=== PATIENT | male | born 1965 | race Caucasian/White ===

== ENCOUNTER 2019-09-30 18:20 | Emergency (ER) | payer MEDICAID, SELFPAY ==
[2019-09-30 18:38] VITALS: BP 126/76; PULSE 102; RESP 18; TEMP 36.5; O2SAT 98; BMI 30.2
--- NOTE | 2019-09-30 18:56 | W.ED.MALEGU ---
HPI - Male Genitourinary General: Chief complaint: Urogenital-Male Stated complaint: unable to urinate Time Seen by Provider: 09/30/19 18:45 History of Present Illness: HPI Narrative: Patient seen in clinic in [place] earlier today and a Zuñiga cath was attempted to be placed and without any urine return. Catheter is left in 3 hours still do not have a urine. We will send her to the ER by AUTUMN Morales for further evaluation. Patient recently in a hospital in [place] had multiple infections and skin abscesses catheter was placed and been left in for the last 4 weeks because he has not been able to urinate on his own. Does have follow-up with Dr. Norris scheduled. Complaint: other (Unable to urinate) Onset (ago): week(s) Duration: constant Associated symptoms: Reports no associated symptoms; Deny nausea or vomiting Review of Systems Narrative: Recent skin infections Const: Denies: fever, chills or body aches Eyes: Denies: change in vision or blurry vision ENMT: Denies: throat pain or nasal congestion Card: Denies: chest pain or shortness of breath on exertion Resp: Denies: shortness of breath, productive cough or non-productive cough GI: Denies: abdominal pain, nausea or vomiting : Reports: difficulty urinating Musc: Denies: extremity pain Skin/Breast: Denies: rash Neuro: Denies: headache Psych: Denies: anxiety or depression Juan/Lymph: Denies: easy bruising PFSH ED PFSH: Social History Smoking and tobacco status: never smoked Physical Exam Const: COMMON NORMALS: no apparent distress, average body habitus and oriented x3 HENMT: COMMON NORMALS: normocephalic HEAD & SCALP: normal to inspection and normocephalic FACE & SINUS: normal facial exam Eye: COMMON NORMALS: conjunctivae normal GENERAL EYE: normal appearance of both eyes CONJUNCTIVA: Yes conjunctivae normal Neck/C-Spine: COMMON NORMALS: no JVD Chest: COMMONS NORMALS: inspection of chest normal Resp: COMMON NORMALS: normal respiratory effort and clear to auscultation bilaterally AUSCULTATION: clear to auscultation bilaterally Cardio: COMMON NORMALS: no JVD, regular rate and regular rhythm RATE: regular rate RHYTHM: regular rhythm GI: COMMON NORMALS: normal to inspection, nondistended, normoactive bowel sounds Extremity: COMMON NORMALS: normal to inspection and full ROM Neuro: COMMON NORMALS: oriented x3 Course Vital Signs: Vital signs: Vital Signs Temperature 97.7 F 09/30/19 18:38 Pulse Rate 102 H 09/30/19 18:38 Respiratory Rate 18 09/30/19 18:38 Blood Pressure 126/76 09/30/19 18:38 Pulse Oximetry 98 09/30/19 18:38 Coding Level of Care Code ED 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
[2019-09-30 19:55] VITALS: BP 112/73; PULSE 100; RESP 14; TEMP 36.6; O2SAT 96
== END 2019-09-30 19:50 | disposition home or self-care (01) ==
PROVIDERS: Emergency Provider Nurse Practitioner Family
DX: R39.198 Other difficulties with micturition (principal)
CPT/HCPCS: 12345; 51702; 99282

== ENCOUNTER 2019-11-17 15:43 | Outpatient (RCR) | payer MEDICAID, SELFPAY ==
--- NOTE | 2019-11-17 16:06 | XR_ITS ---
WS: [id number] RIGHT FOOT: 3 VIEW(S) TECHNIQUE: AP, oblique and lateral. HISTORY: PAIN, REDNESS, nonhealing ULCER COMPARISON: None available. Amputation sites along the proximal metatarsals. Soft tissue edema surrounding the amputation sites. Superficial soft tissue erosion distal to the sec ond metatarsal amputation. No definite osteomyelitis or bone destruction. No air in the soft tissues. Small calcaneal spur. XR/XR foot RT min 3V* [id number] IMPRESSION: 1. No radiographic evidence for osteomyelitis. 2. Soft tissue edema at the amputation site. Superficial soft tissue ulceratio n distal to the second metatarsal.
== END 2019-11-17 23:59 | disposition home or self-care (01) ==
LOC: WOUND 15:43
PROVIDERS: PCP Nurse Practitioner Family; Visit Provider Thoracic Surgery (Cardiothoracic Vascular Surgery)
DX: E11.621 Type 2 diabetes mellitus with foot ulcer (principal); L97.412 Non-pressure chronic ulcer of right heel and midfoot with fat layer exposed; M79.671 Pain in right foot
CPT/HCPCS: 11042; 73630; 99203; L4387

== ENCOUNTER 2019-11-23 09:42 | Outpatient (CLI) | payer MEDICAID, SELFPAY | END 2019-11-23 09:43 | disposition home or self-care (01) | LOC: WOUND 09:43 | PROVIDERS: PCP Nurse Practitioner Family; Visit Provider Thoracic Surgery (Cardiothoracic Vascular Surgery) | DX: E11.621 Type 2 diabetes mellitus with foot ulcer (principal); L97.412 Non-pressure chronic ulcer of right heel and midfoot with fat layer exposed | CPT/HCPCS: 11042 ==

== ENCOUNTER 2019-11-30 09:45 | Outpatient (CLI) | payer MEDICAID, SELFPAY | END 2019-11-30 09:46 | disposition home or self-care (01) | LOC: WOUND 09:46 | PROVIDERS: Visit Provider Thoracic Surgery (Cardiothoracic Vascular Surgery) | DX: E11.621 Type 2 diabetes mellitus with foot ulcer (principal); L97.412 Non-pressure chronic ulcer of right heel and midfoot with fat layer exposed | CPT/HCPCS: 11042 ==

== ENCOUNTER 2019-12-02 09:59 | Day surgery (SDC) | payer MEDICAID, SELFPAY ==
[2019-11-25 14:00] VITALS: BMI 31.4
--- NOTE | 2019-11-28 08:33 | W.PM.OPSFHP ---
Same Day Surgery H&P Indication for Procedure/HPI DATE OF PROCEDURE: November 28, 2019 CHIEF COMPLAINT/INDICATIONFOR SURGICAL PROCEDURE: Screening colonoscopy PREOP DIAGNOSIS: Screening colonoscopy PLANNED PROCEDRUE: Operation Date: 11/28/19 07:50 Proposed Procedures p EGD/COLONSCOPY 81829 D64.9 G0121 Z12.11(Not Applicable) - Leroy Wagner MD s Colonoscopy(Not Applicable) - Leroy Wagner MD Medications/Allergies* Home Medications Medication Instructions Recorded Confirmed Type atorvastatin 40 mg PO DAILY 09/30/19 11/25/19 History citalopram 20 mg PO DAILY 09/30/19 11/25/19 History furosemide 40 mg PO DAILY 09/30/19 11/25/19 History insulin detemir U-100 [Levemir See Rx Instructions .ROUTE .COMPLEX 09/30/19 11/25/19 History U-100 Insulin] insulin lispro [Humalog U-100 7 unit SUBCUT TID 09/30/19 11/25/19 History Insulin] lisinopril 5 mg PO DAILY 09/30/19 11/25/19 History metoprolol tartrate 25 mg PO BID 09/30/19 11/25/19 History Allergies/Adverse Reactions Allergy/AdvReac Type Severity Reaction Status Date / Time No Known Allergies Allergy Verified 11/01/19 14:46 Pertinent History/Comorbid Conditions* Medical History (Updated 11/01/19 @ 14:59 by Leroy Wagner MD) Acute cystitis without hematuria Acute urinary retention Hypertension Insulin dependent diabetes mellitus Surgical History (Updated 10/26/19 @ 10:28 by Juan Norris MD) S/P cholecystectomy Family History (Updated 10/26/19 @ 08:28 by Keila Peoples LPN) Father, at age 60 Mother, at age 73 Myocardial infarction (lateral wall) Father Diabetes Mother Social History Smoking and tobacco status: never smoked Alcohol intake: never Marital status: Single Current occupational status: disabled History of recent travel: No Pertinent Exam Findings alert, oriented x 3, clear to auscultation bilaterally, regular rate & rhythm, operative site marked and procedure specific exam findings Recommendations Surgery/Procedure today Coding Level of Care Code Acute Pantograph I Engraver for Madelyn Chavarria
--- NOTE | 2019-12-02 09:18 | P.HP_ITS ---
Same Day Surgery H&P Indication for Procedure/HPI DATE OF PROCEDURE: December 02, 2019 CHIEF COMPLAINT/INDICATIONFOR SURGICAL PROCEDURE: Screen for colon cancer PREOP DIAGNOSIS: Screening colonoscopy PLANNED PROCEDRUE: Operation Date: 12/02/19 11:20 Proposed Procedures p EGD/COLONSCOPY 39161 D64.9 G0121 Z12.11(Not Applicable) - Leroy Wagner MD s Colonoscopy(Not Applicable) - Leroy Wagner MD Medications/Allergies* Home Medications Medication Instructions Recorded Confirmed Type atorvastatin 40 mg PO DAILY 09/30/19 11/25/19 History citalopram 20 mg PO DAILY 09/30/19 11/25/19 History furosemide 40 mg PO DAILY 09/30/19 11/25/19 History insulin detemir U-100 [Levemir See Rx Instructions .ROUTE .COMPLEX 09/30/19 11/25/19 History U-100 Insulin] insulin lispro [Humalog U-100 7 unit SUBCUT TID 09/30/19 11/25/19 History Insulin] lisinopril 5 mg PO DAILY 09/30/19 11/25/19 History metoprolol tartrate 25 mg PO BID 09/30/19 11/25/19 History Allergies/Adverse Reactions Allergy/AdvReac Type Severity Reaction Status Date / Time No Known Allergies Allergy Verified 11/01/19 14:46 Pertinent History/Comorbid Conditions* Medical History (Updated 11/01/19 @ 14:59 by Leroy Wagner MD) Acute cystitis without hematuria Acute urinary retention Hypertension Insulin dependent diabetes mellitus Surgical History (Updated 10/26/19 @ 10:28 by Juan Norris MD) S/P cholecystectomy Family History (Updated 10/26/19 @ 08:28 by Keila Peoples LPN) Father, at age 60 Mother, at age 73 Myocardial infarction (lateral wall) Father Diabetes Mother Social History Smoking and tobacco status: never smoked Alcohol intake: never Marital status: Single Current occupational status: disabled History of recent travel: No Pertinent Exam Findings alert, oriented x 3, clear to auscultation bilaterally, regular rate & rhythm, operative site marked and procedure specific exam findings Recommendations Surgery/Procedure today Coding Level of Care Code Acute 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
[2019-12-02 10:19] VITALS: BP 126/77; PULSE 102; RESP 16; TEMP 36.2; O2SAT 96
--- NOTE | 2019-12-02 10:21 | ANES.PREANE2 ---
Pre-Anesthetic Assessment Pre-Anesthetic Assessment: Height/Weight: Height 1.8 m Weight 102.058 kg Temp Pulse Resp BP Pulse Ox 97.1 F L 102 H 16 126/77 96 12/02/19 10:19 12/02/19 10:19 12/02/19 10:19 12/02/19 10:19 12/02/19 10:19 Preop Diagnosis: c Proposed Procedure: Operation Date: 12/02/19 11:20 Proposed Procedures p EGD/COLONSCOPY 78473 D64.9 G0121 Z12.11(Not Applicable) - Leroy Wagner MD s Colonoscopy(Not Applicable) - Leroy Wagner MD Familial anesthetic complications: None Was Beta Melissa taken within 24 hours: N/A (will give PO med now (HR 101)) Last intake: NPO > 8 hrs Social: Social History: No alcohol and No tobacco Exam: Pre-Anes Outpt Exam: alert, oriented x 3, clear to auscultation bilaterally and regular rate & rhythm Airway: Cervical ROM: WNL MP: 2 Dentition: Chipped Additional comments: missing Pulmonary: Pulmonary: Cough (chronic (unkown etiology) - started before july, cat vs dust allergen) CV/HEM: CV/HEM: HTN : : None reported Hepatic: Hepatic: None reported GI: GI: None reported Metabolic: Metabolic: DM and Hyperlipidemia Musc/skel: Musc/skel: None reported Neuropsych: Comments: In july had L side pain and couldn't walk, kept in hospital for a month, but he is unaware of what caused. He said they ruled out a stroke. Anesthetic Plan: ASA status: 2 Anesthesia: MAC Risk of > 500 ml blood loss (7ml/kg in children): No PFSH Anesthesia PFSH: Medical History (Updated 11/01/19 @ 14:59 by Leroy Wagner MD) Acute cystitis without hematuria Acute urinary retention Hypertension Insulin dependent diabetes mellitus Surgical History S/P cholecystectomy Family History Father , at age 60 Myocardial infarction (lateral wall) Mother , at age 73 Diabetes Social History Smoking and tobacco status: never smoked Alcohol intake: never Marital status: Single Current occupational status: disabled History of recent travel: No Data Anesthesia Cardiac Studies: No Data to Display
[2019-12-02] MEDS: metoprolol tartrate 25 mg Tablet PO (10:29)
[2019-12-02 10:42] LABS: Glucose Point of Care 315 mg/dL (70-110)
[2019-12-02] MEDS: sodium chloride 0.9% 1,000 ML 30 ML IV (10:42)
[2019-12-02] MEDS: insulin regular-human 100 units/1 mL 10 UNIT IVP (10:50)
[2019-12-02 12:20] VITALS: BP 97/69; PULSE 79; RESP 16; TEMP 36.2; O2SAT 94
[2019-12-02 12:43] VITALS: BP 95/64; PULSE 76; RESP 18; O2SAT 98
== END 2019-12-02 13:05 | disposition home or self-care (01) ==
PROVIDERS: PCP Nurse Practitioner Family; Visit Provider Internal Medicine
PROC: 0DJD8ZZ Inspection of Lower Intestinal Tract, Via Natural or Artificial Opening Endoscopic (ICD-10-PCS; CPT 45378; 2019-12-02 11:15)
PROC: 0DJ08ZZ Inspection of Upper Intestinal Tract, Via Natural or Artificial Opening Endoscopic (ICD-10-PCS; CPT 43235; 2019-12-02 11:15)
DX: Z12.11 Encounter for screening for malignant neoplasm of colon (principal); D50.9 Iron deficiency anemia, unspecified; I10 Essential (primary) hypertension; E11.9 Type 2 diabetes mellitus without complications; E78.5 Hyperlipidemia, unspecified
CPT/HCPCS: 12345; 36416; 43235; 45378; 82962; 96374; J1815; J2001; J2704; J7030

== ENCOUNTER 2019-12-07 10:28 | Outpatient (CLI) | payer MEDICAID, SELFPAY | END 2019-12-07 10:29 | disposition home or self-care (01) | LOC: WOUND 10:28 | PROVIDERS: PCP Nurse Practitioner Family; Visit Provider Thoracic Surgery (Cardiothoracic Vascular Surgery) | DX: E11.621 Type 2 diabetes mellitus with foot ulcer (principal); L97.413 Non-pressure chronic ulcer of right heel and midfoot with necrosis of muscle | CPT/HCPCS: 11042 ==

== ENCOUNTER 2019-12-14 10:36 | Outpatient (CLI) | payer MEDICAID, SELFPAY | END 2019-12-14 10:37 | disposition home or self-care (01) | LOC: WOUND 10:37 | PROVIDERS: PCP Nurse Practitioner Family; Visit Provider Thoracic Surgery (Cardiothoracic Vascular Surgery) | DX: E11.621 Type 2 diabetes mellitus with foot ulcer (principal); L97.413 Non-pressure chronic ulcer of right heel and midfoot with necrosis of muscle | CPT/HCPCS: 11042 ==

== ENCOUNTER 2019-12-16 14:23 | Outpatient (CLI) | payer MEDICAID, SELFPAY | END 2019-12-16 14:24 | disposition home or self-care (01) | LOC: WOUND 14:24 | PROVIDERS: PCP Nurse Practitioner Family; Visit Provider Surgery | DX: E11.621 Type 2 diabetes mellitus with foot ulcer (principal); L97.412 Non-pressure chronic ulcer of right heel and midfoot with fat layer exposed | CPT/HCPCS: 11042 ==

== ENCOUNTER → 2019-12-19 09:16 | Outpatient (BNVA) | payer MEDICAID, SELFPAY | PROVIDERS: PCP Nurse Practitioner Family; Visit Provider Urology | DX: R33.8 Other retention of urine (principal); N30.00 Acute cystitis without hematuria | CPT/HCPCS: 81001 ==

== ENCOUNTER 2019-12-21 11:03 | Outpatient (CLI) | payer MEDICAID, SELFPAY | END 2019-12-21 11:04 | disposition home or self-care (01) | LOC: WOUND 11:04 | PROVIDERS: PCP Nurse Practitioner Family; Visit Provider Thoracic Surgery (Cardiothoracic Vascular Surgery) | DX: E11.621 Type 2 diabetes mellitus with foot ulcer (principal); L97.412 Non-pressure chronic ulcer of right heel and midfoot with fat layer exposed | CPT/HCPCS: 11042 ==

== ENCOUNTER 2019-12-21 13:44 | Emergency (ER) | payer MEDICAID, SELFPAY ==
[2019-12-21 13:51] VITALS: BP 124/82; PULSE 80; RESP 16; TEMP 36.8; O2SAT 97; BMI 31.4
--- NOTE | 2019-12-21 13:56 | ED_ITS ---
HPI - Nausea/Vomiting/Diarrhea General: Chief complaint: Nausea/Vomiting/Diarrhea Stated complaint: n/v Time Seen by Provider: 12/21/19 13:52 Source: patient Mode of arrival: ambulatory Limitations: no limitations History of Present Illness: HPI Narrative: Patient comes in with nausea and vomiting since yesterday evening. Patient reports that his blood sugars been running high and his last A1c was 13. 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 Patient reports that his blood sugar this morning was 350 and then 250 at wound care. Patient appears well. Patient appears in no pain. Review of Systems General: Reports: 10 or more systems reviewed and unremarkable except in HPI and below PFSH ED PFSH: Medical History (Updated 12/21/19 @ 15:53 by AUTUMN Giles) Acute cystitis without hematuria Acute urinary retention Hypertension Insulin dependent diabetes mellitus Surgical History H/O amputation all toes S/P cholecystectomy S/P debridement thigh and foot Family History Father , at age 60 Myocardial infarction (lateral wall) Mother , at age 73 Diabetes Social History Smoking and tobacco status: never smoked Alcohol intake: never Marital status: Single Current occupational status: disabled History of recent travel: No Physical Exam Const: COMMON NORMALS: no acute distress and patient oriented x3 GENERAL APPEARANCE: cooperative HENMT: COMMON NORMALS: normocephalic, TM's normal bilaterally and Normal external nose present HEAD & SCALP: normal to inspection and normocephalic NOSE: Normal external nose present TYMPANIC MEMBRANE: TM's normal bilaterally MOUTH: Normal oral and palatal mucosa present THROAT: posterior oropharynx normal Eye: GENERAL EYE: appearance normal, both eyes and all related structures Neck/C-Spine: COMMON NORMALS: full ROM Lymph: LYMPHATIC: no lymphadenopathy noted Chest: COMMONS NORMALS: normal inspection of the chest Resp: COMMON NORMALS: normal respiratory effort EFFORT & INSPECTION: Yes able to speak in complete sentences Cardio: COMMON NORMALS: regular rate and regular rhythm RATE: regular rate RHYTHM: regular rhythm GI: COMMON NORMALS: non-tender : COMMON NORMALS: Yes no CVA tenderness BLADDER/KIDNEY EXAM: Yes no CVA tenderness Back/Pelvis: COMMON NORMALS: no CVA tenderness and thoracic and lumbar spine normal to inspection Extremity: COMMON NORMALS: normal to inspection Neuro: COMMON NORMALS: patient oriented x3 and moves all extremities Psych: COMMON NORMALS: mental status grossly normal and cooperative Skin: COMMON NORMALS: no rashes or lesions noted GENERAL SKIN EXAM: no rashes or lesions noted Course ED course: 1550, patient appears improved. Patient did have some positive ketones in his serum. Patient does report improvement with his nausea. Patient did ask for some medication to help with stomach irritation.wjw 1635, patient felt much relieved after administration of GI cocktail and Reglan. Reviewed instructions for aftercare with patient. Patient reported understanding and agreed to plan. Vital Signs: Vital signs: Vital Signs Temperature 98.3 F 12/21/19 13:51 Pulse Rate 100 12/21/19 15:46 Respiratory Rate 16 12/21/19 15:46 Blood Pressure 117/89 12/21/19 15:46 Pulse Oximetry 97 12/21/19 15:46 MDM - Nausea/Vomiting/Diarrhea MDM Narrative: Medical decision making narrative: Patient comes in today for complaints of nausea and vomiting since last night. Patient appears well. Exam notes no abdominal tenderness. Respirations were even lungs were clear to auscultation vital signs were normal. Patient does have a history of diabetes and reports that his sugar got as high as 500 last night. Differential diagnosis includes gastroenteritis, pancreatitis, diabetic ketoacidosis. CBC was normal. CMP noted a blood glucose of 288, sodium 135, BUN of 23, and anion gap of 20. Patient did have a small amount of ketones noted in his serum. Patient was hydrated with 1500 mL's of saline. Patient was given Reglan and a GI cocktail. Patient had good results with resolution of symptoms. Patient will be continued on medication for nausea and vomiting. Patient will then continue his routine treatment for his diabetes. Suspect a bout of gastroenteritis. Patient should monitor for worsening symptoms and return to the ER as needed. Patient reported understanding of care plan and need for follow-up. Lab Data: Labs: Lab Results 12/21/19 12/21/19 12/21/19 Range/Units 14:04 14:13 14:13 WBC 9.1 (4.0-10.0) 10^3/ uL RBC 5.23 (4.1-5.3) 10^6/u L Hgb 14.2 (11.7-16.6) g/dL Hct 43.8 (42.0-52.0) % MCV 83.7 (80-94) fL MCH 27.2 L (28.0-34.0) pg MCHC 32.4 (30.0-36.0) g/dL RDW 13.5 (12.1-15.1) % Plt Count 311 (130-400) 10^3/c mm MPV 10.0 (7.4-10.4) fL Neut % (Auto) 68.8 % Lymph % (Auto) 22.3 % Chester % (Auto) 6.3 % Eos % (Auto) 1.4 % Baso % (Auto) 0.7 % Neut # (Auto) 6.3 (1.8-7.7) 10^3/u L Lymph # (Auto) 2.0 (0.8-4.8) 10^3/u L Chester # (Auto) 0.6 (0.2-0.9) 10^3/u L Eos # (Auto) 0.1 (0.0-0.8) 10^3/u L Baso # (Auto) 0.1 (0.0-0.1) 10^3/u L Nucleated RBC % (a uto) 0 % Nucleated RBCs # 0.0 /100WBC Sodium 135 L (136-145) mmol/L Potassium 4.4 (3.5-5.1) mmol/L Chloride 95 L (98-107) mmol/L Carbon Dioxide 24 (22-29) mmol/L Anion Gap 20.4 H (5-19) BUN 23 H (6-20) mg/dL Creatinine 0.9 (0.7-1.2) mg/dL GFR Calculation 87.6 L (90-130) mL/min Glucose 288 H (65-115) mg/dL Calculated Osmolal ity 287 (285-295) mOsm/k g Lactic Acid (0.5-2.2) mmol/L Calcium 10.5 (8.5-10.5) mg/dL Total Bilirubin 0.3 (0.15-1.2) mg/dL AST 19 (0-40) U/L ALT 18 (0-41) U/L Alkaline Phosphata se 116 (40-130) IU/L Total Protein 8.0 (6.6-8.7) g/dL Albumin 4.2 (3.5-5.2) g/dL Globulin 3.8 (1.3-4.6) g/dL Lipase 26 (13-60) U/L Urine Color Yellow (Yellow) Urine Appearance Clear (CLEAR) Urine pH 5.0 (5-7) Ur Specific Gravit y 1.020 (1.005-1.030) Urine Protein 1+ H (Negative) Urine Glucose (UA) 4+ H (Normal) Urine Ketones 1+ H (Negative) Urine Blood Neg (Negative) Urine Nitrate Negative (Negative) Urine Bilirubin Neg (NEGATIVE) Urine Urobilinogen Norm (Negative) mg/dL Ur Leukocyte Destiny ase Negative (Negative) Urine RBC Rare (0-2) /hpf Urine WBC None (0-5) /hpf Ur Squamous Epith Cells 0-4 H (0-5) Urine Bacteria Trace (NONE) Urine Mucus 2+ Serum Ketones (Negative) 12/21/19 12/21/19 Range/Units 14:13 14:13 WBC (4.0-10.0) 10^3/ uL RBC (4.1-5.3) 10^6/u L Hgb (11.7-16.6) g/dL Hct (42.0-52.0) % MCV (80-94) fL MCH (28.0-34.0) pg MCHC (30.0-36.0) g/dL RDW (12.1-15.1) % Plt Count (130-400) 10^3/c mm MPV (7.4-10.4) fL Neut % (Auto) % Lymph % (Auto) % Chester % (Auto) % Eos % (Auto) % Baso % (Auto) % Neut # (Auto) (1.8-7.7) 10^3/u L Lymph # (Auto) (0.8-4.8) 10^3/u L Chester # (Auto) (0.2-0.9) 10^3/u L Eos # (Auto) (0.0-0.8) 10^3/u L Baso # (Auto) (0.0-0.1) 10^3/u L Nucleated RBC % (a uto) % Nucleated RBCs # /100WBC Sodium (136-145) mmol/L Potassium (3.5-5.1) mmol/L Chloride (98-107) mmol/L Carbon Dioxide (22-29) mmol/L Anion Gap (5-19) BUN (6-20) mg/dL Creatinine (0.7-1.2) mg/dL GFR Calculation (90-130) mL/min Glucose (65-115) mg/dL Calculated Osmolal ity (285-295) mOsm/k g Lactic Acid 2.0 (0.5-2.2) mmol/L Calcium (8.5-10.5) mg/dL Total Bilirubin (0.15-1.2) mg/dL AST (0-40) U/L ALT (0-41) U/L Alkaline Phosphata se (40-130) IU/L Total Protein (6.6-8.7) g/dL Albumin (3.5-5.2) g/dL Globulin (1.3-4.6) g/dL Lipase (13-60) U/L Urine Color (Yellow) Urine Appearance (CLEAR) Urine pH (5-7) Ur Specific Gravit y (1.005-1.030) Urine Protein (Negative) Urine Glucose (UA) (Normal) Urine Ketones (Negative) Urine Blood (Negative) Urine Nitrate (Negative) Urine Bilirubin (NEGATIVE) Urine Urobilinogen (Negative) mg/dL Ur Leukocyte Destiny ase (Negative) Urine RBC (0-2) /hpf Urine WBC (0-5) /hpf Ur Squamous Epith Cells (0-5) Urine Bacteria (NONE) Urine Mucus Serum Ketones Positive H (Negative) Discharge Plan Discharge Patient Disposition: Home, Self-Care Clinical Impression: Hyperglycemia Nausea & vomiting Qualifiers: Vomiting type: unspecified Vomiting Intractability: non-intractable Qualified Code(s): R11.2 - Nausea with vomiting, unspecified Condition: Stable Prescriptions: New metoclopramide HCl 10 mg tablet 10 mg PO Q6H 7 Days Qty: 28 RF: 0 Carafate 1 gram tablet 1 gm PO TID Qty: 30 RF: 0 No Action furosemide 40 mg tablet 40 mg PO DAILY RF: 0 atorvastatin 40 mg tablet 40 mg PO DAILY RF: 0 citalopram 20 mg tablet 20 mg PO DAILY RF: 0 lisinopril 5 mg tablet 5 mg PO DAILY RF: 0 insulin lispro [Humalog U-100 Insulin] 100 unit/mL Solution See Rx Instructions .ROUTE .COMPLEX RF: 0 metoprolol tartrate 25 mg tablet 25 mg PO BID RF: 0 Levemir U-100 Insulin 100 unit/mL Solution See Rx Instructions .ROUTE .COMPLEX RF: 0 Pepto-Bismol 262 mg Tablet,Chewable 262 mg PO PRN RF: 0 tamsulosin 0.4 mg capsule 0.4 mg PO DAILY RF: 0 Discharge Orders: Discharge Order (Routine); Ordered 12/21/19 Ordered By: Judd Kern Referrals: Catherine Barcenas FNP-C [Primary Care Provider] - Discharge Diet: Advance as tolerated Discharge Activity: Increase activity as tolerated Activity Restrictions/Additional Instructions: Continue with routine medications as directed. Drink plenty of water. Symptoms should improve within 3 to 5 days. But if symptoms persist or worsen and you are not able to hold any fluids down return to the ER immediately. Follow-up with primary care in 1 week for recheck. Coding Level of Care Code ED Small Electric Engine Technician for Madelyn Fwdiya Exam Comprehensive
[2019-12-21 14:25] LABS: Basophils # 0.1 10^3/uL (0.0-0.1); Basophils % 0.7 %; Eosinophils # 0.1 10^3/uL (0.0-0.8); Eosinophils % 1.4 %; Hematocrit 43.8 % (42.0-52.0); Hemoglobin 14.2 g/dL (11.7-16.6); Lymphocytes % 22.3 %; Mean Corpuscular HGB Conc 32.4 g/dL (30.0-36.0); Mean Corpuscular Hemoglobin 27.2 pg (28.0-34.0); Mean Corpuscular Volume 83.7 fL (80-94); Monocytes # 0.6 10^3/uL (0.2-0.9); Monocytes % 6.3 %; Neutrophils # 6.3 10^3/uL (1.8-7.7); Neutrophils % 68.8 %; Nucleated Red Blood Cells % 0 %; Platelet Count 311 10^3/cmm (130-400); Red Blood Count 5.23 10^6/uL (4.1-5.3); Red Cell Distribution Width 13.5 % (12.1-15.1); White Blood Count 9.1 10^3/uL (4.0-10.0)
[2019-12-21 14:31] LABS: Add Urine Microscopic? YES; Bilirubin Urine Neg (NEGATIVE); Blood Urine Neg (Negative); Glucose Urine UA 4+ (Normal); Ketones Urine 1+ (Negative); Leukocyte Esterase Urine Negative (Negative); Nitrate Urine Negative (Negative); Protein Urine 1+ (Negative); Urine Appearance Clear (CLEAR); Urine Color Yellow (Yellow); Urobilinogen Urine Norm (Negative)
[2019-12-21 14:31] LABS: Ketone (Acetest) Serum Positive (Negative)
[2019-12-21] MEDS: ondansetron 2 mg/ML SDV 2 mL 4 MG IVP (14:34)
[2019-12-21] MEDS: sodium chloride 0.9% 1,000 ML 999 ML IV (14:34)
[2019-12-21 14:39] LABS: Alanine Aminotransferase 18 U/L (0-41); Albumin Level 4.2 g/dL (3.5-5.2); Alkaline Phosphatase 116 IU/L (40-130); Anion Gap 20.4 (5-19); Aspartate Amino Transferase 19 U/L (0-40); Blood Urea Nitrogen 23 mg/dL (6-20); Calcium 10.5 mg/dL (8.5-10.5); Carbon Dioxide 24 mmol/L (22-29); Chloride 95 mmol/L (98-107); Globulin 3.8 g/dL (1.3-4.6); Glomerular Filtration Rate 87.6 mL/min (90-130); Glucose 288 mg/dL (65-115); Lipase 26 U/L (13-60); Osmolality Calculated 287 mOsm/kg (285-295); Potassium 4.4 mmol/L (3.5-5.1); Sodium 135 mmol/L (136-145); Total Bilirubin 0.3 mg/dL (0.15-1.2)
[2019-12-21 14:42] LABS: RBC Urine RARE /hpf (0-2)
[2019-12-21 14:43] LABS: Add Urine Culture? No; Bacteria Urine TRACE; Mucus Urine 2+; Squamous Epithelial Cell Urine 0-4 (0-5)
[2019-12-21 15:46] VITALS: BP 117/89; PULSE 100; RESP 16; O2SAT 97
--- NOTE | 2019-12-21 15:47 | PC.NURSE ---
Physician was at bedside at time of vitals.
[2019-12-21] MEDS: lidocaine 2% viscous 15 ML, aluminum-mag hydrox-simethicon 30 ML, sucralfate oral liq 1 GM PO (16:10)
[2019-12-21] MEDS: sodium chloride 0.9% 500 ML 999 ML IV (16:10)
[2019-12-21] MEDS: metoclopramide 5 mg/mL SDV 2 mL 10 MG IVP (16:11)
[2019-12-21 17:07] VITALS: BP 135/81; PULSE 91; RESP 14; O2SAT 96
== END 2019-12-21 17:08 | disposition home or self-care (01) ==
PROVIDERS: Emergency Provider Nurse Practitioner Family; PCP Nurse Practitioner Family
DX: E11.65 Type 2 diabetes mellitus with hyperglycemia (principal); Z79.4 Long term (current) use of insulin; I10 Essential (primary) hypertension
CPT/HCPCS: 12345; 36415; 80053; 81001; 82009; 83605; 83690; 85025; 96361; 96374; 96375; 99282; 99283; J2405; J2765; J7030; J7040

== ENCOUNTER → 2019-12-28 11:01 | Outpatient (BNVA) | payer MEDICAID, SELFPAY | PROVIDERS: PCP Nurse Practitioner Family; Visit Provider Specialist | DX: G56.22 Lesion of ulnar nerve, left upper limb (principal) | CPT/HCPCS: 95908 ==

== ENCOUNTER 2019-12-28 13:14 | Outpatient (CLI) | payer MEDICAID, SELFPAY | END 2019-12-28 13:15 | disposition home or self-care (01) | LOC: WOUND 13:15 | PROVIDERS: PCP Nurse Practitioner Family; Visit Provider Thoracic Surgery (Cardiothoracic Vascular Surgery) | DX: E11.621 Type 2 diabetes mellitus with foot ulcer (principal); L97.422 Non-pressure chronic ulcer of left heel and midfoot with fat layer exposed | CPT/HCPCS: 11042 ==

== ENCOUNTER 2020-01-04 13:19 | Outpatient (CLI) | payer MEDICAID, SELFPAY | END 2020-01-04 13:20 | disposition home or self-care (01) | PROVIDERS: PCP Nurse Practitioner Family; Visit Provider Nurse Practitioner Family | DX: E11.621 Type 2 diabetes mellitus with foot ulcer (principal); L97.412 Non-pressure chronic ulcer of right heel and midfoot with fat layer exposed | CPT/HCPCS: 11042 ==

== ENCOUNTER 2020-01-11 13:21 | Outpatient (CLI) | payer MEDICAID, SELFPAY | END 2020-01-11 13:22 | disposition home or self-care (01) | LOC: WOUND 13:22 | PROVIDERS: PCP Nurse Practitioner Family; Visit Provider Thoracic Surgery (Cardiothoracic Vascular Surgery) | DX: E11.621 Type 2 diabetes mellitus with foot ulcer (principal); L97.412 Non-pressure chronic ulcer of right heel and midfoot with fat layer exposed | CPT/HCPCS: 11042 ==

== ENCOUNTER 2020-01-18 10:56 | Outpatient (CLI) | payer MEDICAID, SELFPAY | END 2020-01-18 10:57 | disposition home or self-care (01) | LOC: WOUND 10:57 | PROVIDERS: PCP Nurse Practitioner Family; Visit Provider Thoracic Surgery (Cardiothoracic Vascular Surgery) | DX: E11.621 Type 2 diabetes mellitus with foot ulcer (principal); L97.419 Non-pressure chronic ulcer of right heel and midfoot with unspecified severity | CPT/HCPCS: 99212 ==

== ENCOUNTER 2020-01-25 11:01 | Outpatient (CLI) | payer MEDICAID, SELFPAY | END 2020-01-25 11:02 | disposition home or self-care (01) | LOC: WOUND 11:01 | PROVIDERS: PCP Nurse Practitioner Family; Visit Provider Thoracic Surgery (Cardiothoracic Vascular Surgery) | DX: Z09 Encounter for follow-up examination after completed treatment for conditions other than malignant neoplasm (principal) | CPT/HCPCS: 99212 ==

== ENCOUNTER 2020-02-01 09:47 | Outpatient (CLI) | payer MEDICAID, SELFPAY | END 2020-02-01 09:48 | disposition home or self-care (01) | LOC: WOUND 09:53 | PROVIDERS: PCP Nurse Practitioner Family; Visit Provider Thoracic Surgery (Cardiothoracic Vascular Surgery) | DX: E11.621 Type 2 diabetes mellitus with foot ulcer (principal); L97.412 Non-pressure chronic ulcer of right heel and midfoot with fat layer exposed | CPT/HCPCS: 11042 ==

== ENCOUNTER → 2020-02-07 10:11 | Outpatient (BNVA) | payer MEDICAID, SELFPAY | PROVIDERS: PCP Nurse Practitioner Family; Visit Provider Podiatrist Foot & Ankle Surgery | DX: L97.522 Non-pressure chronic ulcer of other part of left foot with fat layer exposed (principal); Z89.9 Acquired absence of limb, unspecified; Z89.422 Acquired absence of other left toe(s) | CPT/HCPCS: 73630 ==

== ENCOUNTER 2020-02-07 10:43 | Outpatient (CLI) | payer MEDICAID, SELFPAY | END 2020-02-07 10:44 | disposition home or self-care (01) | LOC: SPT 10:44 | PROVIDERS: PCP Nurse Practitioner Family; Visit Provider Podiatrist Foot & Ankle Surgery | DX: Z46.89 Encounter for fitting and adjustment of other specified devices (principal); L97.522 Non-pressure chronic ulcer of other part of left foot with fat layer exposed; Z89.9 Acquired absence of limb, unspecified | CPT/HCPCS: 97760; L4361 ==

== ENCOUNTER 2020-02-08 09:53 | Outpatient (CLI) | payer MEDICAID, SELFPAY | END 2020-02-08 09:54 | disposition home or self-care (01) | LOC: WOUND 09:54 | PROVIDERS: PCP Nurse Practitioner Family; Visit Provider Emergency Medicine | DX: E11.621 Type 2 diabetes mellitus with foot ulcer (principal); L97.422 Non-pressure chronic ulcer of left heel and midfoot with fat layer exposed | CPT/HCPCS: 11042 ==

== ENCOUNTER 2020-02-22 10:18 | Outpatient (CLI) | payer MEDICAID, SELFPAY | END 2020-02-22 10:19 | disposition home or self-care (01) | LOC: WOUND 10:21 | PROVIDERS: PCP Nurse Practitioner Family; Visit Provider Nurse Practitioner Family | DX: Z09 Encounter for follow-up examination after completed treatment for conditions other than malignant neoplasm (principal) | CPT/HCPCS: 99212 ==

== ENCOUNTER 2020-03-01 14:12 | Outpatient (CLI) | payer MEDICAID, SELFPAY | END 2020-03-01 14:13 | disposition home or self-care (01) | LOC: SPT 14:12 | PROVIDERS: PCP Nurse Practitioner Family; Visit Provider Podiatrist Foot & Ankle Surgery | DX: Z46.89 Encounter for fitting and adjustment of other specified devices (principal); L97.512 Non-pressure chronic ulcer of other part of right foot with fat layer exposed | CPT/HCPCS: 97760; L4361 ==

== ENCOUNTER 2020-04-20 11:20 | Emergency (ER) | payer MEDICAID, SELFPAY ==
[2020-04-20] VITALS (7 sets, daily range): BP systolic 132–145; BP diastolic 75–90; PULSE 86–97; RESP 16–17; TEMP 36.8; O2SAT 85–96; BMI 34.2
--- NOTE | 2020-04-20 10:40 | XR_ITS ---
WS: [id number] Portable AP upright chest, 04/20/2020 Clinical Data: covid - cough Comparison: None. Findings: There is a patchy opacity in the left lower lobe which may represent minimal pneumonia. The right lung is clear. No nodules, masses or effusions are seen. The heart is normal. The pulmonary va scularity is not increased. No pneumothorax is seen. XR/XR chest 1V portable [id number] Impression: Patchy opacity in the left lower lobe which could represent pneumonia and recom mend repeat chest x-ray in one to 2 days.
--- NOTE | 2020-04-20 10:41 | ED_ITS ---
Documented by User: Hermelinda Martinesguicho 04/20/20 15:44 HPI - SOB/Dyspnea General: Chief Complaint: Upper Respiratory Infection Stated Complaint: covid+, coughing Time Seen by Provider: 04/20/20 17:18 Source: patient Mode of arrival: ambulatory Limitations: no limitations History of Present Illness: HPI Narrative: Pt test positive for Covid yesterday. Pt states he has increased SOB MD elicited complaint: shortness of breath and cough Pertinent past history: COPD and diabetes (DM Type 2) Context: other (COVID 19 positive) Exacerbating factors: exertion and coughing Relieving factors: oxygen and rest Known history of: COPD Associated symptoms: Reports chest congestion, cough and myalgias; Deny abdominal pain, chest pain, diaphoresis, dizziness, extremity pain, fever(s), hemoptysis, lightheadedness, nausea, orthopnea, palpitations, paresthesias, polydipsia, polyuria, rash, sense of impending doom, syncope, vomiting or other Treatment prior to arrival: oxygen Related Data: Home oxygen amount: none Review of Systems Const: Denies: fever(s) or diaphoresis Card: Denies: chest pain, palpitations, lightheadedness, syncope or orthopnea Resp: Reports: chest congestion; Denies: hemoptysis GI: Denies: abdominal pain, nausea or vomiting Musc: Denies: extremity pain Neuro: Denies: dizziness Endo: Denies: polyuria or polydipsia PFSH ED PFSH: Medical History Acute cystitis without hematuria Acute urinary retention Hypertension Insulin dependent diabetes mellitus Surgical History H/O amputation all toes S/P cholecystectomy S/P debridement thigh and foot Family History Father , at age 60 Myocardial infarction (lateral wall) Mother , at age 73 Diabetes Social History Smoking and tobacco status: never smoked Alcohol intake: never Substance/Drug Use: never Marital status: Single Current occupational status: disabled History of recent travel: No Course ED course: Called and spoke with Pulmonogist who recommends admission we do not have bed capacty here so I spoke to [facility] for transfer. [facility] recommends sending home on . Pt continues to desat with exertion. Based on patients physicale lizeth castellano, I feel patient should be admitted. No Covid beds here at [facility]. I am speaking with [facility] for COVID transfer Vital Signs: Vital signs: Vital Signs Temperature 98.3 F 04/20/20 10:38 Pulse Rate 87 04/20/20 16:42 Respiratory Rate 17 04/20/20 11:20 Blood Pressure 145/79 04/20/20 16:42 Pulse Oximetry 85 L 04/20/20 17:26 MDM - SOB/Dyspnea Lab Data: Labs: Lab Results 04/20/20 04/20/20 04/20/20 Range/Units 10:52 10:52 10:52 WBC 6.3 (4.0-10.0) 10^3/ uL RBC 4.34 (4.1-5.3) 10^6/u L Hgb 12.4 (11.7-16.6) g/dL Hct 39.0 L (42.0-52.0) % MCV 89.9 (80-94) fL MCH 28.6 (28.0-34.0) pg MCHC 31.8 (30.0-36.0) g/dL RDW 14.0 (12.1-15.1) % Plt Count 251 (130-400) 10^3/c mm MPV 9.2 (7.4-10.4) fL Neut % (Auto) 72.7 % Lymph % (Auto) 15.9 % [place] % (Auto) 7.8 % Eos % (Auto) 2.5 % Baso % (Auto) 0.3 % Neut # (Auto) 4.56 (1.8-7.7) 10^3/u L Lymph # (Auto) 1.0 (0.8-4.8) 10^3/u L [place] # (Auto) 0.5 (0.2-0.9) 10^3/u L Eos # (Auto) 0.2 (0.0-0.8) 10^3/u L Baso # (Auto) 0.0 (0.0-0.1) 10^3/u L Nucleated RBC % (a uto) 0 % Nucleated RBCs # 0.0 /100WBC D-Dimer 0.57 (0-0.59) ug/mIFE U Specimen Type Sample Site ABG pH (7.35-7.45) ABG pCO2 (35-45) mmHg ABG pO2 (80.0-100.0) mmH g ABG HCO3 (22-26) mmol/L ABG O2 Saturation ABG Base Excess (-2.0-2.0) mmol/ L Stephane Test A-a O2 Gradient (5-10) mmHg Hematocrit (42-52) % Hgb O2 Saturation (95-100) % Carboxyhemoglobin (0.4-20.1) %THgb Methemoglobin (0.4-1.5) % Total Hemoglobin (14-18) g/dL Ionized Calcium (1.1-1.4) mmol/L O2 Delivery Device O2 Liters/Min % FiO2 % Branch Operation Evaluation Manager ID Sodium 135 L (136-145) mmol/L Potassium 4.9 (3.5-5.1) mmol/L Chloride 102 (98-107) mmol/L Carbon Dioxide 24 (22-29) mmol/L Anion Gap 13.9 (5-19) BUN 21 H (6-20) mg/dL Creatinine 0.9 (0.7-1.2) mg/dL GFR Calculation 87.6 L (90-130) mL/min Glucose 208 H (65-115) mg/dL Calculated Osmolal ity 289 (285-295) mOsm/k g Lactate (0.5-2.2) mmol/L Calcium 8.5 (8.5-10.5) mg/dL Ferritin 228 (30-400) ng/mL Total Bilirubin 0.3 (0.15-1.2) mg/dL AST 21 (0-40) U/L ALT 16 (0-41) U/L Alkaline Phosphata se 137 H (40-130) IU/L Lactate Dehydrogen ase 165 (135-225) U/L Total Protein 7.3 (6.6-8.7) g/dL Albumin 3.8 (3.5-5.2) g/dL Globulin 3.5 (1.3-4.6) g/dL Urine Color (Yellow) Urine Appearance (CLEAR) Urine pH (5-7) Ur Specific Gravit y (1.005-1.030) Urine Protein (Negative) Urine Glucose (UA) (Normal) Urine Ketones (Negative) Urine Blood (Negative) Urine Nitrate (Negative) Urine Bilirubin (Negative) Urine Urobilinogen (Negative) mg/dL Ur Leukocyte Destiny ase (Negative) Urine RBC (0-2) /hpf Urine WBC (0-5) /hpf Ur Squamous Epith Cells (0-5) /hpf Amorphous Sediment Urine Bacteria (NONE) /hpf Urine Mucus /hpf 04/20/20 04/20/20 04/20/20 Range/Units 12:28 12:42 13:08 WBC (4.0-10.0) 10^3/ uL RBC (4.1-5.3) 10^6/u L Hgb (11.7-16.6) g/dL Hct (42.0-52.0) % MCV (80-94) fL MCH (28.0-34.0) pg MCHC (30.0-36.0) g/dL RDW (12.1-15.1) % Plt Count (130-400) 10^3/c mm MPV (7.4-10.4) fL Neut % (Auto) % Lymph % (Auto) % [place] % (Auto) % Eos % (Auto) % Baso % (Auto) % Neut # (Auto) (1.8-7.7) 10^3/u L Lymph # (Auto) (0.8-4.8) 10^3/u L [place] # (Auto) (0.2-0.9) 10^3/u L Eos # (Auto) (0.0-0.8) 10^3/u L Baso # (Auto) (0.0-0.1) 10^3/u L Nucleated RBC % (a uto) % Nucleated RBCs # /100WBC D-Dimer (0-0.59) ug/mIFE U Specimen Type Arterial Sample Site Radial, right ABG pH 7.38 (7.35-7.45) ABG pCO2 37.4 (35-45) mmHg ABG pO2 101.0 H (80.0-100.0) mmH g ABG HCO3 22.3 (22-26) mmol/L ABG O2 Saturation 98.5 ABG Base Excess -2.5 L (-2.0-2.0) mmol/ L Stephane Test Pos A-a O2 Gradient 6.9 (5-10) mmHg Hematocrit 36.2 L (42-52) % Hgb O2 Saturation 96.9 (95-100) % Carboxyhemoglobin 0.9 (0.4-20.1) %THgb Methemoglobin 0.8 (0.4-1.5) % Total Hemoglobin 11.8 L (14-18) g/dL Ionized Calcium 1.1 (1.1-1.4) mmol/L O2 Delivery Device Nc O2 Liters/Min 2.0 % FiO2 28.0 % Branch Operation Evaluation Manager ID Monro Sodium 139.0 (136-145) mmol/L Potassium 4.6 (3.5-5.1) mmol/L Chloride (98-107) mmol/L Carbon Dioxide (22-29) mmol/L Anion Gap (5-19) BUN (6-20) mg/dL Creatinine (0.7-1.2) mg/dL GFR Calculation (90-130) mL/min Glucose 206.0 H (65-115) mg/dL Calculated Osmolal ity (285-295) mOsm/k g Lactate 1.0 (0.5-2.2) mmol/L Calcium (8.5-10.5) mg/dL Ferritin (30-400) ng/mL Total Bilirubin (0.15-1.2) mg/dL AST (0-40) U/L ALT (0-41) U/L Alkaline Phosphata se (40-130) IU/L Lactate Dehydrogen ase (135-225) U/L Total Protein (6.6-8.7) g/dL Albumin (3.5-5.2) g/dL Globulin (1.3-4.6) g/dL Urine Color Dark yellow (Yellow) Urine Appearance Clear (CLEAR) Urine pH 5 (5-7) Ur Specific Gravit y 1.020 (1.005-1.030) Urine Protein 2+ H (Negative) Urine Glucose (UA) 1+ (Normal) Urine Ketones 1+ H (Negative) Urine Blood Neg (Negative) Urine Nitrate Negative (Negative) Urine Bilirubin 1+ H (Negative) Urine Urobilinogen 1 H (Negative) mg/dL Ur Leukocyte Destiny ase Negative (Negative) Urine RBC None (0-2) /hpf Urine WBC 0-4 H (0-5) /hpf Ur Squamous Epith Cells 0-4 H (0-5) /hpf Amorphous Sediment Not Reportable Urine Bacteria Trace (NONE) /hpf Urine Mucus 1+ /hpf Discharge Plan Discharge Patient Disposition: Home Clinical Impression: SOB (shortness of breath) on exertion Pneumonia Qualifiers: Pneumonia type: due to unspecified organism Laterality: left Lung location: lower lobe of lung Qualified Code(s): J18.9 - Pneumonia, unspecified organism Condition: Stable Prescriptions: New doxycycline hyclate 100 mg capsule 100 mg PO BID 10 Days Qty: 20 RF: 0 albuterol sulfate 90 mcg/actuation aerosol powdr breath activated 2 inh INHALATION Q6H PRN (Reason: shortness of breath or wheezing) Qty: 1 RF: 0 prednisone 20 mg tablet 20 mg PO TID 5 Days Qty: 15 RF: 0 No Action mupirocin 2 % ointment 1 applic TOPICAL BID Qty: 30 RF: 0 furosemide 40 mg tablet 40 mg PO DAILY RF: 0 atorvastatin 40 mg tablet 40 mg PO DAILY RF: 0 citalopram 20 mg tablet 20 mg PO DAILY RF: 0 metoprolol tartrate 25 mg tablet 25 mg PO BID RF: 0 tamsulosin 0.4 mg capsule 0.4 mg PO DAILY RF: 0 ibuprofen 200 mg Tablet 400 mg PO DAILY PRN (Reason: Pain) RF: 0 metformin 500 mg tablet 500 mg PO BID RF: 0 cetirizine 10 mg tablet 10 mg PO DAILY RF: 0 Vitamin D2 1,250 mcg (50,000 unit) capsule See Rx Instructions .ROUTE .COMPLEX RF: 0 Ventolin HFA 90 mcg/actuation HFA aerosol inhaler 2 puff INHALATION Q4H PRN (Reason: Shortness Of Breath) RF: 0 fluticasone propionate 50 mcg/actuation spray,suspension 1 spray INTRANASAL DAILY RF: 0 metoclopramide HCl 10 mg tablet 10 mg PO Q6H RF: 0 Novolog Flexpen U-100 Insulin 100 unit/mL (3 mL) insulin pen See Rx Instructions .ROUTE .COMPLEX RF: 0 Lantus Solostar U-100 Insulin 100 unit/mL (3 mL) insulin pen 60 unit SUBCUT DAILY RF: 0 Eliquis 5 mg tablet 5 mg PO BID RF: 0 Bevespi Aerosphere 9-4.8 mcg HFA aerosol inhaler 2 puff INHALATION BID RF: 0 Discharge Orders: Discharge Order (Routine); Ordered 04/20/20 Ordered By: Leo Long Referrals: Catherine Barcenas UTILITIES MANAGER-C [Primary Care Provider] - Discharge Diet: Regular Discharge Activity: Increase activity as tolerated, Limit activity as instructed and Oxygen as instructed Patient Instructions: Using Oxygen at Home (ED), Pneumonia (ED) Activity Restrictions/Additional Instructions: Follow-up with medical provider as directed in 5-7 days. Take medications as prescribed. Continue self quarantine for the total of 14 days due to positive COVID-19 test. Return to the ER or your medical provider if condition worsens. Please read and understand discharge instructions. If any questions, please ask. Discharge Date/Time: 04/20/20 22:47 Sign Out Sign Out Data: Patient Sign Out occurred on 04/20/20 at 17:18. Patient's care was discussed, and care was transferred from to SIVA Cabral. Coding Level of Care Code ED Personnel Supervisor for Chg Fwd Exam Comprehensive Documented by User: SIVA Cabral 04/21/20 02:49 HPI - SOB/Dyspnea General: Chief Complaint: Upper Respiratory Infection Stated Complaint: covid+, coughing Time Seen by Provider: 04/20/20 17:18 [facility] ED PFSH: Medical History Acute cystitis without hematuria Acute urinary retention Hypertension Insulin dependent diabetes mellitus Surgical History H/O amputation all toes S/P cholecystectomy S/P debridement thigh and foot Family History Father , at age 60 Myocardial infarction (lateral wall) Mother , at age 73 Diabetes Social History Smoking and tobacco status: never smoked Alcohol intake: never Substance/Drug Use: never Marital status: Single Current occupational status: disabled History of recent travel: No Physical Exam Const: COMMON NORMALS: patient oriented x3 HENMT: COMMON NORMALS: normocephalic HEAD & SCALP: normocephalic MOUTH: Normal oral and palatal mucosa present THROAT: posterior oropharynx normal and uvula midline Neck/C-Spine: COMMON NORMALS: supple GENERAL: Yes normal visual inspection Resp: COMMON NORMALS: normal respiratory effort, No retractions and No use of accessory muscles EFFORT & INSPECTION: Yes able to speak in complete sentences AUSCULTATION: diminished lung sounds on the left in the lower lung chavis Cardio: COMMON NORMALS: regular rate, regular rhythm, S1 normal heart sound present, S2 normal heart sound present, No gallops present (Cardio), No clicks present (Cardio), No murmurs present (Cardio) and Peripheral pulses 2+ throughout RATE: regular rate RHYTHM: regular rhythm HEART SOUNDS: S1 normal heart sound present and S2 normal heart sound present PERIPHERAL PULSES: Peripheral pulses 2+ throughout GI: COMMON NORMALS: Normal to inspection, nondistended, normoactive bowel sounds present, Soft to palpation, non-tender and no masses PALPATION: Yes Soft to palpation : COMMON NORMALS: Yes no CVA tenderness BLADDER/KIDNEY EXAM: Yes no CVA tenderness Back/Pelvis: COMMON NORMALS: no CVA tenderness Neuro: COMMON NORMALS: patient oriented x3 and moves all extremities Course Vital Signs: Vital signs: Vital Signs Temperature 98.3 F 04/20/20 10:38 Pulse Rate 87 04/20/20 16:42 Respiratory Rate 17 04/20/20 11:20 Blood Pressure 145/79 04/20/20 16:42 Pulse Oximetry 85 L 04/20/20 17:26 MDM - SOB/Dyspnea MDM Narrative: Medical decision making narrative: Patient care was transferred over to me at 5 PM by Hermelinda Hahn. She told me that patient is going home but they are waiting on home O2 evaluation by our respiratory therapist. She told me that once respiratory does not home O2 evaluation he can be discharged home on some doxycycline and albuterol and possibly O2 if patient qualifies. Respiratory performed a home O2 evaluation on patient. Patient qualified for 3 L of oxygen. I wrote a prescription and home health is coming here to the ED to discharge patient with oxygen for home. Return to ED precautions given. Patient understood and agreed with plan. Lab Data: Attestation: I reviewed the patient's lab results. Labs: Lab Results 04/20/20 04/20/20 04/20/20 Range/Units 10:52 10:52 10:52 WBC 6.3 (4.0-10.0) 10^3/ uL RBC 4.34 (4.1-5.3) 10^6/u L Hgb 12.4 (11.7-16.6) g/dL Hct 39.0 L (42.0-52.0) % MCV 89.9 (80-94) fL MCH 28.6 (28.0-34.0) pg MCHC 31.8 (30.0-36.0) g/dL RDW 14.0 (12.1-15.1) % Plt Count 251 (130-400) 10^3/c mm MPV 9.2 (7.4-10.4) fL Neut % (Auto) 72.7 % Lymph % (Auto) 15.9 % [place] % (Auto) 7.8 % Eos % (Auto) 2.5 % Baso % (Auto) 0.3 % Neut # (Auto) 4.56 (1.8-7.7) 10^3/u L Lymph # (Auto) 1.0 (0.8-4.8) 10^3/u L [place] # (Auto) 0.5 (0.2-0.9) 10^3/u L Eos # (Auto) 0.2 (0.0-0.8) 10^3/u L Baso # (Auto) 0.0 (0.0-0.1) 10^3/u L Nucleated RBC % (a uto) 0 % Nucleated RBCs # 0.0 /100WBC D-Dimer 0.57 (0-0.59) ug/mIFE U Specimen Type Sample Site ABG pH (7.35-7.45) ABG pCO2 (35-45) mmHg ABG pO2 (80.0-100.0) mmH g ABG HCO3 (22-26) mmol/L ABG O2 Saturation ABG Base Excess (-2.0-2.0) mmol/ L Stephane Test A-a O2 Gradient (5-10) mmHg Hematocrit (42-52) % Hgb O2 Saturation (95-100) % Carboxyhemoglobin (0.4-20.1) %THgb Methemoglobin (0.4-1.5) % Total Hemoglobin (14-18) g/dL Ionized Calcium (1.1-1.4) mmol/L O2 Delivery Device O2 Liters/Min % FiO2 % Branch Operation Evaluation Manager ID Sodium 135 L (136-145) mmol/L Potassium 4.9 (3.5-5.1) mmol/L Chloride 102 (98-107) mmol/L Carbon Dioxide 24 (22-29) mmol/L Anion Gap 13.9 (5-19) BUN 21 H (6-20) mg/dL Creatinine 0.9 (0.7-1.2) mg/dL GFR Calculation 87.6 L (90-130) mL/min Glucose 208 H (65-115) mg/dL Calculated Osmolal ity 289 (285-295) mOsm/k g Lactate (0.5-2.2) mmol/L Calcium 8.5 (8.5-10.5) mg/dL Ferritin 228 (30-400) ng/mL Total Bilirubin 0.3 (0.15-1.2) mg/dL AST 21 (0-40) U/L ALT 16 (0-41) U/L Alkaline Phosphata se 137 H (40-130) IU/L Lactate Dehydrogen ase 165 (135-225) U/L Total Protein 7.3 (6.6-8.7) g/dL Albumin 3.8 (3.5-5.2) g/dL Globulin 3.5 (1.3-4.6) g/dL Urine Color (Yellow) Urine Appearance (CLEAR) Urine pH (5-7) Ur Specific Gravit y (1.005-1.030) Urine Protein (Negative) Urine Glucose (UA) (Normal) Urine Ketones (Negative) Urine Blood (Negative) Urine Nitrate (Negative) Urine Bilirubin (Negative) Urine Urobilinogen (Negative) mg/dL Ur Leukocyte Destiny ase (Negative) Urine RBC (0-2) /hpf Urine WBC (0-5) /hpf Ur Squamous Epith Cells (0-5) /hpf Amorphous Sediment Urine Bacteria (NONE) /hpf Urine Mucus /hpf 04/20/20 04/20/20 04/20/20 Range/Units 12:28 12:42 13:08 WBC (4.0-10.0) 10^3/ uL RBC (4.1-5.3) 10^6/u L Hgb (11.7-16.6) g/dL Hct (42.0-52.0) % MCV (80-94) fL MCH (28.0-34.0) pg MCHC (30.0-36.0) g/dL RDW (12.1-15.1) % Plt Count (130-400) 10^3/c mm MPV (7.4-10.4) fL Neut % (Auto) % Lymph % (Auto) % [place] % (Auto) % Eos % (Auto) % Baso % (Auto) % Neut # (Auto) (1.8-7.7) 10^3/u L Lymph # (Auto) (0.8-4.8) 10^3/u L [place] # (Auto) (0.2-0.9) 10^3/u L Eos # (Auto) (0.0-0.8) 10^3/u L Baso # (Auto) (0.0-0.1) 10^3/u L Nucleated RBC % (a uto) % Nucleated RBCs # /100WBC D-Dimer (0-0.59) ug/mIFE U Specimen Type Arterial Sample Site Radial, right ABG pH 7.38 (7.35-7.45) ABG pCO2 37.4 (35-45) mmHg ABG pO2 101.0 H (80.0-100.0) mmH g ABG HCO3 22.3 (22-26) mmol/L ABG O2 Saturation 98.5 ABG Base Excess -2.5 L (-2.0-2.0) mmol/ L Stephane Test Pos A-a O2 Gradient 6.9 (5-10) mmHg Hematocrit 36.2 L (42-52) % Hgb O2 Saturation 96.9 (95-100) % Carboxyhemoglobin 0.9 (0.4-20.1) %THgb Methemoglobin 0.8 (0.4-1.5) % Total Hemoglobin 11.8 L (14-18) g/dL Ionized Calcium 1.1 (1.1-1.4) mmol/L O2 Delivery Device Nc O2 Liters/Min 2.0 % FiO2 28.0 % Branch Operation Evaluation Manager ID Monro Sodium 139.0 (136-145) mmol/L Potassium 4.6 (3.5-5.1) mmol/L Chloride (98-107) mmol/L Carbon Dioxide (22-29) mmol/L Anion Gap (5-19) BUN (6-20) mg/dL Creatinine (0.7-1.2) mg/dL GFR Calculation (90-130) mL/min Glucose 206.0 H (65-115) mg/dL Calculated Osmolal ity (285-295) mOsm/k g Lactate 1.0 (0.5-2.2) mmol/L Calcium (8.5-10.5) mg/dL Ferritin (30-400) ng/mL Total Bilirubin (0.15-1.2) mg/dL AST (0-40) U/L ALT (0-41) U/L Alkaline Phosphata se (40-130) IU/L Lactate Dehydrogen ase (135-225) U/L Total Protein (6.6-8.7) g/dL Albumin (3.5-5.2) g/dL Globulin (1.3-4.6) g/dL Urine Color Dark yellow (Yellow) Urine Appearance Clear (CLEAR) Urine pH 5 (5-7) Ur Specific Gravit y 1.020 (1.005-1.030) Urine Protein 2+ H (Negative) Urine Glucose (UA) 1+ (Normal) Urine Ketones 1+ H (Negative) Urine Blood Neg (Negative) Urine Nitrate Negative (Negative) Urine Bilirubin 1+ H (Negative) Urine Urobilinogen 1 H (Negative) mg/dL Ur Leukocyte Destiny ase Negative (Negative) Urine RBC None (0-2) /hpf Urine WBC 0-4 H (0-5) /hpf Ur Squamous Epith Cells 0-4 H (0-5) /hpf Amorphous Sediment Not Reportable Urine Bacteria Trace (NONE) /hpf Urine Mucus 1+ /hpf Imaging Data^: CXR: Attestation: I personally reviewed and interpreted this imaging study as follows: Radiologist's impression: [address] [place] [address] XRay Report Signed Patient: Leo Bond Unit #: [id number] : 1965 Age/Sex: 54 / M ADM Date: 04/20/20 Loc: ER Room/Bed: Attending Dr: Ordering Provider/Ordering MD: Hermelinda Goss NP Date of Service: 04/20/20 Procedure(s): XR chest 1V portable [id number] Accession Number(s): [id number] Report Number: [id number] WS: [id number] Portable AP upright chest, 04/20/2020 Clinical Data: covid - cough Comparison: None. Findings: There is a patchy opacity in the left lower lobe which may represent minimal pneumonia. The right lung is clear. No nodules, masses or effusions are seen. The heart is normal. The pulmonary vascularity is not increased. No pneumothorax is seen. XR/XR chest 1V portable [id number] Impression: Patchy opacity in the left lower lobe which could represent pneumonia and recommend repeat chest x- ray in one to 2 days. Dictated By: Patricia Mckeon MD Signed By: Patricia Mckeon MD Signed Date/Time: 04/20/20 1223 DD/ 1222 Discharge Plan Discharge Patient Disposition: Home Clinical Impression: SOB (shortness of breath) on exertion Pneumonia Qualifiers: Pneumonia type: due to unspecified organism Laterality: left Lung location: lower lobe of lung Qualified Code(s): J18.9 - Pneumonia, unspecified organism Condition: Stable Prescriptions: New doxycycline hyclate 100 mg capsule 100 mg PO BID 10 Days Qty: 20 RF: 0 albuterol sulfate 90 mcg/actuation aerosol powdr breath activated 2 inh INHALATION Q6H PRN (Reason: shortness of breath or wheezing) Qty: 1 RF: 0 prednisone 20 mg tablet 20 mg PO TID 5 Days Qty: 15 RF: 0 No Action mupirocin 2 % ointment 1 applic TOPICAL BID Qty: 30 RF: 0 furosemide 40 mg tablet 40 mg PO DAILY RF: 0 atorvastatin 40 mg tablet 40 mg PO DAILY RF: 0 citalopram 20 mg tablet 20 mg PO DAILY RF: 0 metoprolol tartrate 25 mg tablet 25 mg PO BID RF: 0 tamsulosin 0.4 mg capsule 0.4 mg PO DAILY RF: 0 ibuprofen 200 mg Tablet 400 mg PO DAILY PRN (Reason: Pain) RF: 0 metformin 500 mg tablet 500 mg PO BID RF: 0 cetirizine 10 mg tablet 10 mg PO DAILY RF: 0 Vitamin D2 1,250 mcg (50,000 unit) capsule See Rx Instructions .ROUTE .COMPLEX RF: 0 Ventolin HFA 90 mcg/actuation HFA aerosol inhaler 2 puff INHALATION Q4H PRN (Reason: Shortness Of Breath) RF: 0 fluticasone propionate 50 mcg/actuation spray,suspension 1 spray INTRANASAL DAILY RF: 0 metoclopramide HCl 10 mg tablet 10 mg PO Q6H RF: 0 Novolog Flexpen U-100 Insulin 100 unit/mL (3 mL) insulin pen See Rx Instructions .ROUTE .COMPLEX RF: 0 Lantus Solostar U-100 Insulin 100 unit/mL (3 mL) insulin pen 60 unit SUBCUT DAILY RF: 0 Eliquis 5 mg tablet 5 mg PO BID RF: 0 Bevespi Aerosphere 9-4.8 mcg HFA aerosol inhaler 2 puff INHALATION BID RF: 0 Discharge Orders: Discharge Order (Routine); Ordered 04/20/20 Ordered By: Leo Long Referrals: Catherine Barcenas FNP-C [Primary Care Provider] - Discharge Diet: Regular Discharge Activity: Increase activity as tolerated, Limit activity as instructed and Oxygen as instructed Patient Instructions: Using Oxygen at Home (ED), Pneumonia (ED) Activity Restrictions/Additional Instructions: Follow-up with medical provider as directed in 5-7 days. Take medications as prescribed. Continue self quarantine for the total of 14 days due to positive COVID-19 test. Return to the ER or your medical provider if condition worsens. Please read and understand discharge instructions. If any questions, please ask. Discharge Date/Time: 04/20/20 22:47 Sign Out Sign Out Data: Patient Sign Out occurred on 04/20/20 at 17:18. Patient's care was discussed, and care was transferred from to SIVA Cabral. Coding Level of Care Code ED Personnel Supervisor for Madelyn Fwdiya Exam Comprehensive
--- NOTE | 2020-04-20 11:04 | PC.NURSE ---
portable xray at bedside
[2020-04-20 11:05] LABS: Basophils % 0.3 %; Eosinophils # 0.2 10^3/uL (0.0-0.8); Eosinophils % 2.5 %; Hemoglobin 12.4 g/dL (11.7-16.6); Lymphocytes % 15.9 %; Mean Corpuscular HGB Conc 31.8 g/dL (30.0-36.0); Mean Corpuscular Hemoglobin 28.6 pg (28.0-34.0); Mean Corpuscular Volume 89.9 fL (80-94); Mean Platelet Volume 9.2 fL (7.4-10.4); Monocytes # 0.5 10^3/uL (0.2-0.9); Monocytes % 7.8 %; Neutrophils # 4.56 10^3/uL (1.8-7.7); Neutrophils % 72.7 %; Nucleated Red Blood Cells % 0 %; Platelet Count 251 10^3/cmm (130-400); Red Blood Count 4.34 10^6/uL (4.1-5.3); White Blood Count 6.3 10^3/uL (4.0-10.0)
[2020-04-20] MEDS: dexamethasone 4 mg/mL INJ 6 MG IVP (11:08)
[2020-04-20] MEDS: sodium chloride 0.9% 1,000 ML 999 ML IV (11:09)
[2020-04-20] MEDS: albuterol 8 gm MDI 2 PUFF INHALATION (11:20)
[2020-04-20 11:21] LABS: Alanine Aminotransferase 16 U/L (0-41); Albumin Level 3.8 g/dL (3.5-5.2); Alkaline Phosphatase 137 IU/L (40-130); Anion Gap 13.9 (5-19); Aspartate Amino Transferase 21 U/L (0-40); Blood Urea Nitrogen 21 mg/dL (6-20); Calcium 8.5 mg/dL (8.5-10.5); Carbon Dioxide 24 mmol/L (22-29); Chloride 102 mmol/L (98-107); D Dimer 0.57 ug/mIFEU (0-0.59); Ferritin 228 ng/mL (30-400); Globulin 3.5 g/dL (1.3-4.6); Glomerular Filtration Rate 87.6 mL/min (90-130); Glucose 208 mg/dL (65-115); Lactate Dehydrogenase 165 U/L (135-225); Osmolality Calculated 289 mOsm/kg (285-295); Potassium 4.9 mmol/L (3.5-5.1); Sodium 135 mmol/L (136-145); Total Bilirubin 0.3 mg/dL (0.15-1.2); Total Protein 7.3 g/dL (6.6-8.7)
--- NOTE | 2020-04-20 11:21 | PC.NURSE ---
pt on room air and maintaining saturation at 89-91% while remaining still. pt turned over in the bed and saturation dropped to 84%. pt placed on 2L via NC. ED provider notified.
[2020-04-20 12:46] LABS: Bilirubin Urine 1+ (Negative); Blood Urine Neg (Negative); Glucose Urine UA 1+ (Normal); Ketones Urine 1+ (Negative); Nitrate Urine Negative (Negative); Protein Urine 2+ (Negative); Urine Appearance Clear (CLEAR); Urine Color Dark Yellow (Yellow); Urobilinogen Urine 1 mg/dL (Negative); pH Urine 5 (5-7)
[2020-04-20 12:47] LABS: Add Urine Microscopic? YES; Leukocyte Esterase Urine Negative (Negative)
[2020-04-20 12:55] LABS: ABG PCO2 37.4 mmHg (35-45); ABG PH Result 7.38 (7.35-7.45); Alveolar-Arterial Oxygen Gradi 6.9 mmHg (5-10); Arterial Blood Gas Hematocrit 36.2 % (42-52); Base Excess ABG -2.5 mmol/L (-2.0-2.0); Blood Gas Allen Test Pos; Blood Gas Operator Identificat MONRO; Blood Gas Sample Site Radial, right; Blood Gas Sample Type Arterial; Carboxyhemoglobin 0.9 %THgb (0.4-20.1); HCO3 ABG 22.3 mmol/L (22-26); HGB O2 Sat 96.9 % (95-100); Ionized Calcium Level - ABG 1.1 mmol/L (1.1-1.4); Methemoglobin 0.8 % (0.4-1.5); Oxygen Device NC; Oxygen Saturation ABG 98.5; Potassium Level - ABG 4.6 mmol/L (3.5-5.0); Total Hemoglobin 11.8 g/dL (14-18)
[2020-04-20 12:55] LABS: Add Urine Culture? No; Bacteria Urine TRACE /hpf; Mucus Urine 1+ /hpf; Squamous Epithelial Cell Urine 0-4 /hpf (0-5); WBC Urine 0-4 /hpf (0-5)
[2020-04-20] MEDS: cefTRIAXone 1,000 MG in sodium chloride 0.9% (plus) 50 ML 100 MG IV (16:33)
[2020-04-20] MEDS: azithromycin 500 MG in sodium chloride 0.9% 250 ML 250 MG IV (16:42)
== END 2020-04-20 22:47 | disposition home or self-care (01) ==
PROVIDERS: Registered Nurse; Emergency Provider Physician Assistant; PCP Nurse Practitioner Family
DX: J18.9 Pneumonia, unspecified organism (principal); R06.02 Shortness of breath; Z79.4 Long term (current) use of insulin; Z79.01 Long term (current) use of anticoagulants; I10 Essential (primary) hypertension; E11.9 Type 2 diabetes mellitus without complications
CPT/HCPCS: 12345; 36600; 71045; 80051; 80053; 81001; 82728; 82810; 83605; 83615; 83986; 85025; 85378; 87040; 87205; 94640; 96365; 96375; 99284; J0456; J0696; J1100; J3535; J7030; J7050

== ENCOUNTER → 2020-07-16 14:54 | Outpatient (BNVA) | payer MEDICAID, SELFPAY | PROVIDERS: PCP Nurse Practitioner Family; Visit Provider Podiatrist Foot & Ankle Surgery | DX: Z47.89 Encounter for other orthopedic aftercare (principal); Z89.431 Acquired absence of right foot | CPT/HCPCS: 73630 ==

== ENCOUNTER → 2020-09-10 15:19 | Outpatient (BNVA) | payer MEDICAID, SELFPAY | PROVIDERS: PCP Nurse Practitioner Family; Visit Provider Podiatrist Foot & Ankle Surgery | DX: Z89.431 Acquired absence of right foot (principal); L97.512 Non-pressure chronic ulcer of other part of right foot with fat layer exposed; Z89.422 Acquired absence of other left toe(s) | CPT/HCPCS: 73630 ==

== ENCOUNTER → 2021-01-25 14:05 | Outpatient (BNVA) | payer MEDICAID, SELFPAY | PROVIDERS: PCP Nurse Practitioner Family; Visit Provider Podiatrist Foot & Ankle Surgery | DX: L97.512 Non-pressure chronic ulcer of other part of right foot with fat layer exposed (principal); Z89.431 Acquired absence of right foot; Z89.432 Acquired absence of left foot; E11.42 Type 2 diabetes mellitus with diabetic polyneuropathy; L84 Corns and callosities; L97.522 Non-pressure chronic ulcer of other part of left foot with fat layer exposed | CPT/HCPCS: 73630 ==

== ENCOUNTER 2021-04-11 14:21 | Outpatient (CLI) | payer MEDICAID, SELFPAY | END 2021-04-11 14:22 | disposition home or self-care (01) | LOC: WOUND 14:22 | PROVIDERS: PCP Nurse Practitioner Family; Visit Provider Emergency Medicine | DX: E11.621 Type 2 diabetes mellitus with foot ulcer (principal); L97.521 Non-pressure chronic ulcer of other part of left foot limited to breakdown of skin; L97.512 Non-pressure chronic ulcer of other part of right foot with fat layer exposed | CPT/HCPCS: 11042; 87070; 87077; 87176; 87186; 87205; 97597; G0463 ==

== ENCOUNTER 2021-04-18 12:54 | Outpatient (CLI) | payer MEDICAID, SELFPAY | END 2021-04-18 12:55 | disposition home or self-care (01) | LOC: WOUND 12:55 | PROVIDERS: PCP Nurse Practitioner Family; Visit Provider Nurse Practitioner Family | DX: E11.621 Type 2 diabetes mellitus with foot ulcer (principal); L97.521 Non-pressure chronic ulcer of other part of left foot limited to breakdown of skin; L97.512 Non-pressure chronic ulcer of other part of right foot with fat layer exposed | CPT/HCPCS: 11042 ==

== ENCOUNTER → 2021-04-22 13:57 | Outpatient (BNVA) | payer MEDICAID, SELFPAY | PROVIDERS: PCP Nurse Practitioner Family; Referring Provider Podiatrist Foot & Ankle Surgery; Visit Provider Internal Medicine | DX: E11.42 Type 2 diabetes mellitus with diabetic polyneuropathy (principal); E11.621 Type 2 diabetes mellitus with foot ulcer; Z89.431 Acquired absence of right foot; Z79.4 Long term (current) use of insulin | CPT/HCPCS: 99204 ==

== ENCOUNTER 2021-04-25 10:56 | Outpatient (CLI) | payer MEDICAID, SELFPAY | END 2021-04-25 10:57 | disposition home or self-care (01) | LOC: WOUND 10:57 | PROVIDERS: PCP Nurse Practitioner Family; Visit Provider Nurse Practitioner Family | DX: E11.621 Type 2 diabetes mellitus with foot ulcer (principal); L97.522 Non-pressure chronic ulcer of other part of left foot with fat layer exposed; L97.511 Non-pressure chronic ulcer of other part of right foot limited to breakdown of skin | CPT/HCPCS: 11042; A6021 ==

== ENCOUNTER 2021-05-02 13:05 | Outpatient (CLI) | payer MEDICAID, SELFPAY | END 2021-05-02 13:06 | disposition home or self-care (01) | LOC: WOUND 13:05 | PROVIDERS: PCP Nurse Practitioner Family; Visit Provider Emergency Medicine | DX: E11.621 Type 2 diabetes mellitus with foot ulcer (principal); L97.522 Non-pressure chronic ulcer of other part of left foot with fat layer exposed; L97.512 Non-pressure chronic ulcer of other part of right foot with fat layer exposed | CPT/HCPCS: 11042; A6252 ==

== ENCOUNTER 2021-05-10 13:06 | Outpatient (CLI) | payer MEDICAID, SELFPAY | END 2021-05-10 13:07 | disposition home or self-care (01) | LOC: WOUND 13:06 | PROVIDERS: PCP Nurse Practitioner Family; Visit Provider Surgery | DX: E11.621 Type 2 diabetes mellitus with foot ulcer (principal); L97.512 Non-pressure chronic ulcer of other part of right foot with fat layer exposed; L97.522 Non-pressure chronic ulcer of other part of left foot with fat layer exposed | CPT/HCPCS: 11042 ==

== ENCOUNTER 2021-05-13 14:55 | Outpatient (CLI) | payer MEDICAID, SELFPAY | END 2021-05-13 14:56 | disposition home or self-care (01) | LOC: WOUND 14:56 | PROVIDERS: PCP Nurse Practitioner Family; Visit Provider Nurse Practitioner Family | DX: E11.621 Type 2 diabetes mellitus with foot ulcer (principal); L97.519 Non-pressure chronic ulcer of other part of right foot with unspecified severity; L97.529 Non-pressure chronic ulcer of other part of left foot with unspecified severity | CPT/HCPCS: G0463 ==

== ENCOUNTER 2021-05-20 15:08 | Outpatient (CLI) | payer MEDICAID, SELFPAY | END 2021-05-20 15:09 | disposition home or self-care (01) | LOC: WOUND 15:09 | PROVIDERS: PCP Nurse Practitioner Family; Visit Provider Emergency Medicine | DX: E11.621 Type 2 diabetes mellitus with foot ulcer (principal); L97.512 Non-pressure chronic ulcer of other part of right foot with fat layer exposed; L97.522 Non-pressure chronic ulcer of other part of left foot with fat layer exposed; I10 Essential (primary) hypertension | CPT/HCPCS: 11042; A6252 ==

== ENCOUNTER 2021-05-27 15:02 | Outpatient (CLI) | payer MEDICAID, SELFPAY | END 2021-05-27 15:03 | disposition home or self-care (01) | LOC: WOUND 15:03 | PROVIDERS: PCP Nurse Practitioner Family; Visit Provider Nurse Practitioner Family | DX: E11.621 Type 2 diabetes mellitus with foot ulcer (principal); L97.522 Non-pressure chronic ulcer of other part of left foot with fat layer exposed; L97.512 Non-pressure chronic ulcer of other part of right foot with fat layer exposed | CPT/HCPCS: 11042 ==

== ENCOUNTER 2021-06-03 15:10 | Outpatient (CLI) | payer MEDICAID, SELFPAY | END 2021-06-03 15:11 | disposition home or self-care (01) | LOC: WOUND 15:11 | PROVIDERS: PCP Nurse Practitioner Family; Visit Provider Emergency Medicine | DX: E11.621 Type 2 diabetes mellitus with foot ulcer (principal); L97.522 Non-pressure chronic ulcer of other part of left foot with fat layer exposed; L97.512 Non-pressure chronic ulcer of other part of right foot with fat layer exposed; I10 Essential (primary) hypertension; Z89.421 Acquired absence of other right toe(s) | CPT/HCPCS: 11042; 87070; 87077; 87176; 87186; 87205; A6252 ==

== ENCOUNTER 2021-06-10 14:38 | Outpatient (CLI) | payer MEDICAID, SELFPAY | END 2021-06-10 14:39 | disposition home or self-care (01) | LOC: WOUND 14:38 | PROVIDERS: PCP Nurse Practitioner Family; Visit Provider Emergency Medicine | DX: E11.621 Type 2 diabetes mellitus with foot ulcer (principal); L97.522 Non-pressure chronic ulcer of other part of left foot with fat layer exposed; L97.512 Non-pressure chronic ulcer of other part of right foot with fat layer exposed | CPT/HCPCS: 11042 ==

== ENCOUNTER 2021-06-17 15:27 | Outpatient (CLI) | payer MEDICAID, SELFPAY | END 2021-06-17 15:28 | disposition home or self-care (01) | LOC: WOUND 15:28 | PROVIDERS: PCP Nurse Practitioner Family; Visit Provider Emergency Medicine | DX: E11.621 Type 2 diabetes mellitus with foot ulcer (principal); L97.522 Non-pressure chronic ulcer of other part of left foot with fat layer exposed; L97.512 Non-pressure chronic ulcer of other part of right foot with fat layer exposed; I10 Essential (primary) hypertension | CPT/HCPCS: 11042 ==

== ENCOUNTER 2021-06-24 14:34 | Outpatient (CLI) | payer MEDICAID, SELFPAY | END 2021-06-24 14:35 | disposition home or self-care (01) | LOC: WOUND 14:34 | PROVIDERS: PCP Nurse Practitioner Family; Visit Provider Nurse Practitioner Family | DX: I96 Gangrene, not elsewhere classified (principal); E11.621 Type 2 diabetes mellitus with foot ulcer; L97.521 Non-pressure chronic ulcer of other part of left foot limited to breakdown of skin; L97.512 Non-pressure chronic ulcer of other part of right foot with fat layer exposed | CPT/HCPCS: 11042 ==

== ENCOUNTER 2021-07-01 14:02 | Outpatient (CLI) | payer MEDICAID, SELFPAY ==
--- NOTE | 2021-07-01 14:25 | XR_ITS ---
WS: [id number] LEFT FOOT: 3 VIEW(S) TECHNIQUE: AP, oblique and lateral. HISTORY: TYPE II DIABETES MELLITUS WITH FOOT ULCERS COMPARISON: 01/25/2021 Prior amputations of all 5 toes. Very minimal bony fragment of the proximal third toe remaining. The remaining toes are completely removed. Mild soft tissue edema along the amputation sites. The cortex overlying the bone is intact. No air in the soft tissues. Normal tarsal/metatarsal alignment. XR/XR foot LT min 3V* [id number] IMPRESSION: 1. Status post amputations of all 5 toes. 2. No bone destruction or osteolysis amputation site.
--- NOTE | 2021-07-01 14:25 | XR_ITS ---
WS: [id number] RIGHT FOOT: 3 VIEW(S) TECHNIQUE: AP, oblique and lateral. HISTORY: TYPE II DIABETES MELLITUS WITH FOOT ULCERS COMPARISON: 01/25/2021 Amputation of all 5 toes and greater than 50% of the metatarsals. Cortex along the amputation sites intact. No osteolysis or osteomyelitis appreciated radiographically . XR/XR foot RT min 3V* [id number] IMPRESSION: Amputation sites are stable. No osteolysis or radiographic evidence for osteomy elitis.
== END 2021-07-01 14:03 | disposition home or self-care (01) ==
PROVIDERS: PCP Nurse Practitioner Family; Visit Provider Emergency Medicine
DX: E11.621 Type 2 diabetes mellitus with foot ulcer (principal); Z89.422 Acquired absence of other left toe(s)
CPT/HCPCS: 73630

== ENCOUNTER 2021-07-08 14:04 | Outpatient (CLI) | payer MEDICAID, SELFPAY | END 2021-07-08 14:05 | disposition home or self-care (01) | LOC: WOUND 14:05 | PROVIDERS: PCP Nurse Practitioner Family; Visit Provider Nurse Practitioner Family | DX: E11.621 Type 2 diabetes mellitus with foot ulcer (principal); L97.522 Non-pressure chronic ulcer of other part of left foot with fat layer exposed; L97.512 Non-pressure chronic ulcer of other part of right foot with fat layer exposed | CPT/HCPCS: 11042 ==

== ENCOUNTER 2021-07-11 07:10 | Outpatient (CLI) | payer MEDICAID, SELFPAY ==
--- NOTE | 2021-07-11 07:15 | NM_ITS ---
WS: [id number] THREE-PHASE BONE SCAN HISTORY: ? OSTEOMYELITIS/TYPE 2 DM W/FOOT ULCER COMPARISON: RIGHT foot radiograph 07/01/2021 Patient is is injected with 25.1 mCi Tc99m HDP intravenously. Immediate angiographic phase imaging is performed over the area of concern. Static blood pool imaging also performed. Two-hour whole-body sc intigrams performed in anterior and posterior projections. Additional large field of view imaging sub mitted as necessary. 3 phase bone imaging centered over the feet, in particular the RIGHT foot. Angiographic phase and blood pool phase imaging are positive involving the RIGHT foot. The most incre ased soft tissue uptake involves the medial RIGHT foot and at the amputation site of the first and se cond metatarsal amputation sites and along the medial RIGHT foot. On the delayed imaging there is mor e focal increased uptake involving the distal amputation site of the first metatarsal and also within the calcaneus and the distal tibia. The changes within the calcaneus and distal tibia may be related to abnormal weightbearing pattern. These areas were not positive on the angiographic and static bloo d pool images. Focal area of increased uptake within the RIGHT mandible probably associated with one of the molars. Consistent with dental caries and associated bone destruction. NM/NM bone 3 phase [id number] IMPRESSION: 1. Findings are highly suspicious for osteomyelitis involving the first RIGHT metatarsal at the amputation site. 2. There is a additional cellulitis and hyperemia involving the medial RIGHT f oot and extending over the metatarsal amputation sites. 3. Increased activity noted in the distal tibia and calcaneus may be due to al tered weightbearing.
== END 2021-07-11 07:11 | disposition home or self-care (01) ==
PROVIDERS: PCP Nurse Practitioner Family; Visit Provider Emergency Medicine
DX: E11.621 Type 2 diabetes mellitus with foot ulcer (principal); Z89.421 Acquired absence of other right toe(s); L03.031 Cellulitis of right toe; R68.89 Other general symptoms and signs
CPT/HCPCS: 78315; A9561

== ENCOUNTER 2021-07-15 14:12 | Outpatient (CLI) | payer MEDICAID, SELFPAY | END 2021-07-15 14:13 | disposition home or self-care (01) | LOC: WOUND 14:13 | PROVIDERS: PCP Nurse Practitioner Family; Visit Provider Nurse Practitioner Family | DX: I96 Gangrene, not elsewhere classified (principal); E11.621 Type 2 diabetes mellitus with foot ulcer; L97.522 Non-pressure chronic ulcer of other part of left foot with fat layer exposed; L97.512 Non-pressure chronic ulcer of other part of right foot with fat layer exposed | CPT/HCPCS: 11042 ==

== ENCOUNTER → 2021-07-24 15:01 | Outpatient (BNVA) | payer MEDICAID, SELFPAY | PROVIDERS: PCP Nurse Practitioner Family; Visit Provider Internal Medicine | DX: E11.42 Type 2 diabetes mellitus with diabetic polyneuropathy (principal); M86.9 Osteomyelitis, unspecified; Z89.431 Acquired absence of right foot; Z79.84 Long term (current) use of oral hypoglycemic drugs | CPT/HCPCS: 99214 ==

== ENCOUNTER → 2022-07-08 14:28 | Outpatient (BNVA) | payer MEDICARE, MEDICAID, SELFPAY | PROVIDERS: PCP Nurse Practitioner Family; Referring Provider Nurse Practitioner Family; Visit Provider Podiatrist Foot & Ankle Surgery | DX: E11.621 Type 2 diabetes mellitus with foot ulcer (principal); L97.513 Non-pressure chronic ulcer of other part of right foot with necrosis of muscle; Z89.431 Acquired absence of right foot; E11.42 Type 2 diabetes mellitus with diabetic polyneuropathy; M24.571 Contracture, right ankle; Z79.84 Long term (current) use of oral hypoglycemic drugs; Z79.4 Long term (current) use of insulin; L97.522 Non-pressure chronic ulcer of other part of left foot with fat layer exposed | CPT/HCPCS: 11043; 73630; 87070; 87075; 87077; 87186; 87205 ==

== ENCOUNTER → 2022-07-16 14:03 | Outpatient (BNVA) | payer MEDICARE, MEDICAID, SELFPAY | PROVIDERS: PCP Nurse Practitioner Family; Visit Provider Surgery | DX: I96 Gangrene, not elsewhere classified (principal); E11.621 Type 2 diabetes mellitus with foot ulcer; L97.412 Non-pressure chronic ulcer of right heel and midfoot with fat layer exposed | CPT/HCPCS: 11042; 99213 ==

== ENCOUNTER 2022-07-24 14:32 | Outpatient (CLI) | payer MEDICARE, MEDICAID, SELFPAY ==
--- NOTE | 2022-07-24 15:45 | USR_ITS ---
PROCEDURE INFORMATION: Exam: US Duplex Right Lower Extremity Arteries Or Arterial Bypass Grafts Exam date and time: 07/24/2022 3:04 PM Age: 57 years old Clinical indication: Other: Ulcer; Additional info: Diabetic foot ulcer, with lianne TECHNIQUE: Imaging protocol: Right Real-time duplex scan of the arteries or arterial bypass grafts of the right lower extremity with 2-D rodriguez scale, color Doppler flow and spectral waveform analysis. Images documented and saved. COMPARISON: CR XR foot RT min 3V* [id number] 07/08/2022 2:33 PM FINDINGS: Right common femoral artery: No occlusion or significant stenosis. Triphasic waveform. No pseudoaneurysm in the inguinal region. Right superficial femoral artery: No occlusion or significant stenosis. Triphasic waveform. Right popliteal artery: No occlusion or significant stenosis. Triphasic waveform. PSV 37 cm/s. Right calf/foot arteries: No occlusion or significant stenosis in the visualized arteries. Triphasic waveforms. PSV 40 cm/s. Dorsalis pedis artery is patent. Triphasic waveform PSV 43.6 cm/s Soft tissues: No hematoma or collection. US/[place] [id number] IMPRESSION: No stenosis or occlusion.
== END 2022-07-24 14:33 | disposition home or self-care (01) ==
PROVIDERS: PCP Nurse Practitioner Family; Visit Provider Surgery
DX: E11.621 Type 2 diabetes mellitus with foot ulcer (principal); L97.512 Non-pressure chronic ulcer of other part of right foot with fat layer exposed
CPT/HCPCS: 93926

== ENCOUNTER → 2022-07-30 14:45 | Outpatient (BNVA) | payer MEDICARE, MEDICAID, SELFPAY | PROVIDERS: PCP Nurse Practitioner Family; Visit Provider Thoracic Surgery (Cardiothoracic Vascular Surgery) | DX: I96 Gangrene, not elsewhere classified (principal); E11.621 Type 2 diabetes mellitus with foot ulcer; L97.412 Non-pressure chronic ulcer of right heel and midfoot with fat layer exposed | CPT/HCPCS: 11042; A6250 ==

== ENCOUNTER 2022-08-06 14:23 | Outpatient (CLI) | payer MEDICARE, MEDICAID, SELFPAY | END 2022-08-06 14:24 | disposition home or self-care (01) | LOC: SPT 14:30 | PROVIDERS: PCP Nurse Practitioner Family; Visit Provider Thoracic Surgery (Cardiothoracic Vascular Surgery) | DX: Z46.89 Encounter for fitting and adjustment of other specified devices (principal); E11.621 Type 2 diabetes mellitus with foot ulcer; S91.301A Unspecified open wound, right foot, initial encounter; X58.XXXA Exposure to other specified factors, initial encounter | CPT/HCPCS: 11042; 97760; L4361 ==

== ENCOUNTER → 2022-08-20 14:49 | Outpatient (BNVA) | payer MEDICARE, MEDICAID, SELFPAY | PROVIDERS: PCP Nurse Practitioner Family; Visit Provider Thoracic Surgery (Cardiothoracic Vascular Surgery) | DX: I96 Gangrene, not elsewhere classified (principal); E11.621 Type 2 diabetes mellitus with foot ulcer; L97.412 Non-pressure chronic ulcer of right heel and midfoot with fat layer exposed | CPT/HCPCS: 11042; A6446 ==

== ENCOUNTER → 2022-08-27 15:38 | Outpatient (BNVA) | payer MEDICARE, MEDICAID, SELFPAY | PROVIDERS: PCP Nurse Practitioner Family; Visit Provider Thoracic Surgery (Cardiothoracic Vascular Surgery) | DX: I96 Gangrene, not elsewhere classified (principal); E11.621 Type 2 diabetes mellitus with foot ulcer; L97.412 Non-pressure chronic ulcer of right heel and midfoot with fat layer exposed | CPT/HCPCS: 11042 ==

== ENCOUNTER → 2022-09-10 13:36 | Outpatient (BNVA) | payer MEDICARE, MEDICAID, SELFPAY | PROVIDERS: PCP Nurse Practitioner Family; Visit Provider Thoracic Surgery (Cardiothoracic Vascular Surgery) | DX: I96 Gangrene, not elsewhere classified (principal); E11.621 Type 2 diabetes mellitus with foot ulcer; L97.412 Non-pressure chronic ulcer of right heel and midfoot with fat layer exposed | CPT/HCPCS: 11042; A6219 ==

== ENCOUNTER → 2022-09-24 14:07 | Outpatient (BNVA) | payer MEDICARE, MEDICAID, SELFPAY | PROVIDERS: PCP Nurse Practitioner Family; Visit Provider Thoracic Surgery (Cardiothoracic Vascular Surgery) | DX: I96 Gangrene, not elsewhere classified (principal); E11.621 Type 2 diabetes mellitus with foot ulcer; L97.412 Non-pressure chronic ulcer of right heel and midfoot with fat layer exposed | CPT/HCPCS: 11042 ==

== ENCOUNTER → 2022-10-01 11:27 | Outpatient (BNVA) | payer MEDICARE, MEDICAID, SELFPAY | PROVIDERS: PCP Nurse Practitioner Family; Visit Provider Thoracic Surgery (Cardiothoracic Vascular Surgery) | DX: I96 Gangrene, not elsewhere classified (principal); E11.621 Type 2 diabetes mellitus with foot ulcer; L97.412 Non-pressure chronic ulcer of right heel and midfoot with fat layer exposed | CPT/HCPCS: 11042; A6219 ==

== ENCOUNTER → 2022-10-08 13:03 | Outpatient (BNVA) | payer MEDICARE, MEDICAID, SELFPAY | PROVIDERS: PCP Nurse Practitioner Family; Visit Provider Nurse Practitioner Family | DX: I96 Gangrene, not elsewhere classified (principal); E11.621 Type 2 diabetes mellitus with foot ulcer; L97.412 Non-pressure chronic ulcer of right heel and midfoot with fat layer exposed | CPT/HCPCS: 97597; A6219 ==

== ENCOUNTER → 2022-10-15 13:30 | Outpatient (BNVA) | payer MEDICARE, MEDICAID, SELFPAY | PROVIDERS: PCP Nurse Practitioner Family; Visit Provider Thoracic Surgery (Cardiothoracic Vascular Surgery) | DX: E11.621 Type 2 diabetes mellitus with foot ulcer (principal); L97.412 Non-pressure chronic ulcer of right heel and midfoot with fat layer exposed | CPT/HCPCS: 97597; A6212; A6250 ==

== ENCOUNTER 2022-10-22 14:31 | Outpatient (CLI) | payer MEDICARE, MEDICAID, SELFPAY ==
--- NOTE | 2022-10-22 14:44 | XRR_ITS ---
PROCEDURE INFORMATION: Exam: XR Left Foot Exam date and time: 10/22/2022 3:02 PM Age: 57 years old Clinical indication: Condition or disease; Other: Wound; Patient HX: Non healing left foot ulcer. History of bilateral toe amputations. ; Additional info: Non-healing ulcer; Rule out osteomyelitis TECHNIQUE: Imaging protocol: Radiologic exam of the left foot. Views: 3 or more views. Total images: 2 COMPARISON: CR XR foot LT min 3V* [id number] 07/01/2021 2:31 PM FINDINGS: Bones/joints: Status post amputation of digits with disarticulation metatarsal-phalangeal joint at the 1st, 2nd, and 4th digit. Amputation at the proximal phalanx of the 3rd digit, and amputation of the distal metatarsal of the 5th digit. An os naviculare is present. No acute fracture nor subluxation. No osseous erosion nor periosteal reaction. An enthesophyte is noted at the Achilles tendon insertion site. A heel spur is present. Soft tissues: Normal. XR/XR foot LT min 3V* [id number] IMPRESSION: 1. Status post amputation of digits with disarticulation metatarsal-phalangeal joint at the 1st, 2nd, and 4th digit. Amputation at the proximal phalanx of the 3rd digit, and amputation of the distal metatarsal of the 5th digit. 2. No acute osseous pathology.
== END 2022-10-22 14:32 | disposition home or self-care (01) ==
PROVIDERS: PCP Nurse Practitioner Family; Visit Provider Thoracic Surgery (Cardiothoracic Vascular Surgery)
DX: E11.621 Type 2 diabetes mellitus with foot ulcer (principal); L97.509 Non-pressure chronic ulcer of other part of unspecified foot with unspecified severity; Z89.422 Acquired absence of other left toe(s); Z89.421 Acquired absence of other right toe(s)
CPT/HCPCS: 11042; 73630; 97597; A6210

== ENCOUNTER → 2022-10-29 13:06 | Outpatient (BNVA) | payer MEDICARE, MEDICAID, SELFPAY | PROVIDERS: PCP Nurse Practitioner Family; Visit Provider Thoracic Surgery (Cardiothoracic Vascular Surgery) | DX: I96 Gangrene, not elsewhere classified (principal); E11.621 Type 2 diabetes mellitus with foot ulcer; L97.412 Non-pressure chronic ulcer of right heel and midfoot with fat layer exposed; L97.521 Non-pressure chronic ulcer of other part of left foot limited to breakdown of skin; L97.421 Non-pressure chronic ulcer of left heel and midfoot limited to breakdown of skin | CPT/HCPCS: 11042; 97597; A6219 ==

== ENCOUNTER → 2022-11-12 14:41 | Outpatient (BNVA) | payer MEDICARE, MEDICAID, SELFPAY | PROVIDERS: PCP Nurse Practitioner Family; Visit Provider Thoracic Surgery (Cardiothoracic Vascular Surgery) | DX: I96 Gangrene, not elsewhere classified (principal); E11.621 Type 2 diabetes mellitus with foot ulcer; L97.412 Non-pressure chronic ulcer of right heel and midfoot with fat layer exposed; L97.521 Non-pressure chronic ulcer of other part of left foot limited to breakdown of skin | CPT/HCPCS: 97597 ==

== ENCOUNTER → 2022-11-19 14:33 | Outpatient (BNVA) | payer MEDICARE, MEDICAID, SELFPAY | PROVIDERS: PCP Nurse Practitioner Family; Visit Provider Thoracic Surgery (Cardiothoracic Vascular Surgery) | DX: I96 Gangrene, not elsewhere classified (principal); E11.621 Type 2 diabetes mellitus with foot ulcer; L97.412 Non-pressure chronic ulcer of right heel and midfoot with fat layer exposed; L97.521 Non-pressure chronic ulcer of other part of left foot limited to breakdown of skin; L97.421 Non-pressure chronic ulcer of left heel and midfoot limited to breakdown of skin | CPT/HCPCS: 11042; 97597 ==

== ENCOUNTER → 2022-11-26 15:32 | Outpatient (BNVA) | payer MEDICARE, MEDICAID, SELFPAY | PROVIDERS: PCP Nurse Practitioner Family; Visit Provider Thoracic Surgery (Cardiothoracic Vascular Surgery) | DX: E11.621 Type 2 diabetes mellitus with foot ulcer (principal); I96 Gangrene, not elsewhere classified; L97.412 Non-pressure chronic ulcer of right heel and midfoot with fat layer exposed; L97.521 Non-pressure chronic ulcer of other part of left foot limited to breakdown of skin | CPT/HCPCS: 11042; 97597; A6219 ==

== ENCOUNTER 2022-12-03 14:18 | Outpatient (CLI) | payer MEDICARE, MEDICAID, SELFPAY ==
--- NOTE | 2022-12-03 14:37 | XR_ITS ---
WS: [id number] Right foot, 3 views, 12/03/2022 Clinical Data: E11.621 - Type 2 diabetes mellitus with foot ulcer Comparison: Right foot, 07/08/2022 Findings: The amputation of the forefoot has not changed. The bases of the right first through fifth metatarsal s remain. No bone destruction or erosion is seen. There are no fractures or dislocations. There is a plantar sp ur and an Achilles spur. No evidence of osteomyelitis is seen. XR/XR foot RT min 3V* [id number] Impression: 1. No change in right forefoot amputation. 2. Negative for osteomyelitis.
== END 2022-12-03 14:19 | disposition home or self-care (01) ==
PROVIDERS: PCP Nurse Practitioner Family; Visit Provider Thoracic Surgery (Cardiothoracic Vascular Surgery)
DX: E11.621 Type 2 diabetes mellitus with foot ulcer (principal); L97.509 Non-pressure chronic ulcer of other part of unspecified foot with unspecified severity; Z89.431 Acquired absence of right foot
CPT/HCPCS: 11042; 73630; 97597

== ENCOUNTER → 2022-12-10 13:07 | Outpatient (BNVA) | payer MEDICARE, MEDICAID, SELFPAY | PROVIDERS: PCP Nurse Practitioner Family; Visit Provider Thoracic Surgery (Cardiothoracic Vascular Surgery) | DX: E11.621 Type 2 diabetes mellitus with foot ulcer (principal); I96 Gangrene, not elsewhere classified; L97.412 Non-pressure chronic ulcer of right heel and midfoot with fat layer exposed; L97.521 Non-pressure chronic ulcer of other part of left foot limited to breakdown of skin; L97.421 Non-pressure chronic ulcer of left heel and midfoot limited to breakdown of skin | CPT/HCPCS: 11042; 97597 ==

== ENCOUNTER → 2022-12-17 14:10 | Outpatient (BNVA) | payer MEDICARE, MEDICAID, SELFPAY | PROVIDERS: PCP Nurse Practitioner Family; Visit Provider Thoracic Surgery (Cardiothoracic Vascular Surgery) | DX: I96 Gangrene, not elsewhere classified (principal); E11.621 Type 2 diabetes mellitus with foot ulcer; L97.412 Non-pressure chronic ulcer of right heel and midfoot with fat layer exposed; L97.521 Non-pressure chronic ulcer of other part of left foot limited to breakdown of skin; L97.421 Non-pressure chronic ulcer of left heel and midfoot limited to breakdown of skin | CPT/HCPCS: 11042; 97597 ==

== ENCOUNTER → 2022-12-22 15:26 | Outpatient (BNVA) | payer MEDICARE, MEDICAID, SELFPAY | PROVIDERS: PCP Nurse Practitioner Family; Visit Provider Thoracic Surgery (Cardiothoracic Vascular Surgery) | DX: I96 Gangrene, not elsewhere classified (principal); E11.621 Type 2 diabetes mellitus with foot ulcer; L97.412 Non-pressure chronic ulcer of right heel and midfoot with fat layer exposed; L97.521 Non-pressure chronic ulcer of other part of left foot limited to breakdown of skin; L97.421 Non-pressure chronic ulcer of left heel and midfoot limited to breakdown of skin | CPT/HCPCS: 11042; 87070; 87077; 87186; 97597 ==

== ENCOUNTER → 2022-12-29 13:04 | Outpatient (BNVA) | payer MEDICARE, MEDICAID, SELFPAY | PROVIDERS: PCP Nurse Practitioner Family; Visit Provider Thoracic Surgery (Cardiothoracic Vascular Surgery) | DX: E11.52 Type 2 diabetes mellitus with diabetic peripheral angiopathy with gangrene (principal); L97.412 Non-pressure chronic ulcer of right heel and midfoot with fat layer exposed; L97.521 Non-pressure chronic ulcer of other part of left foot limited to breakdown of skin | CPT/HCPCS: 11042; 97597 ==

== ENCOUNTER → 2023-01-05 14:53 | Outpatient (BNVA) | payer MEDICARE, MEDICAID, SELFPAY | PROVIDERS: PCP Nurse Practitioner Family; Visit Provider Thoracic Surgery (Cardiothoracic Vascular Surgery) | DX: E11.52 Type 2 diabetes mellitus with diabetic peripheral angiopathy with gangrene (principal); L97.412 Non-pressure chronic ulcer of right heel and midfoot with fat layer exposed; L97.522 Non-pressure chronic ulcer of other part of left foot with fat layer exposed; L97.421 Non-pressure chronic ulcer of left heel and midfoot limited to breakdown of skin | CPT/HCPCS: 11042; 97597 ==

== ENCOUNTER → 2023-01-12 14:59 | Outpatient (BNVA) | payer MEDICARE, MEDICAID, SELFPAY | PROVIDERS: PCP Nurse Practitioner Family; Visit Provider Thoracic Surgery (Cardiothoracic Vascular Surgery) | DX: E11.52 Type 2 diabetes mellitus with diabetic peripheral angiopathy with gangrene (principal); L97.412 Non-pressure chronic ulcer of right heel and midfoot with fat layer exposed; L97.521 Non-pressure chronic ulcer of other part of left foot limited to breakdown of skin; L97.421 Non-pressure chronic ulcer of left heel and midfoot limited to breakdown of skin | CPT/HCPCS: 97597 ==

== ENCOUNTER → 2023-02-09 14:22 | Outpatient (BNVA) | payer MEDICARE, MEDICAID, SELFPAY | PROVIDERS: PCP Nurse Practitioner Family; Visit Provider Thoracic Surgery (Cardiothoracic Vascular Surgery) | DX: E11.52 Type 2 diabetes mellitus with diabetic peripheral angiopathy with gangrene (principal); L97.412 Non-pressure chronic ulcer of right heel and midfoot with fat layer exposed; L97.521 Non-pressure chronic ulcer of other part of left foot limited to breakdown of skin; L97.421 Non-pressure chronic ulcer of left heel and midfoot limited to breakdown of skin; L89.612 Pressure ulcer of right heel, stage 2 | CPT/HCPCS: 11042; 97597; A6219 ==

== ENCOUNTER → 2023-02-16 15:30 | Outpatient (BNVA) | payer MEDICARE, MEDICAID, SELFPAY | PROVIDERS: PCP Nurse Practitioner Family; Visit Provider Thoracic Surgery (Cardiothoracic Vascular Surgery) | DX: E11.52 Type 2 diabetes mellitus with diabetic peripheral angiopathy with gangrene (principal); L97.412 Non-pressure chronic ulcer of right heel and midfoot with fat layer exposed; L97.521 Non-pressure chronic ulcer of other part of left foot limited to breakdown of skin; L97.421 Non-pressure chronic ulcer of left heel and midfoot limited to breakdown of skin; L89.612 Pressure ulcer of right heel, stage 2 | CPT/HCPCS: 11042; 97597; A6219 ==

== ENCOUNTER → 2023-02-23 15:00 | Outpatient (BNVA) | payer MEDICARE, MEDICAID, SELFPAY | PROVIDERS: PCP Nurse Practitioner Family; Visit Provider Thoracic Surgery (Cardiothoracic Vascular Surgery) | DX: E11.52 Type 2 diabetes mellitus with diabetic peripheral angiopathy with gangrene (principal); L97.412 Non-pressure chronic ulcer of right heel and midfoot with fat layer exposed; L97.521 Non-pressure chronic ulcer of other part of left foot limited to breakdown of skin; L97.421 Non-pressure chronic ulcer of left heel and midfoot limited to breakdown of skin | CPT/HCPCS: 11042; 97597; A6219 ==

== ENCOUNTER → 2023-03-02 14:10 | Outpatient (BNVA) | payer MEDICARE, MEDICAID, SELFPAY | PROVIDERS: PCP Nurse Practitioner Family; Visit Provider Thoracic Surgery (Cardiothoracic Vascular Surgery) | DX: E11.52 Type 2 diabetes mellitus with diabetic peripheral angiopathy with gangrene (principal); L97.421 Non-pressure chronic ulcer of left heel and midfoot limited to breakdown of skin; L97.412 Non-pressure chronic ulcer of right heel and midfoot with fat layer exposed | CPT/HCPCS: 11042; 97597; A6219 ==

== ENCOUNTER → 2023-03-09 14:34 | Outpatient (BNVA) | payer MEDICARE, MEDICAID, SELFPAY | PROVIDERS: PCP Nurse Practitioner Family; Visit Provider Thoracic Surgery (Cardiothoracic Vascular Surgery) | DX: E11.52 Type 2 diabetes mellitus with diabetic peripheral angiopathy with gangrene (principal); L97.412 Non-pressure chronic ulcer of right heel and midfoot with fat layer exposed; L97.421 Non-pressure chronic ulcer of left heel and midfoot limited to breakdown of skin | CPT/HCPCS: 11042; 97597 ==

== ENCOUNTER → 2023-03-12 14:37 | Outpatient (BNVA) | payer MEDICARE, MEDICAID, SELFPAY | PROVIDERS: PCP Nurse Practitioner Family; Visit Provider Nurse Practitioner Family | DX: E11.52 Type 2 diabetes mellitus with diabetic peripheral angiopathy with gangrene (principal); L97.412 Non-pressure chronic ulcer of right heel and midfoot with fat layer exposed; L97.521 Non-pressure chronic ulcer of other part of left foot limited to breakdown of skin; L97.421 Non-pressure chronic ulcer of left heel and midfoot limited to breakdown of skin | CPT/HCPCS: 29445; A6212 ==

== ENCOUNTER → 2023-03-16 15:12 | Outpatient (BNVA) | payer MEDICARE, MEDICAID, SELFPAY | PROVIDERS: PCP Nurse Practitioner Family; Visit Provider Thoracic Surgery (Cardiothoracic Vascular Surgery) | DX: E11.52 Type 2 diabetes mellitus with diabetic peripheral angiopathy with gangrene (principal); L97.412 Non-pressure chronic ulcer of right heel and midfoot with fat layer exposed; L97.521 Non-pressure chronic ulcer of other part of left foot limited to breakdown of skin; L97.421 Non-pressure chronic ulcer of left heel and midfoot limited to breakdown of skin; L97.511 Non-pressure chronic ulcer of other part of right foot limited to breakdown of skin | CPT/HCPCS: 97597; A6212 ==

== ENCOUNTER → 2023-03-24 14:41 | Outpatient (BNVA) | payer MEDICARE, SELFPAY | PROVIDERS: PCP Nurse Practitioner Family; Visit Provider Nurse Practitioner Family | DX: E11.52 Type 2 diabetes mellitus with diabetic peripheral angiopathy with gangrene (principal); L97.412 Non-pressure chronic ulcer of right heel and midfoot with fat layer exposed; L97.521 Non-pressure chronic ulcer of other part of left foot limited to breakdown of skin; L97.421 Non-pressure chronic ulcer of left heel and midfoot limited to breakdown of skin; Z09 Encounter for follow-up examination after completed treatment for conditions other than malignant neoplasm | CPT/HCPCS: 29445; 97597; A6213; A6252 ==

== ENCOUNTER → 2023-03-30 15:39 | Outpatient (BNVA) | payer MEDICARE, SELFPAY | PROVIDERS: PCP Nurse Practitioner Family; Visit Provider Thoracic Surgery (Cardiothoracic Vascular Surgery) | DX: E11.52 Type 2 diabetes mellitus with diabetic peripheral angiopathy with gangrene (principal); L97.521 Non-pressure chronic ulcer of other part of left foot limited to breakdown of skin; L97.421 Non-pressure chronic ulcer of left heel and midfoot limited to breakdown of skin; Z09 Encounter for follow-up examination after completed treatment for conditions other than malignant neoplasm | CPT/HCPCS: 11042; 97597; A6210 ==

== ENCOUNTER → 2023-04-06 14:41 | Outpatient (BNVA) | payer MEDICARE, SELFPAY | PROVIDERS: PCP Nurse Practitioner Family; Visit Provider Nurse Practitioner Family | DX: E11.52 Type 2 diabetes mellitus with diabetic peripheral angiopathy with gangrene (principal); L97.521 Non-pressure chronic ulcer of other part of left foot limited to breakdown of skin; Z09 Encounter for follow-up examination after completed treatment for conditions other than malignant neoplasm | CPT/HCPCS: 97597; A6210; A6219 ==

== ENCOUNTER → 2023-04-13 15:36 | Outpatient (BNVA) | payer MEDICARE, SELFPAY | PROVIDERS: PCP Nurse Practitioner Family; Visit Provider Thoracic Surgery (Cardiothoracic Vascular Surgery) | DX: E11.52 Type 2 diabetes mellitus with diabetic peripheral angiopathy with gangrene (principal); L97.422 Non-pressure chronic ulcer of left heel and midfoot with fat layer exposed; L97.512 Non-pressure chronic ulcer of other part of right foot with fat layer exposed; L97.522 Non-pressure chronic ulcer of other part of left foot with fat layer exposed; L97.412 Non-pressure chronic ulcer of right heel and midfoot with fat layer exposed | CPT/HCPCS: 97597 ==

== ENCOUNTER → 2023-04-20 12:58 | Outpatient (BNVA) | payer MEDICARE, SELFPAY | PROVIDERS: PCP Nurse Practitioner Family; Visit Provider Thoracic Surgery (Cardiothoracic Vascular Surgery) | DX: E11.52 Type 2 diabetes mellitus with diabetic peripheral angiopathy with gangrene (principal); L97.422 Non-pressure chronic ulcer of left heel and midfoot with fat layer exposed; L97.512 Non-pressure chronic ulcer of other part of right foot with fat layer exposed; L97.412 Non-pressure chronic ulcer of right heel and midfoot with fat layer exposed; L97.521 Non-pressure chronic ulcer of other part of left foot limited to breakdown of skin | CPT/HCPCS: 97597 ==

== ENCOUNTER → 2023-04-27 12:59 | Outpatient (BNVA) | payer MEDICARE, MEDICAID, SELFPAY | PROVIDERS: PCP Nurse Practitioner Family; Visit Provider Thoracic Surgery (Cardiothoracic Vascular Surgery) | DX: E11.52 Type 2 diabetes mellitus with diabetic peripheral angiopathy with gangrene (principal); L97.511 Non-pressure chronic ulcer of other part of right foot limited to breakdown of skin; L97.411 Non-pressure chronic ulcer of right heel and midfoot limited to breakdown of skin; L97.521 Non-pressure chronic ulcer of other part of left foot limited to breakdown of skin; Z09 Encounter for follow-up examination after completed treatment for conditions other than malignant neoplasm | CPT/HCPCS: 97597 ==

== ENCOUNTER → 2023-05-04 14:00 | Outpatient (BNVA) | payer MEDICARE, MEDICAID, SELFPAY | PROVIDERS: PCP Nurse Practitioner Family; Visit Provider Thoracic Surgery (Cardiothoracic Vascular Surgery) | DX: E11.52 Type 2 diabetes mellitus with diabetic peripheral angiopathy with gangrene (principal); E11.621 Type 2 diabetes mellitus with foot ulcer; L97.512 Non-pressure chronic ulcer of other part of right foot with fat layer exposed; L97.422 Non-pressure chronic ulcer of left heel and midfoot with fat layer exposed; L97.411 Non-pressure chronic ulcer of right heel and midfoot limited to breakdown of skin; L97.521 Non-pressure chronic ulcer of other part of left foot limited to breakdown of skin | CPT/HCPCS: 11042; 97597 ==

== ENCOUNTER → 2023-05-06 14:49 | Outpatient (BNVA) | payer MEDICARE, MEDICAID, SELFPAY | PROVIDERS: PCP Nurse Practitioner Family; Visit Provider Thoracic Surgery (Cardiothoracic Vascular Surgery) | DX: E11.52 Type 2 diabetes mellitus with diabetic peripheral angiopathy with gangrene (principal); E11.621 Type 2 diabetes mellitus with foot ulcer; L97.512 Non-pressure chronic ulcer of other part of right foot with fat layer exposed; L97.412 Non-pressure chronic ulcer of right heel and midfoot with fat layer exposed | CPT/HCPCS: 29445; A6219 ==

== ENCOUNTER → 2023-05-11 14:43 | Outpatient (BNVA) | payer MEDICARE, MEDICAID, SELFPAY | PROVIDERS: PCP Nurse Practitioner Family; Visit Provider Nurse Practitioner Family | DX: E11.52 Type 2 diabetes mellitus with diabetic peripheral angiopathy with gangrene (principal); E11.621 Type 2 diabetes mellitus with foot ulcer; L97.512 Non-pressure chronic ulcer of other part of right foot with fat layer exposed; L97.412 Non-pressure chronic ulcer of right heel and midfoot with fat layer exposed; L97.422 Non-pressure chronic ulcer of left heel and midfoot with fat layer exposed; L97.522 Non-pressure chronic ulcer of other part of left foot with fat layer exposed | CPT/HCPCS: 11042; A6219 ==

== ENCOUNTER → 2023-05-18 13:27 | Outpatient (BNVA) | payer MEDICARE, MEDICAID, SELFPAY | PROVIDERS: PCP Nurse Practitioner Family; Visit Provider Thoracic Surgery (Cardiothoracic Vascular Surgery) | DX: E11.621 Type 2 diabetes mellitus with foot ulcer (principal); L97.511 Non-pressure chronic ulcer of other part of right foot limited to breakdown of skin; L97.421 Non-pressure chronic ulcer of left heel and midfoot limited to breakdown of skin; L97.521 Non-pressure chronic ulcer of other part of left foot limited to breakdown of skin; Z09 Encounter for follow-up examination after completed treatment for conditions other than malignant neoplasm | CPT/HCPCS: 11042; 97597; A6210 ==

== ENCOUNTER → 2023-05-25 13:02 | Outpatient (BNVA) | payer MEDICARE, MEDICAID, SELFPAY | PROVIDERS: PCP Nurse Practitioner Family; Visit Provider Thoracic Surgery (Cardiothoracic Vascular Surgery) | DX: E11.621 Type 2 diabetes mellitus with foot ulcer (principal); L97.511 Non-pressure chronic ulcer of other part of right foot limited to breakdown of skin; L97.521 Non-pressure chronic ulcer of other part of left foot limited to breakdown of skin; Z09 Encounter for follow-up examination after completed treatment for conditions other than malignant neoplasm | CPT/HCPCS: 97597 ==

== ENCOUNTER → 2023-06-01 13:08 | Outpatient (BNVA) | payer MEDICARE, MEDICAID, SELFPAY | PROVIDERS: PCP Nurse Practitioner Family; Visit Provider Thoracic Surgery (Cardiothoracic Vascular Surgery) | DX: E11.52 Type 2 diabetes mellitus with diabetic peripheral angiopathy with gangrene (principal); E11.622 Type 2 diabetes mellitus with other skin ulcer; L97.511 Non-pressure chronic ulcer of other part of right foot limited to breakdown of skin; L97.521 Non-pressure chronic ulcer of other part of left foot limited to breakdown of skin | CPT/HCPCS: 97597 ==

== ENCOUNTER → 2023-06-08 13:06 | Outpatient (BNVA) | payer MEDICARE, MEDICAID, SELFPAY | PROVIDERS: PCP Nurse Practitioner Family; Visit Provider Thoracic Surgery (Cardiothoracic Vascular Surgery) | DX: E11.52 Type 2 diabetes mellitus with diabetic peripheral angiopathy with gangrene (principal); E11.621 Type 2 diabetes mellitus with foot ulcer; L97.512 Non-pressure chronic ulcer of other part of right foot with fat layer exposed; L97.521 Non-pressure chronic ulcer of other part of left foot limited to breakdown of skin | CPT/HCPCS: 11042; 97597; A6210; A6251 ==

== ENCOUNTER → 2023-06-15 13:05 | Outpatient (BNVA) | payer MEDICARE, MEDICAID, SELFPAY | PROVIDERS: PCP Nurse Practitioner Family; Visit Provider Nurse Practitioner Family | DX: E11.52 Type 2 diabetes mellitus with diabetic peripheral angiopathy with gangrene (principal); E11.621 Type 2 diabetes mellitus with foot ulcer; L97.512 Non-pressure chronic ulcer of other part of right foot with fat layer exposed; L97.522 Non-pressure chronic ulcer of other part of left foot with fat layer exposed | CPT/HCPCS: 11042; A6210; A6251 ==

== ENCOUNTER → 2023-06-22 14:04 | Outpatient (BNVA) | payer MEDICARE, MEDICAID, SELFPAY | PROVIDERS: PCP Nurse Practitioner Family; Visit Provider Thoracic Surgery (Cardiothoracic Vascular Surgery) | DX: E11.52 Type 2 diabetes mellitus with diabetic peripheral angiopathy with gangrene (principal); E11.621 Type 2 diabetes mellitus with foot ulcer; L97.511 Non-pressure chronic ulcer of other part of right foot limited to breakdown of skin; L97.521 Non-pressure chronic ulcer of other part of left foot limited to breakdown of skin | CPT/HCPCS: 97597; A6212 ×2; A6219 ==

== ENCOUNTER → 2023-06-29 13:42 | Outpatient (BNVA) | payer MEDICARE, MEDICAID, SELFPAY | PROVIDERS: PCP Nurse Practitioner Family; Visit Provider Thoracic Surgery (Cardiothoracic Vascular Surgery) | DX: E11.52 Type 2 diabetes mellitus with diabetic peripheral angiopathy with gangrene (principal); E11.621 Type 2 diabetes mellitus with foot ulcer; L97.511 Non-pressure chronic ulcer of other part of right foot limited to breakdown of skin; L97.521 Non-pressure chronic ulcer of other part of left foot limited to breakdown of skin | CPT/HCPCS: 11042; 97597; A6212 ==

== ENCOUNTER → 2023-07-06 15:04 | Outpatient (BNVA) | payer MEDICARE, MEDICAID, SELFPAY | PROVIDERS: PCP Nurse Practitioner Family; Visit Provider Thoracic Surgery (Cardiothoracic Vascular Surgery) | DX: E11.52 Type 2 diabetes mellitus with diabetic peripheral angiopathy with gangrene (principal); E11.621 Type 2 diabetes mellitus with foot ulcer; L97.511 Non-pressure chronic ulcer of other part of right foot limited to breakdown of skin; L97.521 Non-pressure chronic ulcer of other part of left foot limited to breakdown of skin | CPT/HCPCS: 97597 ==

== ENCOUNTER → 2023-07-21 13:51 | Outpatient (BNVA) | payer MEDICARE, MEDICAID, SELFPAY | PROVIDERS: PCP Nurse Practitioner Family; Visit Provider Nurse Practitioner Family | DX: E11.52 Type 2 diabetes mellitus with diabetic peripheral angiopathy with gangrene (principal); E11.621 Type 2 diabetes mellitus with foot ulcer; L97.512 Non-pressure chronic ulcer of other part of right foot with fat layer exposed; L97.521 Non-pressure chronic ulcer of other part of left foot limited to breakdown of skin; Z09 Encounter for follow-up examination after completed treatment for conditions other than malignant neoplasm | CPT/HCPCS: 11042; A6251 ==

== ENCOUNTER → 2023-07-27 12:59 | Outpatient (BNVA) | payer MEDICARE, MEDICAID, SELFPAY | PROVIDERS: PCP Nurse Practitioner Family; Visit Provider Thoracic Surgery (Cardiothoracic Vascular Surgery) | DX: E11.52 Type 2 diabetes mellitus with diabetic peripheral angiopathy with gangrene (principal); E11.621 Type 2 diabetes mellitus with foot ulcer; L97.512 Non-pressure chronic ulcer of other part of right foot with fat layer exposed; L97.521 Non-pressure chronic ulcer of other part of left foot limited to breakdown of skin | CPT/HCPCS: 11042; 97597; A6219; A6251 ==

== ENCOUNTER → 2023-08-03 12:55 | Outpatient (BNVA) | payer MEDICARE, MEDICAID, SELFPAY | PROVIDERS: PCP Nurse Practitioner Family; Visit Provider Thoracic Surgery (Cardiothoracic Vascular Surgery) | DX: E11.52 Type 2 diabetes mellitus with diabetic peripheral angiopathy with gangrene (principal); E11.621 Type 2 diabetes mellitus with foot ulcer; L97.511 Non-pressure chronic ulcer of other part of right foot limited to breakdown of skin; L97.521 Non-pressure chronic ulcer of other part of left foot limited to breakdown of skin | CPT/HCPCS: 11042; 97597; A6212; A6251 ==

== ENCOUNTER → 2023-08-11 13:07 | Outpatient (BNVA) | payer MEDICARE, MEDICAID, SELFPAY | PROVIDERS: PCP Nurse Practitioner Family; Visit Provider Nurse Practitioner Family | DX: E11.52 Type 2 diabetes mellitus with diabetic peripheral angiopathy with gangrene (principal); E11.621 Type 2 diabetes mellitus with foot ulcer; L97.512 Non-pressure chronic ulcer of other part of right foot with fat layer exposed; L97.522 Non-pressure chronic ulcer of other part of left foot with fat layer exposed | CPT/HCPCS: 11042; 29445; A6210; A6251 ==

== ENCOUNTER → 2023-08-17 14:17 | Outpatient (BNVA) | payer MEDICARE, MEDICAID, SELFPAY | PROVIDERS: PCP Nurse Practitioner Family; Visit Provider Thoracic Surgery (Cardiothoracic Vascular Surgery) | DX: E11.52 Type 2 diabetes mellitus with diabetic peripheral angiopathy with gangrene (principal); E11.621 Type 2 diabetes mellitus with foot ulcer; L97.511 Non-pressure chronic ulcer of other part of right foot limited to breakdown of skin; L97.521 Non-pressure chronic ulcer of other part of left foot limited to breakdown of skin | CPT/HCPCS: 11042; 97597; A6212; A6219 ==

== ENCOUNTER → 2023-08-25 14:45 | Outpatient (BNVA) | payer MEDICARE, MEDICAID, SELFPAY | PROVIDERS: PCP Nurse Practitioner Family; Visit Provider Thoracic Surgery (Cardiothoracic Vascular Surgery) | DX: E11.52 Type 2 diabetes mellitus with diabetic peripheral angiopathy with gangrene (principal); E11.621 Type 2 diabetes mellitus with foot ulcer; L97.511 Non-pressure chronic ulcer of other part of right foot limited to breakdown of skin; L97.521 Non-pressure chronic ulcer of other part of left foot limited to breakdown of skin | CPT/HCPCS: 97597; A6248 ==

== ENCOUNTER → 2023-09-01 13:03 | Outpatient (BNVA) | payer MEDICARE, MEDICAID, SELFPAY | PROVIDERS: PCP Nurse Practitioner Family; Visit Provider Thoracic Surgery (Cardiothoracic Vascular Surgery) | DX: E11.52 Type 2 diabetes mellitus with diabetic peripheral angiopathy with gangrene (principal); E11.621 Type 2 diabetes mellitus with foot ulcer; L97.511 Non-pressure chronic ulcer of other part of right foot limited to breakdown of skin; L97.521 Non-pressure chronic ulcer of other part of left foot limited to breakdown of skin | CPT/HCPCS: 97597 ==

== ENCOUNTER → 2023-09-08 13:09 | Outpatient (BNVA) | payer MEDICARE, MEDICAID, SELFPAY | PROVIDERS: PCP Nurse Practitioner Family; Visit Provider Thoracic Surgery (Cardiothoracic Vascular Surgery) | DX: E11.52 Type 2 diabetes mellitus with diabetic peripheral angiopathy with gangrene (principal); E11.621 Type 2 diabetes mellitus with foot ulcer; L97.511 Non-pressure chronic ulcer of other part of right foot limited to breakdown of skin; L97.521 Non-pressure chronic ulcer of other part of left foot limited to breakdown of skin | CPT/HCPCS: 11042; 97597; A6212; A6251 ==

== ENCOUNTER → 2023-09-11 11:23 | Outpatient (BNVA) | payer MEDICARE, MEDICAID, SELFPAY | PROVIDERS: PCP Nurse Practitioner Family; Visit Provider Thoracic Surgery (Cardiothoracic Vascular Surgery) | DX: E11.52 Type 2 diabetes mellitus with diabetic peripheral angiopathy with gangrene (principal); E11.621 Type 2 diabetes mellitus with foot ulcer; L97.511 Non-pressure chronic ulcer of other part of right foot limited to breakdown of skin; L97.521 Non-pressure chronic ulcer of other part of left foot limited to breakdown of skin | CPT/HCPCS: 29445 ==

== ENCOUNTER → 2023-09-15 13:04 | Outpatient (BNVA) | payer MEDICARE, MEDICAID, SELFPAY | PROVIDERS: PCP Nurse Practitioner Family; Visit Provider Thoracic Surgery (Cardiothoracic Vascular Surgery) | DX: E11.52 Type 2 diabetes mellitus with diabetic peripheral angiopathy with gangrene (principal); E11.621 Type 2 diabetes mellitus with foot ulcer; L97.512 Non-pressure chronic ulcer of other part of right foot with fat layer exposed; L97.521 Non-pressure chronic ulcer of other part of left foot limited to breakdown of skin; E11.622 Type 2 diabetes mellitus with other skin ulcer; L97.811 Non-pressure chronic ulcer of other part of right lower leg limited to breakdown of skin; Z09 Encounter for follow-up examination after completed treatment for conditions other than malignant neoplasm | CPT/HCPCS: 97597 ==

== ENCOUNTER → 2023-09-22 13:08 | Outpatient (BNVA) | payer MEDICARE, MEDICAID, SELFPAY | PROVIDERS: PCP Nurse Practitioner Family; Visit Provider Thoracic Surgery (Cardiothoracic Vascular Surgery) | DX: E11.52 Type 2 diabetes mellitus with diabetic peripheral angiopathy with gangrene (principal); E11.621 Type 2 diabetes mellitus with foot ulcer; L97.511 Non-pressure chronic ulcer of other part of right foot limited to breakdown of skin; L97.521 Non-pressure chronic ulcer of other part of left foot limited to breakdown of skin; E11.622 Type 2 diabetes mellitus with other skin ulcer; L97.811 Non-pressure chronic ulcer of other part of right lower leg limited to breakdown of skin | CPT/HCPCS: 97597; A6197; A6251 ==

== ENCOUNTER → 2023-09-29 13:06 | Outpatient (BNVA) | payer MEDICARE, MEDICAID, SELFPAY | PROVIDERS: PCP Nurse Practitioner Family; Visit Provider Thoracic Surgery (Cardiothoracic Vascular Surgery) | DX: E11.52 Type 2 diabetes mellitus with diabetic peripheral angiopathy with gangrene (principal); E11.621 Type 2 diabetes mellitus with foot ulcer; L97.511 Non-pressure chronic ulcer of other part of right foot limited to breakdown of skin; L97.521 Non-pressure chronic ulcer of other part of left foot limited to breakdown of skin; Z09 Encounter for follow-up examination after completed treatment for conditions other than malignant neoplasm | CPT/HCPCS: 97597; A6197; A6219; A6220 ==

== ENCOUNTER 2023-10-06 15:33 | Outpatient (CLI) | payer MEDICARE, MEDICAID, SELFPAY ==
--- NOTE | 2023-10-06 15:54 | XR_ITS ---
WS: [id number] Right foot, 3 views, 10/06/2023 Clinical Data: Diabetic foot ulcer Comparison: Right foot, 12/03/2022 Findings: The amputation of the forefoot remains the same. The bases of the first through fifth metatarsals rem ain and show no erosion or destruction. The tarsal bones are intact. There is a plantar spur and an A chilles spur. There are no fractures or dislocations. No osteomyelitis is seen. Impression: 1. No change in right forefoot amputation. 2. Negative for osteomyelitis.
== END 2023-10-06 15:34 | disposition home or self-care (01) ==
LOC: RAD 15:36
PROVIDERS: PCP Nurse Practitioner Family; Visit Provider Thoracic Surgery (Cardiothoracic Vascular Surgery)
DX: E11.52 Type 2 diabetes mellitus with diabetic peripheral angiopathy with gangrene (principal); E11.621 Type 2 diabetes mellitus with foot ulcer; L97.511 Non-pressure chronic ulcer of other part of right foot limited to breakdown of skin; L97.521 Non-pressure chronic ulcer of other part of left foot limited to breakdown of skin
CPT/HCPCS: 73620; 97597; A6197; A6219; A6220; A6251

== ENCOUNTER → 2023-10-13 14:05 | Outpatient (BNVA) | payer MEDICARE, MEDICAID, SELFPAY | PROVIDERS: PCP Nurse Practitioner Family; Visit Provider Thoracic Surgery (Cardiothoracic Vascular Surgery) | DX: E11.52 Type 2 diabetes mellitus with diabetic peripheral angiopathy with gangrene (principal); E11.621 Type 2 diabetes mellitus with foot ulcer; L97.511 Non-pressure chronic ulcer of other part of right foot limited to breakdown of skin; L97.521 Non-pressure chronic ulcer of other part of left foot limited to breakdown of skin; Z09 Encounter for follow-up examination after completed treatment for conditions other than malignant neoplasm | CPT/HCPCS: 97597; A6197 ==

== ENCOUNTER 2023-10-20 14:13 | Emergency (ER) | payer MEDICARE, MEDICAID, SELFPAY ==
[2023-10-20 14:16] VITALS: BP 130/80; PULSE 101; RESP 16; TEMP 36.8; O2SAT 98; BMI 32.1
[2023-10-20 14:58] LABS: Basophils # 0.1 10^3/uL (0.0-0.1); Basophils % 0.6 %; Eosinophils # 0.5 10^3/uL (0.0-0.8); Eosinophils % 3.7 %; Hematocrit 37.5 % (37-53); Lymphocytes # 2.4 10^3/uL (0.8-4.8); Lymphocytes % 19.3 %; Mean Corpuscular HGB Conc 32.5 g/dL (30-55); Mean Corpuscular Hemoglobin 27.6 pg (27-33); Mean Corpuscular Volume 84.8 fl (82-101); Mean Platelet Volume 9.5 fL (7.4-10.4); Monocytes % 7.8 %; Neutrophils # 8.46 10^3/uL (1.8-7.7); Neutrophils % 67.1 %; Nucleated Red Blood Cells % 0 %; Platelet Count 314 10^3/cmm (157-399); Red Blood Count 4.42 10^6/uL (3.85-5.65); Red Cell Distribution Width 13.2 % (12.1-15.1); White Blood Count 12.61 10^3/uL (3.29-11.43)
--- NOTE | 2023-10-20 14:58 | USCV_ITS ---
Leo Bond Age: 58 Gender: M : 1965 Exam Date: 10/20/2023 15:40 Ordering Phys: Alyssa Dupont MD Technologist: Exam Location: [facility] – [place] Indication: lt leg swelling HISTORY: Lower extremity swelling. PROCEDURES: Venous duplex imaging was performed in only the left lower extremity. The following venous structures were evaluated: common femoral vein, profunda vein, proximal portion of the greater saphenous vein, superficial femoral vein, and the popliteal vein. In addition, the posterior tibial and peroneal trunk were evaluated. On the left side, the common femoral, superficial femoral, profunda femoral, popliteal, posterior tibial, greater saphenous veins, and the peroneal trunk were identified and interrogated in the standard fashion. These veins were found to be easily compressible with spontaneous blood flow. No evidence of insufficiency or thrombus noted. FINDINGS: Normal 2-D Doppler and augmentation and compressibility throughout the lower extremity venous structures. Additional imaging through the proximal calf veins also reveals no thrombus. Limited evaluation of the greater saphenous vein is patent with no thrombus. CONCLUSIONS No evidence of left lower extremity DVT. Mynor Lundy MD (Electronically Signed) Final Date: 20 October 2023 16:48 S
[2023-10-20 15:05] LABS: Erythrocyte Sedimentation Rate 44 mm/hr (0-10)
--- NOTE | 2023-10-20 15:07 | W.ED.EXTPRO ---
HPI - Extremity Problem General: Chief complaint: Extremity Problem,Nontraumatic Stated complaint: left leg redness Time Seen by Provider: 10/20/23 14:42 Source: patient Mode of arrival: ambulatory Limitations: no limitations History of Present Illness: 58-year-old male has a history of peripheral vascular disease is sent here from wound care because he had some increased swelling to his left lower leg with some erythema to the left alvarado. He states this started on Thursday he denies any shortness of breath he denies any pain denies any fevers. Associated symptoms: Deny chest pain, fever(s) or rash Review of Systems Const: Denies: fever(s), chills, body aches or change in appetite ENMT: Denies: throat pain or dental pain Card: Denies: chest pain Resp: Denies: dyspnea GI: Denies: abdominal pain, nausea, vomiting or diarrhea Musc: Reports: extremity swelling; Denies: neck pain or back pain Skin/Breast: Denies: rash Neuro: Denies: headache(s) PFSH ED PFSH: Medical History Knowledge deficit on leg surgery leg opened with drain placement due to infection A-fib Amputation of one or more toes Hypertension Insulin dependent diabetes mellitus Acute cystitis without hematuria Acute urinary retention Surgical History H/O amputation all toes History of cholecystectomy S/P cholecystectomy S/P debridement thigh and foot Family History Father , at age 60 Myocardial infarction (lateral wall) Mother , at age 73 Diabetes Social History Second hand smoke exposure: Yes Alcohol intake: never Substance/Drug Use: never Caregiver/support person: Yes Lives independently: No Household members: family Housing: House Marital status: Single Number of children: 0 Highest education level completed: Some College, No Degree service: No Current occupational status: disabled Physical Exam Const: COMMON NORMALS: no acute distress, patient oriented x3 and healthy appearing HENMT: COMMON NORMALS: normocephalic and atraumatic HEAD & SCALP: normocephalic and atraumatic Neck/C-Spine: COMMON NORMALS: full ROM and supple Chest: COMMONS NORMALS: normal inspection of the chest Resp: COMMON NORMALS: normal respiratory effort Cardio: COMMON NORMALS: regular rate, regular rhythm and No murmurs present (Cardio) RATE: regular rate RHYTHM: regular rhythm Extremity: COMMON NORMALS: full ROM NARRATIVE EXTREMITY EXAM: Swelling noted to left lower leg with erythema to the left anterior alvarado distal pulses sensation intact Neuro: COMMON NORMALS: patient oriented x3, moves all extremities and no focal motor deficits Psych: COMMON NORMALS: mental status grossly normal, Normal thought process present and cooperative THOUGHT PROCESS: Normal thought process present Skin: COMMON NORMALS: no rashes or lesions noted and no wounds GENERAL SKIN EXAM: no rashes or lesions noted Course Vital Signs: Vital signs: Vital Signs Temperature 98.2 F 10/20/23 14:16 Pulse Rate 101 H 10/20/23 14:16 Respiratory Rate 16 10/20/23 14:16 Blood Pressure 125/92 10/20/23 16:35 Pulse Oximetry 97 10/20/23 16:35 Oxygen Delivery Me thod Room Air 10/20/23 16:09 MDM - Extremity (Nontraumatic) Medical Decision Making Patient presents with erythema to left leg likely cellulitis no fever he is well-appearing here has no signs of necrotizing fasciitis he has no signs of severe infection we will place him on Keflex he is follow-up with PCP return if worsening. Medical Records I reviewed the patient's medical records. Lab Data I reviewed the patient's lab results. 10/20/23 14:45 10/20/23 14:45 Laboratory Results WBC 12.61 10^3/uL (3.29-11.43) H 10/20/23 14:45 RBC 4.42 10^6/uL (3.85-5.65) 10/20/23 14:45 Hgb 12.20 g/dL (11.27-16.99) 10/20/23 14:45 Hct 37.5 % (37-53) 10/20/23 14:45 MCV 84.8 fl (82-101) 10/20/23 14:45 MCH 27.6 pg (27-33) 10/20/23 14:45 MCHC 32.5 g/dL (30-55) 10/20/23 14:45 RDW 13.2 % (12.1-15.1) 10/20/23 14:45 Plt Count 314 10^3/cmm (157-399) 10/20/23 14:45 MPV 9.5 fL (7.4-10.4) 10/20/23 14:45 Neut % (Auto) 67.1 % 10/20/23 14:45 Lymph % (Auto) 19.3 % 10/20/23 14:45 [place] % (Auto) 7.8 % 10/20/23 14:45 Eos % (Auto) 3.7 % 10/20/23 14:45 Baso % (Auto) 0.6 % 10/20/23 14:45 Neut # (Auto) 8.46 10^3/uL (1.8-7.7) H 10/20/23 14:45 Lymph # (Auto) 2.4 10^3/uL (0.8-4.8) 10/20/23 14:45 [place] # (Auto) 1.0 10^3/uL (0.2-0.9) H 10/20/23 14:45 Eos # (Auto) 0.5 10^3/uL (0.0-0.8) 10/20/23 14:45 Baso # (Auto) 0.1 10^3/uL (0.0-0.1) 10/20/23 14:45 Nucleated RBC % (auto) 0 % 10/20/23 14:45 Nucleated RBCs # 0.0 /100WBC 10/20/23 14:45 ESR 44 mm/hr (0-10) H 10/20/23 14:45 Sodium 132 mmol/L (136-145) L 10/20/23 14:45 Potassium 4.0 mmol/L (3.5-5.1) 10/20/23 14:45 Chloride 99 mmol/L (98-107) 10/20/23 14:45 Carbon Dioxide 22 mmol/L (22-29) 10/20/23 14:45 Anion Gap 15.0 (5-19) 10/20/23 14:45 BUN 21 mg/dL (6-20) H 10/20/23 14:45 Creatinine 0.9 mg/dL (0.7-1.2) 10/20/23 14:45 GFR Calculation 86.4 mL/min (90-130) L 10/20/23 14:45 Glucose 207 mg/dL (65-115) H 10/20/23 14:45 Calculated Osmolality 283 mOsm/kg (285-295) L 10/20/23 14:45 Calcium 8.5 mg/dL (8.5-10.5) 10/20/23 14:45 Total Bilirubin 0.3 mg/dL (0.15-1.2) 10/20/23 14:45 AST 15 U/L (0-40) 10/20/23 14:45 ALT 13 U/L (0-41) 10/20/23 14:45 Alkaline Phosphatase 120 U/L (40-130) 10/20/23 14:45 C-Reactive Protein 161.2 mg/L (0.0-4.9) H 10/20/23 14:45 Total Protein 7.4 g/dL (6.6-8.7) 10/20/23 14:45 Albumin 3.4 g/dL (3.5-5.2) L 10/20/23 14:45 Globulin 4.0 g/dL (1.3-4.6) 10/20/23 14:45 All radiology interpretation(s) finalized by discharge Discharge Plan Discharge Patient Disposition: Home Clinical Impression: Cellulitis Condition: Stable Prescriptions: New cephalexin 500 mg capsule 500 mg PO TID 7 Days Qty: 21 0RF No Action Toujeo Max U-300 SoloStar 300 unit/mL (3 mL) insulin pen 60 unit SUBCUT DAILY (DME) Cam Boot to the left See Rx Instructions .Route .MEDSUPPLY Qty: 1 0RF Rx Instructions: As directed metformin 500 mg tablet 500 mg PO BID Eliquis 5 mg tablet 5 mg PO BID atorvastatin 40 mg Tablet 40 mg PO DAILY lisinopril 10 mg Tablet 10 mg PO DAILY Trulicity 0.75 mg/0.5 mL pen injector 0.75 mg SUBCUT Q7D Discharge Orders: Discharge ED (Routine); Ordered 10/20/23 Ordered By: Alyssa Dupont Referrals: Jacinda Dutta TRAVEL PHYSICAL THERAPIST [Primary Care Provider] - Discharge Diet: Advance as tolerated Discharge Activity: Resume usual activity Patient Instructions: Cellulitis (ED) Coding Level of Care 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
[2023-10-20 15:11] LABS: Alanine Aminotransferase 13 U/L (0-41); Albumin Level 3.4 g/dL (3.5-5.2); Alkaline Phosphatase 120 U/L (40-130); Aspartate Amino Transferase 15 U/L (0-40); Blood Urea Nitrogen 21 mg/dL (6-20); C Reactive Protein 161.2 mg/L (0.0-4.9); Calcium 8.5 mg/dL (8.5-10.5); Carbon Dioxide 22 mmol/L (22-29); Chloride 99 mmol/L (98-107); Glomerular Filtration Rate 86.4 mL/min (90-130); Glucose 207 mg/dL (65-115); Osmolality Calculated 283 mOsm/kg (285-295); Sodium 132 mmol/L (136-145); Total Bilirubin 0.3 mg/dL (0.15-1.2); Total Protein 7.4 g/dL (6.6-8.7)
--- NOTE | 2023-10-20 16:02 | PC.PHAR ---
PT STATES HE TAKES ONLY THE FOLLOWING: ATORVASTATIN 40MG DAILY, ELIQUIS 5 MG TWICE DAILY, LISINOPRIL 10MG DAILY, METFORMIN 500MG TWICE DAILY, TOUJEO MAX U-300UNITML 60 UNITS DAILY, AND TRULICITY 0.75MG/0.5ML EVERY 7 DAYS. PT ALSO STATES DOSATE ON TRULICITY GOES UP NEXT WEEK TO 1.5MG/0.5ML. NO NEW RX FOR IT CURRENTLY. SEVERAL PRESCRIPTIONS FOR TABLETS WERE ENTERED (VIAL) AND HAD TO BE DELETED AND RE ENTERED CORRECTLY. 10/20/23
[2023-10-20 16:09] VITALS: BP 125/92; O2SAT 97
[2023-10-20] MEDS: cephALEXin 500 mg Capsule PO (16:34)
[2023-10-20 16:35] VITALS: BP 125/92; O2SAT 97
== END 2023-10-20 16:52 | disposition home or self-care (01) ==
PROVIDERS: Emergency Provider Emergency Medicine; PCP Nurse Practitioner Family
DX: L03.116 Cellulitis of left lower limb (principal); Z79.4 Long term (current) use of insulin; Z79.84 Long term (current) use of oral hypoglycemic drugs; Z79.01 Long term (current) use of anticoagulants; Z77.22 Contact with and (suspected) exposure to environmental tobacco smoke (acute) (chronic); I10 Essential (primary) hypertension; E11.9 Type 2 diabetes mellitus without complications
CPT/HCPCS: 36415; 80053; 85025; 85651; 86140; 93971; 97597; 99284; A6252

== ENCOUNTER → 2023-10-27 14:26 | Outpatient (BNVA) | payer MEDICARE, MEDICAID, SELFPAY | PROVIDERS: PCP Nurse Practitioner Family; Visit Provider Thoracic Surgery (Cardiothoracic Vascular Surgery) | DX: E11.621 Type 2 diabetes mellitus with foot ulcer (principal); L97.511 Non-pressure chronic ulcer of other part of right foot limited to breakdown of skin; L97.521 Non-pressure chronic ulcer of other part of left foot limited to breakdown of skin; S80.822A Blister (nonthermal), left lower leg, initial encounter; X58.XXXA Exposure to other specified factors, initial encounter | CPT/HCPCS: 97597; A6251 ==

== ENCOUNTER → 2023-11-03 13:03 | Outpatient (BNVA) | payer MEDICARE, MEDICAID, SELFPAY | PROVIDERS: PCP Nurse Practitioner Family; Visit Provider Thoracic Surgery (Cardiothoracic Vascular Surgery) | DX: E11.52 Type 2 diabetes mellitus with diabetic peripheral angiopathy with gangrene (principal); E11.621 Type 2 diabetes mellitus with foot ulcer; L97.511 Non-pressure chronic ulcer of other part of right foot limited to breakdown of skin; L97.421 Non-pressure chronic ulcer of left heel and midfoot limited to breakdown of skin; E11.622 Type 2 diabetes mellitus with other skin ulcer; L97.821 Non-pressure chronic ulcer of other part of left lower leg limited to breakdown of skin | CPT/HCPCS: 97597; 97598 ==

== ENCOUNTER → 2023-11-10 14:00 | Outpatient (BNVA) | payer MEDICARE, MEDICAID, SELFPAY | PROVIDERS: PCP Nurse Practitioner Family; Visit Provider Thoracic Surgery (Cardiothoracic Vascular Surgery) | DX: E11.52 Type 2 diabetes mellitus with diabetic peripheral angiopathy with gangrene (principal); E11.621 Type 2 diabetes mellitus with foot ulcer; L97.521 Non-pressure chronic ulcer of other part of left foot limited to breakdown of skin; L97.511 Non-pressure chronic ulcer of other part of right foot limited to breakdown of skin; S90.821A Blister (nonthermal), right foot, initial encounter; X58.XXXA Exposure to other specified factors, initial encounter | CPT/HCPCS: 97597 ==

== ENCOUNTER 2023-11-17 14:53 | Outpatient (CLI) | payer MEDICARE, MEDICAID, SELFPAY ==
--- NOTE | 2023-11-17 15:09 | XRR_ITS ---
PROCEDURE INFORMATION: Exam: XR Left Foot Exam date and time: 11/17/2023 3:14 PM Age: 58 years old Clinical indication: Condition or disease; Other: Non-healing diabetic foot ulcer; Prior surgery; Surgery date: 6+ months; Surgery type: Toe amputations; Additional info: Non-healing diabetic foot ulcer; Rule out osteomyelitis TECHNIQUE: Imaging protocol: Radiologic exam of the left foot. Views: 3 or more views. COMPARISON: CR XR foot LT min 3V* [id number] 10/22/2022 3:02 PM FINDINGS: Bones/joints: Multi amputation changes. No radiographic evidence of acute osteomyelitis. No acute fracture or subluxation. Soft tissues: No actue findings. XR/XR foot LT min 3V* [id number] IMPRESSION: No radiographic evidence of acute osteomyelitis.
== END 2023-11-17 14:54 | disposition home or self-care (01) ==
LOC: RAD 14:55
PROVIDERS: PCP Nurse Practitioner Family; Visit Provider Thoracic Surgery (Cardiothoracic Vascular Surgery)
DX: E11.621 Type 2 diabetes mellitus with foot ulcer (principal); L97.509 Non-pressure chronic ulcer of other part of unspecified foot with unspecified severity
CPT/HCPCS: 73630; 97597; A6252

== ENCOUNTER → 2023-11-24 12:57 | Outpatient (BNVA) | payer MEDICARE, MEDICAID, SELFPAY | PROVIDERS: PCP Nurse Practitioner Family; Visit Provider Thoracic Surgery (Cardiothoracic Vascular Surgery) | DX: E11.52 Type 2 diabetes mellitus with diabetic peripheral angiopathy with gangrene (principal); E11.621 Type 2 diabetes mellitus with foot ulcer; L97.511 Non-pressure chronic ulcer of other part of right foot limited to breakdown of skin; L97.521 Non-pressure chronic ulcer of other part of left foot limited to breakdown of skin; Z09 Encounter for follow-up examination after completed treatment for conditions other than malignant neoplasm | CPT/HCPCS: 97597 ==

== ENCOUNTER → 2023-12-01 13:03 | Outpatient (BNVA) | payer MEDICARE, MEDICAID, SELFPAY | PROVIDERS: PCP Nurse Practitioner Family; Visit Provider Thoracic Surgery (Cardiothoracic Vascular Surgery) | DX: E11.52 Type 2 diabetes mellitus with diabetic peripheral angiopathy with gangrene (principal); E11.621 Type 2 diabetes mellitus with foot ulcer; L97.511 Non-pressure chronic ulcer of other part of right foot limited to breakdown of skin; L97.411 Non-pressure chronic ulcer of right heel and midfoot limited to breakdown of skin; L97.521 Non-pressure chronic ulcer of other part of left foot limited to breakdown of skin | CPT/HCPCS: 11042; 97597; A6219 ==

== ENCOUNTER → 2023-12-08 13:59 | Outpatient (BNVA) | payer MEDICARE, MEDICAID, SELFPAY | PROVIDERS: PCP Nurse Practitioner Family; Visit Provider Thoracic Surgery (Cardiothoracic Vascular Surgery) | DX: E11.52 Type 2 diabetes mellitus with diabetic peripheral angiopathy with gangrene (principal); E11.621 Type 2 diabetes mellitus with foot ulcer; L97.521 Non-pressure chronic ulcer of other part of left foot limited to breakdown of skin; L97.421 Non-pressure chronic ulcer of left heel and midfoot limited to breakdown of skin | CPT/HCPCS: 97597; A6251 ==

== ENCOUNTER → 2023-12-15 14:14 | Outpatient (BNVA) | payer MEDICARE, MEDICAID, SELFPAY | PROVIDERS: PCP Nurse Practitioner Family; Visit Provider Thoracic Surgery (Cardiothoracic Vascular Surgery) | DX: E11.52 Type 2 diabetes mellitus with diabetic peripheral angiopathy with gangrene (principal); E11.621 Type 2 diabetes mellitus with foot ulcer; L97.521 Non-pressure chronic ulcer of other part of left foot limited to breakdown of skin; L97.421 Non-pressure chronic ulcer of left heel and midfoot limited to breakdown of skin; L97.511 Non-pressure chronic ulcer of other part of right foot limited to breakdown of skin | CPT/HCPCS: 97597; A6251 ==

== ENCOUNTER → 2023-12-22 12:55 | Outpatient (BNVA) | payer MEDICARE, MEDICAID, SELFPAY | PROVIDERS: PCP Nurse Practitioner Family; Visit Provider Thoracic Surgery (Cardiothoracic Vascular Surgery) | DX: E11.52 Type 2 diabetes mellitus with diabetic peripheral angiopathy with gangrene (principal); E11.621 Type 2 diabetes mellitus with foot ulcer; L97.521 Non-pressure chronic ulcer of other part of left foot limited to breakdown of skin; L97.421 Non-pressure chronic ulcer of left heel and midfoot limited to breakdown of skin; L97.511 Non-pressure chronic ulcer of other part of right foot limited to breakdown of skin | CPT/HCPCS: 97597 ==

== ENCOUNTER → 2023-12-29 13:48 | Outpatient (BNVA) | payer MEDICARE, MEDICAID, SELFPAY | PROVIDERS: PCP Nurse Practitioner Family; Visit Provider Thoracic Surgery (Cardiothoracic Vascular Surgery) | DX: E11.52 Type 2 diabetes mellitus with diabetic peripheral angiopathy with gangrene (principal); E11.621 Type 2 diabetes mellitus with foot ulcer; L97.511 Non-pressure chronic ulcer of other part of right foot limited to breakdown of skin; L97.421 Non-pressure chronic ulcer of left heel and midfoot limited to breakdown of skin; L97.521 Non-pressure chronic ulcer of other part of left foot limited to breakdown of skin | CPT/HCPCS: 97597; A6251 ==

== ENCOUNTER → 2024-01-05 13:34 | Outpatient (BNVA) | payer MEDICARE, MEDICAID, SELFPAY | PROVIDERS: PCP Nurse Practitioner Family; Visit Provider Thoracic Surgery (Cardiothoracic Vascular Surgery) | DX: E11.52 Type 2 diabetes mellitus with diabetic peripheral angiopathy with gangrene (principal); E11.621 Type 2 diabetes mellitus with foot ulcer; L97.521 Non-pressure chronic ulcer of other part of left foot limited to breakdown of skin; L97.421 Non-pressure chronic ulcer of left heel and midfoot limited to breakdown of skin; L97.411 Non-pressure chronic ulcer of right heel and midfoot limited to breakdown of skin | CPT/HCPCS: 97597 ==

== ENCOUNTER → 2024-01-15 09:48 | Outpatient (BNVA) | payer MEDICARE, MEDICAID, SELFPAY | PROVIDERS: PCP Nurse Practitioner Family; Visit Provider Thoracic Surgery (Cardiothoracic Vascular Surgery) | DX: E11.52 Type 2 diabetes mellitus with diabetic peripheral angiopathy with gangrene (principal); E11.621 Type 2 diabetes mellitus with foot ulcer; L97.511 Non-pressure chronic ulcer of other part of right foot limited to breakdown of skin; L97.421 Non-pressure chronic ulcer of left heel and midfoot limited to breakdown of skin; L97.521 Non-pressure chronic ulcer of other part of left foot limited to breakdown of skin | CPT/HCPCS: 97597; A6251 ==

== ENCOUNTER → 2024-02-04 15:11 | Outpatient (BNVA) | payer MEDICARE, MEDICAID, SELFPAY | PROVIDERS: PCP Nurse Practitioner Family; Visit Provider Thoracic Surgery (Cardiothoracic Vascular Surgery) | DX: E11.52 Type 2 diabetes mellitus with diabetic peripheral angiopathy with gangrene (principal); E11.621 Type 2 diabetes mellitus with foot ulcer; L97.511 Non-pressure chronic ulcer of other part of right foot limited to breakdown of skin; L97.421 Non-pressure chronic ulcer of left heel and midfoot limited to breakdown of skin; L97.521 Non-pressure chronic ulcer of other part of left foot limited to breakdown of skin | CPT/HCPCS: 97597 ==

== ENCOUNTER → 2024-02-11 09:15 | Outpatient (BNVA) | payer MEDICARE, MEDICAID, SELFPAY | PROVIDERS: PCP Nurse Practitioner Family; Visit Provider Thoracic Surgery (Cardiothoracic Vascular Surgery) | DX: E11.52 Type 2 diabetes mellitus with diabetic peripheral angiopathy with gangrene (principal); E11.621 Type 2 diabetes mellitus with foot ulcer; L97.511 Non-pressure chronic ulcer of other part of right foot limited to breakdown of skin; L97.421 Non-pressure chronic ulcer of left heel and midfoot limited to breakdown of skin; L97.521 Non-pressure chronic ulcer of other part of left foot limited to breakdown of skin | CPT/HCPCS: 97597 ==

== ENCOUNTER → 2024-02-18 09:35 | Outpatient (BNVA) | payer MEDICARE, MEDICAID, SELFPAY | PROVIDERS: PCP Nurse Practitioner Family; Visit Provider Thoracic Surgery (Cardiothoracic Vascular Surgery) | DX: E11.52 Type 2 diabetes mellitus with diabetic peripheral angiopathy with gangrene (principal); E11.621 Type 2 diabetes mellitus with foot ulcer; L97.511 Non-pressure chronic ulcer of other part of right foot limited to breakdown of skin; L97.521 Non-pressure chronic ulcer of other part of left foot limited to breakdown of skin; Z09 Encounter for follow-up examination after completed treatment for conditions other than malignant neoplasm | CPT/HCPCS: 97597 ==

== ENCOUNTER → 2024-02-25 10:11 | Outpatient (BNVA) | payer MEDICARE, MEDICAID, SELFPAY | PROVIDERS: PCP Nurse Practitioner Family; Visit Provider Thoracic Surgery (Cardiothoracic Vascular Surgery) | DX: E11.52 Type 2 diabetes mellitus with diabetic peripheral angiopathy with gangrene (principal); E11.621 Type 2 diabetes mellitus with foot ulcer; L97.511 Non-pressure chronic ulcer of other part of right foot limited to breakdown of skin; L97.521 Non-pressure chronic ulcer of other part of left foot limited to breakdown of skin | CPT/HCPCS: 97597 ==

== ENCOUNTER → 2024-02-29 14:45 | Outpatient (BNVA) | payer MEDICARE, MEDICAID, SELFPAY | PROVIDERS: PCP Nurse Practitioner Family; Visit Provider Thoracic Surgery (Cardiothoracic Vascular Surgery) | DX: E11.52 Type 2 diabetes mellitus with diabetic peripheral angiopathy with gangrene (principal); E11.621 Type 2 diabetes mellitus with foot ulcer; L97.511 Non-pressure chronic ulcer of other part of right foot limited to breakdown of skin; L97.521 Non-pressure chronic ulcer of other part of left foot limited to breakdown of skin | CPT/HCPCS: 29445 ==

== ENCOUNTER 2024-03-07 15:56 | Outpatient (CLI) | payer MEDICARE, MEDICAID, SELFPAY ==
--- NOTE | 2024-03-07 16:11 | XRR_ITS ---
PROCEDURE INFORMATION: Exam: XR Left Foot Exam date and time: 03/07/2024 4:26 PM Age: 58 years old Clinical indication: Toe amputations; New diabetic foot ulcer, plantar calcaneal wound TECHNIQUE: Imaging protocol: Radiologic exam of the left foot. Views: 3 or more views. COMPARISON: CR XR foot LT min 3V* [id number] 11/17/2023 3:14 PM FINDINGS: Bones/joints: There has been amputation at the 1st, 2nd, and 4th digits at the level of the metatarsal phalangeal joints. Amputation of the 3rd digit at the level of the base of the 1st proximal phalanx. Amputation of the 5th digit at the level of the mid metatarsal. Multi articular mild joint space narrowing. Enthesophytes are present off the os calcis at the Achilles insertion and plantar fascia origin. Soft tissues: There is edema in the soft tissues. Plantar soft tissues are obscured by an overlying sock or bandage. There is contour abnormality of the plantar soft tissues of the hindfoot consistent with the history of ulcer. There are benign-appearing soft tissue calcifications. XR/XR foot LT min 3V* [id number] IMPRESSION: 1. There is contour abnormality of the plantar soft tissues of the hindfoot consistent with the history of ulcer. 2. There is edema in the soft tissues.
== END 2024-03-07 15:57 | disposition home or self-care (01) ==
LOC: RAD 15:58
PROVIDERS: PCP Nurse Practitioner Family; Visit Provider Thoracic Surgery (Cardiothoracic Vascular Surgery)
DX: E11.621 Type 2 diabetes mellitus with foot ulcer (principal); Z89.422 Acquired absence of other left toe(s); R93.89 Abnormal findings on diagnostic imaging of other specified body structures; M61.9 Calcification and ossification of muscle, unspecified
CPT/HCPCS: 73630; 97597

== ENCOUNTER → 2024-03-14 13:17 | Outpatient (BNVA) | payer MEDICARE, MEDICAID, SELFPAY | PROVIDERS: PCP Nurse Practitioner Family; Visit Provider Thoracic Surgery (Cardiothoracic Vascular Surgery) | DX: E11.52 Type 2 diabetes mellitus with diabetic peripheral angiopathy with gangrene (principal); E11.621 Type 2 diabetes mellitus with foot ulcer; L89.622 Pressure ulcer of left heel, stage 2; L97.521 Non-pressure chronic ulcer of other part of left foot limited to breakdown of skin; L97.511 Non-pressure chronic ulcer of other part of right foot limited to breakdown of skin | CPT/HCPCS: 97597 ==

== ENCOUNTER → 2024-03-28 10:06 | Outpatient (BNVA) | payer MEDICARE, MEDICAID, SELFPAY | PROVIDERS: PCP Nurse Practitioner Family; Visit Provider Thoracic Surgery (Cardiothoracic Vascular Surgery) | DX: L97.821 Non-pressure chronic ulcer of other part of left lower leg limited to breakdown of skin (principal) | CPT/HCPCS: 97597 ==

== ENCOUNTER → 2024-04-04 10:34 | Outpatient (BNVA) | payer MEDICARE, MEDICAID, SELFPAY | PROVIDERS: PCP Nurse Practitioner Family; Visit Provider Thoracic Surgery (Cardiothoracic Vascular Surgery) | DX: E11.52 Type 2 diabetes mellitus with diabetic peripheral angiopathy with gangrene (principal); E11.621 Type 2 diabetes mellitus with foot ulcer; L89.622 Pressure ulcer of left heel, stage 2; L97.511 Non-pressure chronic ulcer of other part of right foot limited to breakdown of skin; L97.521 Non-pressure chronic ulcer of other part of left foot limited to breakdown of skin | CPT/HCPCS: 97597; A6237; A6250 ==

== ENCOUNTER → 2024-04-12 13:00 | Outpatient (BNVA) | payer MEDICARE, MEDICAID, SELFPAY | PROVIDERS: PCP Nurse Practitioner Family; Visit Provider Thoracic Surgery (Cardiothoracic Vascular Surgery) | DX: E11.52 Type 2 diabetes mellitus with diabetic peripheral angiopathy with gangrene (principal); E11.621 Type 2 diabetes mellitus with foot ulcer; L97.521 Non-pressure chronic ulcer of other part of left foot limited to breakdown of skin; L97.421 Non-pressure chronic ulcer of left heel and midfoot limited to breakdown of skin | CPT/HCPCS: 97597; A6210 ==

== ENCOUNTER → 2024-04-18 09:17 | Outpatient (BNVA) | payer MEDICARE, MEDICAID, SELFPAY | PROVIDERS: PCP Nurse Practitioner Family; Visit Provider Thoracic Surgery (Cardiothoracic Vascular Surgery) | DX: E11.52 Type 2 diabetes mellitus with diabetic peripheral angiopathy with gangrene (principal); E11.621 Type 2 diabetes mellitus with foot ulcer; L97.521 Non-pressure chronic ulcer of other part of left foot limited to breakdown of skin; L89.621 Pressure ulcer of left heel, stage 1; L97.511 Non-pressure chronic ulcer of other part of right foot limited to breakdown of skin | CPT/HCPCS: 97597; A6210 ==

== ENCOUNTER → 2024-04-25 12:56 | Outpatient (BNVA) | payer MEDICARE, MEDICAID, SELFPAY | PROVIDERS: PCP Nurse Practitioner Family; Visit Provider Thoracic Surgery (Cardiothoracic Vascular Surgery) | DX: E11.52 Type 2 diabetes mellitus with diabetic peripheral angiopathy with gangrene (principal); E11.621 Type 2 diabetes mellitus with foot ulcer; L97.511 Non-pressure chronic ulcer of other part of right foot limited to breakdown of skin; L97.521 Non-pressure chronic ulcer of other part of left foot limited to breakdown of skin; L89.622 Pressure ulcer of left heel, stage 2 | CPT/HCPCS: 97597 ==

== ENCOUNTER → 2024-05-02 10:15 | Outpatient (BNVA) | payer MEDICARE, MEDICAID, SELFPAY | PROVIDERS: PCP Nurse Practitioner Family; Visit Provider Thoracic Surgery (Cardiothoracic Vascular Surgery) | DX: E11.52 Type 2 diabetes mellitus with diabetic peripheral angiopathy with gangrene (principal); E11.621 Type 2 diabetes mellitus with foot ulcer; L97.521 Non-pressure chronic ulcer of other part of left foot limited to breakdown of skin; L97.511 Non-pressure chronic ulcer of other part of right foot limited to breakdown of skin; L89.622 Pressure ulcer of left heel, stage 2 | CPT/HCPCS: 97597; A6213 ==

== ENCOUNTER → 2024-05-09 14:15 | Outpatient (BNVA) | payer MEDICARE, MEDICAID, SELFPAY | PROVIDERS: PCP Nurse Practitioner Family; Visit Provider Thoracic Surgery (Cardiothoracic Vascular Surgery) | DX: E11.52 Type 2 diabetes mellitus with diabetic peripheral angiopathy with gangrene (principal); E11.621 Type 2 diabetes mellitus with foot ulcer; L97.511 Non-pressure chronic ulcer of other part of right foot limited to breakdown of skin; L97.521 Non-pressure chronic ulcer of other part of left foot limited to breakdown of skin; L97.422 Non-pressure chronic ulcer of left heel and midfoot with fat layer exposed | CPT/HCPCS: 97597; A6212 ×2 ==

== ENCOUNTER → 2024-05-16 14:30 | Outpatient (BNVA) | payer MEDICARE, MEDICAID, SELFPAY | PROVIDERS: PCP Nurse Practitioner Family; Visit Provider Thoracic Surgery (Cardiothoracic Vascular Surgery) | DX: E11.52 Type 2 diabetes mellitus with diabetic peripheral angiopathy with gangrene (principal); E11.621 Type 2 diabetes mellitus with foot ulcer; L97.511 Non-pressure chronic ulcer of other part of right foot limited to breakdown of skin; L97.521 Non-pressure chronic ulcer of other part of left foot limited to breakdown of skin; Z09 Encounter for follow-up examination after completed treatment for conditions other than malignant neoplasm | CPT/HCPCS: 97597; A6212 ×2 ==

== ENCOUNTER → 2024-05-24 13:41 | Outpatient (BNVA) | payer MEDICARE, MEDICAID, SELFPAY | PROVIDERS: PCP Nurse Practitioner Family; Visit Provider Thoracic Surgery (Cardiothoracic Vascular Surgery) | DX: E11.52 Type 2 diabetes mellitus with diabetic peripheral angiopathy with gangrene (principal); E11.621 Type 2 diabetes mellitus with foot ulcer; L97.511 Non-pressure chronic ulcer of other part of right foot limited to breakdown of skin; L97.521 Non-pressure chronic ulcer of other part of left foot limited to breakdown of skin | CPT/HCPCS: 97597; A6210 ==

== ENCOUNTER → 2024-05-27 09:35 | Outpatient (BNVA) | payer MEDICARE, MEDICAID, SELFPAY | PROVIDERS: PCP Nurse Practitioner Family; Visit Provider Thoracic Surgery (Cardiothoracic Vascular Surgery) | DX: E11.52 Type 2 diabetes mellitus with diabetic peripheral angiopathy with gangrene (principal); E11.621 Type 2 diabetes mellitus with foot ulcer; L97.511 Non-pressure chronic ulcer of other part of right foot limited to breakdown of skin; L97.521 Non-pressure chronic ulcer of other part of left foot limited to breakdown of skin; L97.421 Non-pressure chronic ulcer of left heel and midfoot limited to breakdown of skin | CPT/HCPCS: 29445; 97597; A6212 ==

== ENCOUNTER → 2024-05-31 09:57 | Outpatient (BNVA) | payer MEDICARE, MEDICAID, SELFPAY | PROVIDERS: PCP Nurse Practitioner Family; Visit Provider Thoracic Surgery (Cardiothoracic Vascular Surgery) | DX: E11.52 Type 2 diabetes mellitus with diabetic peripheral angiopathy with gangrene (principal); E11.621 Type 2 diabetes mellitus with foot ulcer; L97.511 Non-pressure chronic ulcer of other part of right foot limited to breakdown of skin; L97.421 Non-pressure chronic ulcer of left heel and midfoot limited to breakdown of skin; L97.521 Non-pressure chronic ulcer of other part of left foot limited to breakdown of skin | CPT/HCPCS: 97597; A6210 ==

== ENCOUNTER → 2024-06-06 14:43 | Outpatient (BNVA) | payer MEDICARE, MEDICAID, SELFPAY | PROVIDERS: PCP Nurse Practitioner Family; Visit Provider Thoracic Surgery (Cardiothoracic Vascular Surgery) | DX: E11.52 Type 2 diabetes mellitus with diabetic peripheral angiopathy with gangrene (principal); E11.621 Type 2 diabetes mellitus with foot ulcer; L97.512 Non-pressure chronic ulcer of other part of right foot with fat layer exposed; L97.421 Non-pressure chronic ulcer of left heel and midfoot limited to breakdown of skin; L97.521 Non-pressure chronic ulcer of other part of left foot limited to breakdown of skin | CPT/HCPCS: 11055; 97597 ==

== ENCOUNTER → 2024-06-15 15:09 | Outpatient (BNVA) | payer MEDICARE, MEDICAID, SELFPAY | PROVIDERS: PCP Nurse Practitioner Family; Visit Provider Thoracic Surgery (Cardiothoracic Vascular Surgery) | DX: E11.621 Type 2 diabetes mellitus with foot ulcer (principal); E11.52 Type 2 diabetes mellitus with diabetic peripheral angiopathy with gangrene; L97.511 Non-pressure chronic ulcer of other part of right foot limited to breakdown of skin; L97.521 Non-pressure chronic ulcer of other part of left foot limited to breakdown of skin | CPT/HCPCS: 11042; 87070; 87075; 87077; 87176; 87186; 87205; 97597 ==

== ENCOUNTER → 2024-06-22 14:22 | Outpatient (BNVA) | payer MEDICARE, MEDICAID, SELFPAY | PROVIDERS: PCP Nurse Practitioner Family; Visit Provider Thoracic Surgery (Cardiothoracic Vascular Surgery) | DX: E11.52 Type 2 diabetes mellitus with diabetic peripheral angiopathy with gangrene (principal); E11.621 Type 2 diabetes mellitus with foot ulcer; L97.511 Non-pressure chronic ulcer of other part of right foot limited to breakdown of skin; L97.521 Non-pressure chronic ulcer of other part of left foot limited to breakdown of skin | CPT/HCPCS: 11042; 97597; A6212; A6251 ==

== ENCOUNTER → 2024-06-29 10:02 | Outpatient (BNVA) | payer MEDICARE, MEDICAID, SELFPAY | PROVIDERS: PCP Nurse Practitioner Family; Visit Provider Thoracic Surgery (Cardiothoracic Vascular Surgery) | DX: E11.52 Type 2 diabetes mellitus with diabetic peripheral angiopathy with gangrene (principal); E11.621 Type 2 diabetes mellitus with foot ulcer; L97.512 Non-pressure chronic ulcer of other part of right foot with fat layer exposed; L97.522 Non-pressure chronic ulcer of other part of left foot with fat layer exposed | CPT/HCPCS: 11042; 87070; 87176; 87205; A6212 ==

== ENCOUNTER → 2024-07-06 10:13 | Outpatient (BNVA) | payer MEDICARE, MEDICAID, SELFPAY | PROVIDERS: PCP Nurse Practitioner Family; Visit Provider Thoracic Surgery (Cardiothoracic Vascular Surgery) | DX: E11.52 Type 2 diabetes mellitus with diabetic peripheral angiopathy with gangrene (principal); E11.621 Type 2 diabetes mellitus with foot ulcer; L97.512 Non-pressure chronic ulcer of other part of right foot with fat layer exposed; L97.521 Non-pressure chronic ulcer of other part of left foot limited to breakdown of skin | CPT/HCPCS: 11042; 97597; A6210; A6251 ==

== ENCOUNTER → 2024-07-14 10:18 | Outpatient (BNVA) | payer MEDICARE, MEDICAID, SELFPAY | PROVIDERS: PCP Nurse Practitioner Family | DX: E11.621 Type 2 diabetes mellitus with foot ulcer (principal); L97.512 Non-pressure chronic ulcer of other part of right foot with fat layer exposed; E11.52 Type 2 diabetes mellitus with diabetic peripheral angiopathy with gangrene; L97.522 Non-pressure chronic ulcer of other part of left foot with fat layer exposed | CPT/HCPCS: 11042; 87070; 87075; 87205; A6210 ==

== ENCOUNTER → 2024-07-21 14:36 | Outpatient (BNVA) | payer MEDICARE, MEDICAID, SELFPAY | PROVIDERS: PCP Nurse Practitioner Family; Visit Provider Thoracic Surgery (Cardiothoracic Vascular Surgery) | DX: E11.52 Type 2 diabetes mellitus with diabetic peripheral angiopathy with gangrene (principal); E11.621 Type 2 diabetes mellitus with foot ulcer; L97.512 Non-pressure chronic ulcer of other part of right foot with fat layer exposed; L97.422 Non-pressure chronic ulcer of left heel and midfoot with fat layer exposed; L97.521 Non-pressure chronic ulcer of other part of left foot limited to breakdown of skin | CPT/HCPCS: 11042; 87070; 87176; 87205; 97597; A6210 ==

== ENCOUNTER → 2024-07-27 14:46 | Outpatient (BNVA) | payer MEDICARE, MEDICAID, SELFPAY | PROVIDERS: PCP Nurse Practitioner Family; Visit Provider Thoracic Surgery (Cardiothoracic Vascular Surgery) | DX: E11.52 Type 2 diabetes mellitus with diabetic peripheral angiopathy with gangrene (principal); E11.621 Type 2 diabetes mellitus with foot ulcer; L97.422 Non-pressure chronic ulcer of left heel and midfoot with fat layer exposed; L97.511 Non-pressure chronic ulcer of other part of right foot limited to breakdown of skin; L97.521 Non-pressure chronic ulcer of other part of left foot limited to breakdown of skin | CPT/HCPCS: 11042; 97597 ==

== ENCOUNTER → 2024-08-03 14:57 | Outpatient (BNVA) | payer MEDICARE, MEDICAID, SELFPAY | PROVIDERS: PCP Nurse Practitioner Family; Visit Provider Thoracic Surgery (Cardiothoracic Vascular Surgery) | DX: E11.52 Type 2 diabetes mellitus with diabetic peripheral angiopathy with gangrene (principal); E11.621 Type 2 diabetes mellitus with foot ulcer; L97.422 Non-pressure chronic ulcer of left heel and midfoot with fat layer exposed; L97.511 Non-pressure chronic ulcer of other part of right foot limited to breakdown of skin; L97.521 Non-pressure chronic ulcer of other part of left foot limited to breakdown of skin | CPT/HCPCS: 11042; 97597 ==

== ENCOUNTER → 2024-08-10 14:17 | Outpatient (BNVA) | payer MEDICARE, MEDICAID, SELFPAY | PROVIDERS: PCP Nurse Practitioner Family; Visit Provider Thoracic Surgery (Cardiothoracic Vascular Surgery) | DX: E11.52 Type 2 diabetes mellitus with diabetic peripheral angiopathy with gangrene (principal); E11.621 Type 2 diabetes mellitus with foot ulcer; L97.522 Non-pressure chronic ulcer of other part of left foot with fat layer exposed; L97.511 Non-pressure chronic ulcer of other part of right foot limited to breakdown of skin; L97.421 Non-pressure chronic ulcer of left heel and midfoot limited to breakdown of skin | CPT/HCPCS: 11042; 97597 ==

== ENCOUNTER → 2024-08-17 13:33 | Outpatient (BNVA) | payer MEDICARE, MEDICAID, SELFPAY | PROVIDERS: PCP Nurse Practitioner Family; Visit Provider Thoracic Surgery (Cardiothoracic Vascular Surgery) | DX: E11.621 Type 2 diabetes mellitus with foot ulcer (principal); E11.52 Type 2 diabetes mellitus with diabetic peripheral angiopathy with gangrene; L97.422 Non-pressure chronic ulcer of left heel and midfoot with fat layer exposed; L97.511 Non-pressure chronic ulcer of other part of right foot limited to breakdown of skin; L97.524 Non-pressure chronic ulcer of other part of left foot with necrosis of bone | CPT/HCPCS: 11042; 11044; 87070; 87176; 87205; 97597; A6251 ==

== ENCOUNTER 2024-08-22 12:21 | Inpatient (IN) | payer MEDICARE, MEDICAID, SELFPAY ==
[2024-08-22 13:03] VITALS: BP 134/80; PULSE 90; RESP 18; TEMP 36.6; O2SAT 99
--- NOTE | 2024-08-22 13:07 | P.HP_ITS ---
Providers/Chief Complaint Admitting Physician: Steve Valladares Primary Care Provider: Jacinda Dutta NP Chief Complaint: observation History of Present Illness Pleasant 59-year-old gentleman with history of diabetes on long-acting insulin and Ozempic with prior history of diabetic foot wounds, amputations, been following with wound care. Has had a small ulceration of plantar right foot which has been under control, where is his left foot wounds have started giving him more problems. He has developed more purulent drainage from left lateral ulcer, as well as with redness, swelling of the distal left foot, with swelling tracking up into distal left leg. He denies fever or chills reports has had some sneezing, headache and mild cough. He does have history of MRSA infection. MRI was initially ordered for him for tomorrow, however, given significant swelling, erythema, drainage, depth of the wound and purulent debris he was referred for direct admission to the hospital. Review of Systems Const: Denies: fever(s), chills, body aches or malaise ENMT: Denies: throat pain Card: Denies: chest pain, edema, pre-syncope or dyspnea on exertion Resp: Denies: dyspnea, productive cough, change in phlegm color or hemoptysis GI: Denies: abdominal pain, nausea, vomiting, diarrhea, constipation, hematochezia or melena : Denies: flank pain, difficulty urinating, urinary frequency or hematuria Musc: Reports: extremity swelling; Denies: back pain or joint swelling Skin/Breast: Reports: erythema, skin swelling, changing lesions and non- healing lesions Neuro: Denies: headache(s) or confusion Endo: Denies: polyuria or polydipsia Medications/Allergies Home Medications Medication Instructions Recorded Confirmed Last Taken Type apixaban 5 mg tablet (Eliquis) 5 mg PO BID 04/20/20 08/22/24 10/20/23 History metformin 500 mg tablet 500 mg PO BID 04/20/20 08/22/24 10/20/23 History atorvastatin 40 mg tablet 40 mg PO DAILY 10/20/23 08/22/24 10/20/23 History lisinopril 10 mg tablet 10 mg PO DAILY 10/20/23 08/22/24 10/20/23 History semaglutide 2 mg/dose (8 mg/3 mL) 2 mg SUBCUT Q7D 08/22/24 08/22/24 Unknown History subcutaneous pen injector (Ozempic) sulfamethoxazole 800 1 tab PO BID #20 tabs 08/22/24 08/22/24 Unknown Rx mg-trimethoprim 160 mg tablet (Bactrim DS) Allergies Allergy/AdvReac Type Severity Reaction Status Date / Time No Known Allergies Allergy Verified 07/24/21 15:14 PFSH Acute PFSH: Medical History Knowledge deficit on leg surgery leg opened with drain placement due to infection A-fib Amputation of one or more toes Hypertension Insulin dependent diabetes mellitus Acute cystitis without hematuria Acute urinary retention Surgical History History of cholecystectomy S/P debridement thigh and foot H/O amputation all toes S/P cholecystectomy Family History Father , at age 60 Myocardial infarction (lateral wall) Mother , at age 73 Diabetes Social History Second hand smoke exposure: Yes Alcohol intake: never Substance/Drug Use: never Caregiver/support person: Yes Lives independently: No Household members: family Housing: House Marital status: Single Number of children: 0 Highest education level completed: Some College, No Degree service: No Current occupational status: disabled Vitals/I&O/Wt Last Vital Signs O2 Del Method Room Air 08/22/24 12:30 Weight last 48 hrs Weight 104.326 kg Physical Exam Const: COMMON NORMALS: patient oriented x3 and alert GENERAL APPEARANCE: cooperative ORIENTATION/CONSCIOUSNESS: Yes awake HENMT: COMMON NORMALS: oropharynx normal Neck/C-Spine: COMMON NORMALS: no JVD Resp: COMMON NORMALS: normal respiratory effort and clear to auscultation bilaterally AUSCULTATION: clear to auscultation bilaterally Cardio: COMMON NORMALS: no JVD, regular rhythm, S1 normal heart sound present, S2 normal heart sound present and No murmurs present (Cardio) RHYTHM: regular rhythm HEART SOUNDS: S1 normal heart sound present and S2 normal heart sound present GI: COMMON NORMALS: Normal to inspection, nondistended, normoactive bowel sounds present, Soft to palpation and non-tender PALPATION: Yes Soft to palpation Extremity: COMMON NORMALS: no joint enlargement GENERAL: Yes edema (LLE) OTHER: Prior TMA amputations bilaterally. Neuro: COMMON NORMALS: patient oriented x3 and moves all extremities SENSORIUM/ORIENTATION: Yes alert Skin: NARRATIVE SKIN EXAM: Swelling of left lower extremity. Erythema and swelling of distal left foot. Deep ulceration of distal left lateral foot with purulent discharge with a lot of debris with surrounding induration. Left heel ulceration with purulent and bloody discharge. Surrounding induration. Right plantar mid distal foot tiny ulceration. Without surrounding induration. No erythema or swelling of right foot. Prior TMA. A&P Assessment and plan (1) Diabetic infection of left foot: Diabetic foot infection with soft tissue infections of and around chronic wound, cellulitis, suspected possible deeper foot infection and osteomyelitis of the left foot. With swelling, redness, warmth, with open draining ulcerations of the left foot, including left lateral distal foot with deep ulceration down to bone, draining purulent discharge and debris with surrounding tissue swelling. As well as plantar left heel ulceration with purulent and bloody discharge with smaller amount of surrounding swelling. Erythema of distal foot, edema of distal left lower leg. Discussed with wound care provider, reviewed wound care provider note. Requested vitals, CBC, CMP, reviewed. Arterial duplex of right lower extremity from 2022, without arterial occlusion. Requesting arterial duplex and ADAL of left lower extremity. With swelling will assess venous duplex as well as assess for any DVT. Does have history of MRSA. Obtain wound culture. Orthopedic consultation, discussed with orthopedic surgeon, amputation is considered. Will give coverage with cefepime, vancomycin at current time. Monitor for risk of encephalopathy with cefepime. Risk of kidney injury with vancomycin. Reassess chemistry. He otherwise has been close to baseline state of health, although has had some headache, sneezing and mild cough. Will obtain respiratory viral panel. Check A1c. Plan DM2: Continue insulin Lantus, decrease dose to 30 units for now as he will be n.p.o. for anticipated surgical procedure. Sliding scale insulin. POC glucose checks. Consult carbohydrate diet otherwise. HTN: Monitor blood pressures. A-fib: He has not taken his Eliquis in over a week. Hold at current time. Attestations Medical Necessity Statement*: Admission of over 2 midnights anticipated for assessment management of diabetic foot infection is gentleman with hypertension, atrial fibrillation, additional comorbidities. Diagnoses Diabetic infection of left foot E11.628; L08.9
--- NOTE | 2024-08-22 13:33 | USR_ITS ---
PROCEDURE INFORMATION: Exam: US Duplex Left Lower Extremity Arteries Or Arterial Bypass Grafts Exam date and time: 08/22/2024 6:00 PM Age: 59 years old Clinical indication: Condition or disease; Other: Dm; Prior surgery; Surgery date: 6+ months; Surgery type: Toes removed; Additional info: Non-healing wound, assess flow TECHNIQUE: Imaging protocol: Left Real-time duplex scan of the arteries or arterial bypass grafts of the left lower extremity with 2-D rodriguez scale, color Doppler flow and spectral waveform analysis. Images documented and saved. COMPARISON: CR XR foot LT min 3V* [id number] 08/22/2024 3:15 PM FINDINGS: Left common femoral artery: No occlusion or significant stenosis. Normal waveform. Velocity measures 120 cm/s. Left superficial femoral artery: No occlusion or significant stenosis. Normal waveform. Velocity ranges from 113 to 123 cm/s. Left popliteal artery: No occlusion or significant stenosis. Normal waveform. Velocity measures 127 cm/s. Left calf/foot arteries: No occlusion or significant stenosis in the visualized arteries. Only the posterior tibial and dorsalis pedis arteries were visualized. Velocity measures 88 cm/s in the posterior tibial artery and 90 cm/s in the dorsalis pedis artery. Monophasic waveforms were demonstrated. US/[place] [id number] IMPRESSION: 1. Degraded waveforms in the posterior tibial and dorsalis pedis arteries. Remaining calf vessels were not visualized. 2. No evidence for hemodynamically significant stenosis involving the common femoral, superficial femoral, or popliteal arteries.
--- NOTE | 2024-08-22 13:33 | USR_ITS ---
PROCEDURE INFORMATION: Exam: US Duplex Left Lower Extremity Veins, Limited Exam date and time: 08/22/2024 6:06 PM Age: 59 years old Clinical indication: Swelling (edema) of limb; Lower extremity, left; Prior surgery; Surgery date: 6+ months; Surgery type: Toes removed, diabetic PT; Additional info: Swelling, assess for dvt TECHNIQUE: Imaging protocol: Real-time duplex ultrasound of the left extremity with 2-D rodriguez scale, color Doppler flow and spectral waveform analysis including responses to compression and other maneuvers (when performed) with image documentation. Limited exam focused on the left lower extremity veins. COMPARISON: US CV arterial duplex [facility] [id number] 08/22/2024 6:00 PM FINDINGS: Left deep veins: Unremarkable. The common femoral, femoral, proximal profunda femoral and popliteal veins are patent without thrombus. Normal Doppler waveforms. Normal compressibility and/or augmentation response. Superficial veins: Greater saphenous vein at the saphenofemoral junction is patent without thrombus. Soft tissues: Unremarkable. US/CV venous duplex [facility] [id number] IMPRESSION: No evidence of deep vein thrombosis.
[2024-08-22] MEDS: enoxaparin 40 mg/0.4 mL Syringe SUBCUT (13:41)
[2024-08-22 14:16] LABS: Basophils % 0.4 %; Eosinophils # 0.3 10^3/uL (0.0-0.8); Eosinophils % 3.3 %; Hematocrit 38.5 % (37-53); Lymphocytes # 1.6 10^3/uL (0.8-4.8); Lymphocytes % 18.1 %; Mean Corpuscular HGB Conc 31.7 g/dL (30-55); Mean Corpuscular Hemoglobin 28.2 pg (27-33); Mean Corpuscular Volume 88.9 fl (82-101); Mean Platelet Volume 9.5 fL (7.4-10.4); Monocytes # 0.6 10^3/uL (0.2-0.9); Monocytes % 6.5 %; Neutrophils # 6.37 10^3/uL (1.8-7.7); Neutrophils % 70.7 %; Nucleated Red Blood Cells % 0 %; Platelet Count 313 10^3/cmm (157-399); Red Blood Count 4.33 10^6/uL (3.85-5.65); Red Cell Distribution Width 14.2 % (12.1-15.1); White Blood Count 9.02 10^3/uL (3.29-11.43)
[2024-08-22 14:35] LABS: Alanine Aminotransferase 10 U/L (0-41); Alkaline Phosphatase 98 U/L (40-130); Anion Gap 15.7 (5-19); Aspartate Amino Transferase 11 U/L (0-40); Blood Urea Nitrogen 11 mg/dL (8-23); Calcium 7.9 mg/dL (8.5-10.5); Carbon Dioxide 24 mmol/L (22-29); Chloride 96 mmol/L (98-107); Globulin 3.4 g/dL (1.3-4.6); Glucose 239 mg/dL (65-115); Osmolality Calculated 279 mOsm/kg (285-295); Potassium 4.7 mmol/L (3.5-5.1); Sodium 131 mmol/L (136-145); Total Bilirubin 0.2 mg/dL (0.15-1.2); Total Protein 6.4 g/dL (6.6-8.7)
--- NOTE | 2024-08-22 14:45 | PHA.VACGOAL ---
Vancomycin Goal - Goal Vancomycin Goal:: 10-15 mg/L Vancomycin Indication:: SSTI - Therapy Current therapy:: Cefepime Day of therpy:: Day []of [] . Actual body weight (kg): 230 lb - Data Labs: WBC 9.02 10^3/uL (3.29-11.43) 08/22/24 14:01 RBC 4.33 10^6/uL (3.85-5.65) 08/22/24 14:01 Hgb 12.20 g/dL (11.27-16.99) 08/22/24 14:01 Hct 38.5 % (37-53) 08/22/24 14:01 MCV 88.9 fl (82-101) 08/22/24 14:01 MCH 28.2 pg (27-33) 08/22/24 14:01 MCHC 31.7 g/dL (30-55) 08/22/24 14:01 RDW 14.2 % (12.1-15.1) 08/22/24 14:01 Sodium 131 mmol/L (136-145) L 08/22/24 14:01 Potassium 4.7 mmol/L (3.5-5.1) 08/22/24 14:01 Chloride 96 mmol/L (98-107) L 08/22/24 14:01 Carbon Dioxide 24 mmol/L (22-29) 08/22/24 14:01 Anion Gap 15.7 (5-19) 08/22/24 14:01 BUN 11 mg/dL (8-23) 08/22/24 14:01 Creatinine 0.7 mg/dL (0.7-1.2) 08/22/24 14:01 GFR Calculation 115.0 mL/min (90-130) 08/22/24 14:01 Last dialysis session:: N/A Treatment plan:: new consult Regimen:: INITIAL LOADING DOSE OF 1500 MG PER DOSING PROTOCOL MAINTENANCE DOSE OF 1250 MG Q8H Follow up:: WILL CONTINUE TO MONITOR AND FOLLOW UP DAILY
--- NOTE | 2024-08-22 14:53 | PM.CONSULT ---
Providers/Reason For Consult Consulting Physician/Specialty*: Kieran Gray MD, orthopedics Reason for Consult*: Nonhealing ulcer of the left lateral foot with cellulitis extending up into the lower extremity Attending Physician: Steve Valladares Primary Care Provider: Jacinda Dutta NP History of Present Illness History of Present Illness Leo oBnd is a 59 year old male with a long history of diabetes. He has had multiple surgical procedures by podiatry in the past over his bilateral feet. He has had a transmetatarsal amputation of his right foot and still has active ulceration on this foot. More concerning is that he has a left lateral foot ulceration with gross drainage and erythema. He has had toe amputations, all, of the left foot. He has been followed in wound clinic for nonhealing ulcers since this time last year as far back as I can see. He has been in the ED several times for cellulitis of his left lower extremity which has been able to be treated with antibiotics. However, it does not appear that any of his wounds are cleared completely over the course the last year. He was seen in wound care clinic today and was to have an MRI of his foot however due to the extent of the erythema and drainage they have sent the patient over for direct admission in the hospital. Orthopedic consultation has been obtained for evaluation of possible surgical intervention. Should be noted patient's been on oral antibiotics at begin Bactrim DS twice daily Review of Systems General: Reports: 10 or more systems reviewed and unremarkable except in HPI and below Const: Denies: fever(s), chills, body aches or malaise ENMT: Denies: throat pain Card: Denies: chest pain, edema, pre-syncope or dyspnea on exertion Resp: Denies: dyspnea, productive cough, change in phlegm color or hemoptysis GI: Denies: abdominal pain, nausea, vomiting, diarrhea, constipation, hematochezia or melena : Denies: flank pain, difficulty urinating, urinary frequency or hematuria Musc: Reports: extremity swelling; Denies: back pain, joint swelling or joint redness Skin/Breast: Reports: erythema, skin swelling, changing lesions and non-healing lesions; Denies: rash or new lesions Neuro: Denies: headache(s) or confusion Endo: Denies: polyuria or polydipsia Medications/Allergies Home Medications Medication Instructions Recorded Confirmed Last Taken Type apixaban 5 mg tablet (Eliquis) 5 mg PO BID 04/20/20 08/22/24 10/20/23 History metformin 500 mg tablet 500 mg PO BID 04/20/20 08/22/24 10/20/23 History atorvastatin 40 mg tablet 40 mg PO DAILY 10/20/23 08/22/24 10/20/23 History lisinopril 10 mg tablet 10 mg PO DAILY 10/20/23 08/22/24 10/20/23 History semaglutide 2 mg/dose (8 mg/3 mL) 2 mg SUBCUT Q7D 08/22/24 08/22/24 Unknown History subcutaneous pen injector (Ozempic) sulfamethoxazole 800 1 tab PO BID #20 tabs 08/22/24 08/22/24 Unknown Rx mg-trimethoprim 160 mg tablet (Bactrim DS) Allergies Allergy/AdvReac Type Severity Reaction Status Date / Time No Known Allergies Allergy Verified 07/24/21 15:14 Current Medications Generic Name Dose Route Start Last Admin Trade Name Casey PRN Reason Stop Dose Admin Enoxaparin Sodium 40 mg 08/22/24 13:15 08/22/24 13:41 Enoxaparin 40 Mg/0.4 Ml Syringe SUBCUT 40 mg Q24H APOLONIA Administration PFSH Acute PFSH: Medical History Knowledge deficit on leg surgery leg opened with drain placement due to infection A-fib Amputation of one or more toes Hypertension Insulin dependent diabetes mellitus Acute cystitis without hematuria Acute urinary retention Surgical History History of cholecystectomy S/P debridement thigh and foot H/O amputation all toes S/P cholecystectomy Family History Father , at age 60 Myocardial infarction (lateral wall) Mother , at age 73 Diabetes Social History Second hand smoke exposure: Yes Alcohol intake: never Substance/Drug Use: never Caregiver/support person: Yes Lives independently: No Household members: family Housing: House Marital status: Single Number of children: 0 Highest education level completed: Some College, No Degree service: No Current occupational status: disabled Dietary Habits: Current diet type/program: diabetic Vitals/I&O/Wt Last Vital Signs Temp 97.8 F 08/22/24 13:03 Pulse 90 08/22/24 13:03 Resp 18 08/22/24 13:03 BP 134/80 08/22/24 13:03 Pulse Ox 99 08/22/24 13:03 O2 Del Method Room Air 08/22/24 13:03 Weight last 48 hrs Weight 230 lb Physical Exam Narrative: Patient is awake and alert and oriented x 3. He seems understand our conversation at this time and the medical facts that I am discussing. On examination of his left lower extremity he has edema all the way up to the knee with tight shiny skin. He has mottling of erythema also noted there. Dorsum of the foot demonstrates a very ready complexion of the skin patient has absent all of his toes. There is dressing over the distal lateral portion of the the fifth metatarsal region that is pulled back and demonstrates a large ulceration with packing within it this measures approximately 2 cm x 3 cm in length. There is serosanguineous fluid coming from there as well as some exudate appears tannish in color. There also is a nickel size ulceration over the center portion of the plantar surface of the calcaneus. This has some mild bloody drainage from the area and down to subcutaneous tissue. Skin is warm to the touch along the distal tibia and ankle region. Patient has minimal sensation. No complaints of pain or problems. Data 08/22/24 14:01 08/22/24 14:01 A&P Assessment and plan (1) Peripheral vascular disease due to secondary diabetes: (2) Nonhealing ulcer of left lower extremity with fat layer exposed: At this time is quite evident that he has a nonhealing ulcer of his left foot more likely with osteomyelitis possibly of the fifth metatarsal. Patient has been followed in wound clinic for at least a year for these ulcerations and has been to the ED several times for cellulitis of the lower extremity involving this foot and ankle. (3) Diabetic infection of left foot: (4) Cellulitis and abscess of lower extremity: Plan Plan at this time is to treat the patient conservatively while in the hospital with antibiotics and wound care. However, I have had a serious discussion with the patient and feel that a below-knee amputation is the only definitive procedure to be done at this time. I have indicated that I do not believe the debriding this wound for amputating a portion of his foot is pending be of any benefit. I have pointed out that the skin on the dorsum of his foot is quite erythematous and does not appear to be healthy and therefore I would have no good tissue to cover the wound with. He has had multiple procedures on both feet which have only led to continued problems as well as ulcerations and nonhealing wounds. He has had a history of cellulitis to the left lower extremity. It appears that he has cellulitis of his left lower extremity at this time also. He has been on oral antibiotics which has not fend off any type of infection in the area. Therefore at this time I have offered him a below-knee amputation. He would like some time to think about this and discuss with family. I will be available for further discussion if necessary as well as scheduling of surgery if need be. I will obtain x-rays of his foot today. MRI may be proceeded with also Patient meet at this time I have no plans for surgical intervention. However if he decides this evening to have surgery he needs to be made n.p.o. after midnight Coding Level of Care Code Acute Code for [facility] Diagnoses Peripheral vascular disease due to secondary diabetes E13.51 Nonhealing ulcer of left lower extremity with fat layer exposed L97.922 Diabetic infection of left foot E11.628; L08.9 Cellulitis and abscess of lower extremity L03.119; L02.419 Time Spent (min) 45
--- NOTE | 2024-08-22 15:10 | XRR_ITS ---
PROCEDURE INFORMATION: Exam: XR Left Foot Exam date and time: 08/22/2024 3:15 PM Age: 59 years old Clinical indication: Pain; Foot; Left; Prior surgery; Surgery date: 6+ months; Surgery type: Toe amputations; Additional info: Possible osteomyelitis, patient with chronic diabetic ulcers of the left foot TECHNIQUE: Imaging protocol: Radiologic exam of the left foot. Views: 3 or more views. COMPARISON: CR XR foot LT min 3V* [id number] 03/07/2024 4:26 PM FINDINGS: Bones/joints: There has been amputation of the 1st, 2nd, and 4th digits at the level of the metatarsophalangeal joints. There has been amputation of the 3rd digit at the level of the base of the 3rd proximal phalanx. There has been amputation of the 5th digit at the level of the mid to distal metatarsal diaphysis. Similar findings were seen on the prior study. There are moderate-sized plantar and posterior calcaneal spurs. No acute fracture is detected. Soft tissues: There is marked soft tissue edema involving the mid and forefoot. There is soft tissue gas projecting over the soft tissues, particularly surrounding the 4th digit. There appears to be a small plantar ulcer within the heel pad, less pronounced compared to the prior study. XR/XR foot LT min 3V* [id number] IMPRESSION: 1. Amputations of the 1st through 5th digits as described above, stable compared to March 07, 2024. 2. Marked soft tissue edema with soft tissue gas projecting over the soft tissues, particularly surrounding the 4th digit. 3. No definite radiographic evidence for osteomyelitis. If clinically indicated, MRI may be helpful for further evaluation. 4. Probable small plantar soft tissue ulcer within the heel pad, less pronounced compared to the prior study.
[2024-08-22 15:14] VITALS: BP 145/76; PULSE 87; RESP 18; TEMP 36.7; O2SAT 97
[2024-08-22] MEDS: cefepime 2,000 mg SDV 2000 MG IVP (15:23)
[2024-08-22] MEDS: vancomycin 1,500 MG/300 ML PIGGYBACK 200 MG IV (15:35)
[2024-08-22 16:27] LABS: Estmated Average Glucose 252; Hemoglobin A1C 10.4 % (4.0-6.0)
[2024-08-22 16:31] LABS: Glucose Point of Care 190 mg/dL (70-110)
[2024-08-22 20:00] VITALS: BP 145/80; PULSE 92; RESP 18; TEMP 36.8; O2SAT 97
[2024-08-22 21:13] LABS: Glucose Point of Care 296 mg/dL (70-110)
[2024-08-22] MEDS: insulin glargine 100 units/1 mL 30 UNIT SUBCUT (21:19)
[2024-08-22] MEDS: vancomycin 1,250 MG/250 ML PIGGYBACK 166.67 MG IV (23:22)
[2024-08-23] VITALS (7 sets, daily range): BP systolic 113–144; BP diastolic 55–79; PULSE 85–100; RESP 16–18; TEMP 36.5–36.9; O2SAT 94–98
[2024-08-23 01:40] LABS: Adenovirus Not Detected (NOT DETECT); Chlamydia Pneumoniae Not Detected (NOT DETECT); Coronavirus 229E,HKU1,NL63,OC4 Not Detected (NOT DETECT); Human Metapneumovirus Not Detected (NOT DETECT); Human Rhinovirus/Enterovirus Not Detected (NOT DETECT); Influenza A Not Detected (NOT DETECT); Influenza A H1 Not Detected (NOT DETECT); Influenza A H1-2009 Not Detected (NOT DETECT); Influenza A H3 Not Detected (NOT DETECT); Influenza B Not Detected (NOT DETECT); Mycoplasma Pneumoniae Not Detected (NOT DETECT); Parainfluenza Virus Type 1 Not Detected (NOT DETECT); Parainfluenza Virus Type 2 Not Detected (NOT DETECT); Parainfluenza Virus Type 3 Not Detected (NOT DETECT); Parainfluenza Virus Type 4 Not Detected (NOT DETECT); Respiratory Syncytial Virus A Not Detected (NOT DETECT); Respiratory Syncytial Virus B Not Detected (NOT DETECT); SARS-COV-2 Not Detected (NOT DETECT)
[2024-08-23] MEDS: cefepime 2,000 mg SDV 2000 MG IVP ×2 (02:53→14:56)
[2024-08-23 05:26] LABS: Basophils # 0.1 10^3/uL (0.0-0.1); Basophils % 0.7 %; Eosinophils # 0.4 10^3/uL (0.0-0.8); Eosinophils % 5.4 %; Hematocrit 38.8 % (37-53); Lymphocytes # 1.8 10^3/uL (0.8-4.8); Lymphocytes % 23.5 %; Mean Corpuscular Hemoglobin 28.1 pg (27-33); Mean Corpuscular Volume 87.8 fl (82-101); Mean Platelet Volume 9.6 fL (7.4-10.4); Monocytes # 0.6 10^3/uL (0.2-0.9); Monocytes % 7.4 %; Neutrophils # 4.67 10^3/uL (1.8-7.7); Neutrophils % 61.9 %; Nucleated Red Blood Cells % 0 %; Platelet Count 360 10^3/cmm (157-399); Red Blood Count 4.42 10^6/uL (3.85-5.65); Red Cell Distribution Width 14.3 % (12.1-15.1); White Blood Count 7.54 10^3/uL (3.29-11.43)
[2024-08-23 06:25] LABS: Anion Gap 16.2 (5-19); Blood Urea Nitrogen 9 mg/dL (8-23); Calcium 8.5 mg/dL (8.5-10.5); Carbon Dioxide 23 mmol/L (22-29); Chloride 100 mmol/L (98-107); Creatinine Clr Calc Pharmacy 160.9452; Glomerular Filtration Rate 137.4 mL/min (90-130); Glucose 208 mg/dL (65-115); Osmolality Calculated 285 mOsm/kg (285-295); Potassium 4.2 mmol/L (3.5-5.1); Sodium 135 mmol/L (136-145)
[2024-08-23 06:35] LABS: Glucose Point of Care 188 mg/dL (70-110)
[2024-08-23] MEDS: vancomycin 1,250 MG/250 ML PIGGYBACK 166 MG IV (06:47)
--- OUTSIDE RECORDS SUMMARY | 2024-08-23 07:22 | XMS_ITS | Encounter Summary ---
Author Organization [facility] Address [address] [place] [address] Care Team Providers Care Film Examiner Name Role Phone Yuridia Thorpe MD Primary Care Provider Reason for Visit * Reason Onset Date Comments diabetic shoe rx 08/05/2024 Encounter Details Date Type Department Care Team (Late Contact Info) Description 08/05/[address] [phone] Yuridia Thorpe MD [address] [place] [phone] diabetic shoe rx Social History Tobacco Use Types Packs/Day Years Used Date Smoking Tobacco: Never Smokeless Tobacco: Never Alcohol Use Standard Drinks/Week Comments Never 0 (1 standard drink = 0.6 oz pur e alcohol) Feeling Safe Answer Date Recorded Are you in a relationship wi th someone who hurts you emotionally and/or physically? 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 Gender Identity Not on file Sexual Orientation Not on file documented as of this encounter Miscellaneous Notes * Telephone Encounter - Jacqueline Holley LPN - 08/05/2024 7:46 AM INSTRUMENT MAN Diabetic shoes rx RUMENT MAN documented in this encounter Plan of Treatment Upcoming Encounters Date Type Department Care Team (Late Contact Info) Description 08/25/2024 9:00 AM INSTRUMENT MAN Office Visit [facility] Medicine [place] [address] [facility] [address] [phone] Lynda Moran FNP [address] [place] [phone] documented as of this encounter Visit Diagnoses Diagnosis Type 2 diabetes mellitus with diabetic polyneuropathy, with long-term current use of insulin ([facility])- Primary documented in this encounter Care Teams Film Examiner Relationship Specialty Start Date End Date Yuridia Thorpe MD [address] [phone] PCP - General Family Practice 08/04/24 documented as of this encounter
--- OUTSIDE RECORDS SUMMARY | 2024-08-23 07:22 | XMS_ITS | Encounter Summary ---
Author Organization [facility] Address 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 Gender Identity Not on file Sexual Orientation Not on file documented as of this encounter Plan of Treatment Upcoming Encounters Date Type Department Care Team (Late st Contact Info) Description 08/25/2024 9:00 AM AIR TRAFFIC CONTROL EQUIPMENT REPAIRER Office Visit [facility] Family Medicine [place] [address] [facility] [address] [place] [address] [place] [phone] Lynda Moran FNP [address] [facility] [place] [phone] documented as of this encounter Visit Diagnoses Not on filedocumented in this encounter Care Teams Java Support Engineer Relationship Specialty Start Date End Date Yuridia Thorpe MD [address] [facility] [address] [place] [phone] PCP - General Family Practice 08/04/24 documented as of this encounter
--- OUTSIDE RECORDS SUMMARY | 2024-08-23 07:22 | XMS_ITS | Encounter Summary ---
Author Organization [facility] Address 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
--- OUTSIDE RECORDS SUMMARY | 2024-08-23 07:22 | XMS_ITS | Encounter Summary ---
Author Organization [facility] Address [address] [place] [address] Care Team Providers Care Health Therapist Name Role Phone Yuridia Thorpe MD Primary Care Provider Reason for Visit * Reason Comments Diabetes Diabetic Shoe Exam Encounter Details Date Type Department Care Team (Late st Contact Info) Description 08/04/2024 3:00 PM CARDIOTHORACIC SURGEON Office Visit [facility] Medicine [address] [address] Yuridia Thorpe MD [facility] [address] [address] Type 2 diabetes mellitus with diabetic polyneuropathy, with long-term current use of insulin (CMS/HCC) (Primary Dx); Encounter for colorectal cancer screening; Ulcer of foot, chronic, left, with unspecified severity (CMS/HCC) Social History Tobacco Use Types Packs/Day Years [...] on file Legal Sex Male 10:28 PM CARDIOTHORACIC SURGEON Gender Identity Not on file Sexual Orientation Not on file documented as of this encounter Last Filed Vital Signs Vital Sign Reading Time Taken Comments Blood Pressure 136/78 08/04/2024 3:23 PM CARDIOTHORACIC SURGEON Pulse 90 08/04/2024 3:18 PM CARDIOTHORACIC SURGEON Temperature 36.2 ??C (97.1 ??F) 08/04/2024 3:18 PM CS T Respiratory Rate 18 08/04/2024 3:18 PM CARDIOTHORACIC SURGEON Oxygen Saturation 99% 08/04/2024 3:18 PM CARDIOTHORACIC SURGEON Inhaled Oxygen Concentration - - Weight 101.6 kg (224 lb) 08/04/2024 3:18 PM CARDIOTHORACIC SURGEON Height 180.3 cm (5' 11 ) 08/04/2024 3:18 PM CARDIOTHORACIC SURGEON Body Mass Index 31.24 08/04/2024 3:18 PM CARDIOTHORACIC SURGEON documented in this encounter Progress Notes * Yuridia Thorpe MD - 08/04/2024 3:29 PM CST History of Present Illness The patient presents for a diabetic shoe exam. He is here for a diabetic shoe exam, as his current pair is approximately 1.5 years old. He has been under the care of [facility] in [place] but has recently transitioned to the [facility] due toits proximity to his residence. He has been under the care of a labor delivery specialist in [place], where he received bandages for his ulcers yesterday. The plan was to apply a temporary cast to his left leg, similar to the treatment his right leg has been receiving. However, this procedure was postponed until next week due to a scheduling conflict with a CT scan. He has a history of hospitalizations, surgeries, and amputations, primarily involving the toes. He experiences numbness and tingling in his feet, indicative of neuropathy, which also affects his hands. He has been managing active ulcers since 2018, which tend to heal when he is off his feet but recur upon resumption of walking. He is on his feet a few times during the day. 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 He has not seen a vascular surgeon about his amputations, but he has been tested for vascular issues. He has been seeing Dr. Covarrubias. He reports good circulationand significant drainage from his ulcers. He has been dealing with one ulcer intermittently since 2019. HbgA1c 6.7 Leo's most recent labs include the following: Lab Results Component Value Date CHOLTOT 94 06/07/2024 HDL 34 06/07/2024 LDLCALC 36 06/07/2024 TRIGLYCERIDE 124 06/07/2024 Lab Results Component Value Date/Time NA 130 (L) 07/22/2022 05:28 PM K 5.1 07/22/2022 05:28 PM CL 94 (L) 07/22/2022 05:28 PM CO2 23 07/22/2022 05:28 PM BUN 26 (H) 07/22/2022 05:28 PM CREAT 1.04 07/22/2022 05:28 PM GLUCOSE 484 (HH) 07/22/2022 05:28 PM TOTALPROTEIN 7.0 07/22/2022 05:28 PM ALBUMIN 4.0 07/22/2022 05:28 PM BILITOTAL 0.3 07/22/2022 05:28 PM ALKPHOS 130 (H) 07/22/2022 05:28 PM AST 12 07/22/2022 05:28 PM ALT 13 07/22/2022 05:28 PM Lab Results Component Value Date/Time WBC 8.8 05/25/2024 02:29 PM HGB 14.1 05/25/2024 02:29 PM HCT 44.0 05/25/2024 02:29 PM PLT 312 05/25/2024 02:29 PM MCV 87.6 05/25/2024 02:29 PM No results found for: TSH , TSHULTRA , THYROIDSTIM Lab Results Component Value Date/Time HGBA1C 6.7 06/07/2024 12:00 AM Current Outpatient Medications Medication Sig Dispense Refill Insulin Syringe-Needle U-100 0.5 mL 30 gauge x 5/16 Syringe Use 1 syringe daily with LEvemir for Diabetes. lancets Check blood sugars twice daily for Diabetes. Blood-Glucose Meter Kit Use as directed. True Metrix for Diabetes. blood sugar diagnostic Strip Check blood sugars twice daily (True Metrix) for Diabetes. lisinopriL (PRINIVIL) 5 mg tablet Take 5 mg by mouth daily. semaglutide (OZEMPIC SUBCUT) Inject by subcutaneous injection. insulin glargine,hum.rec.anlog (TOUJEO SOLOSTAR U-300 INSULIN SUBCUT) Inject by subcutaneous injection. metFORMIN (GLUCOPHAGE) 500 mg tablet Take 500 mg by mouth 2 times daily with meals. atorvastatin (LIPITOR) 40 mg tablet Take 40 mg by mouth daily. apixaban (ELIQUIS) 5 mg tablet Take by mouth daily. prednisoLONE acetate (PRED FORTE) 1 % suspension INSTILL ONE DROP IN THE LEFT EYE FOUR TIMES DAILY STARTING AFTER PROCEDURE (Patient not taking: Reported on 08/04/2024) No current facility-administered medications for this visit. No Known Allergies Social History Socioeconomic History Marital status: Single Spouse name: Not on file Number of children: Not on file Years of education: Not on file Highest education level: Not on file Occupational History Not on file Tobacco Use Smoking status: Never Smokeless tobacco: Never Vaping Use Vaping status: Never Used Substance and Sexual Activity Alcohol use: Never Drug use: Never Sexual activity: Not on file Other Topics Concern Not on file Social History Narrative Not on file Social Drivers of Health Food Insecurity: Low Risk (10/02/2021) Received from [employer] [employer] Food Insecurity In the past 12 months, did you ever eat less than you felt you should because there wasn???t enoughmoney for food?: Never true Are you currently without food?: Never true Transportation Needs: No Transportation Needs (10/02/2021) Received from [employer] [employer] Transportation Needs In the last 12 months, have you ever had to go without health care because you didn???t have a way to get there?: No Are you unable to find or afford transportation?: Not on file Feeling Safe: Not At Risk (01/19/2024) Feeling Safe Patient has indicated abuse: : No Housing Stability: Low Risk (10/02/2021) Received from [employer] [employer] Housing Stability Are you worried that in the next two months, you may not have stable housing?: No Have you recently, or are you now sleeping in a nursing home or another place not meant for sleeping? : Not on file Past Medical History: Diagnosis Date Atrial fibrillation Decubitus ulcer Diabetes mellitus HTN (hypertension) Neuropathy Vascular disease Review of Systems: As noted in HPI, otherwise negative OBJECTIVE: Vitals: 08/04/24 1523 BP: 136/78 Pulse: Resp: Temp: SpO2: Constitutional: Alert,well appearing and in no distress. Head: Normocephalic. Eyes: EOM are normal. Pupils are equal and round. Cardiovascular: Normal rate, regular rhythm and normal heart sounds. Exam reveals no gallop and no friction rub. No murmur heard. Pulmonary/Chest: Effort normal and breath sounds normal. No respiratory distress. He has no wheezes. He has no rales. Abdominal: Soft. There is no tenderness. Musculoskeletal: No edema in the lower extremities bilaterally Skin: No rash noted. 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 Type 2 diabetes mellitus with diabetic polyneuropathy, with long-term current use of insulin E11.42 250.60 Z79.4 357.2 V58.67 2. Encounter for colorectal cancer screening Z12.11 V76.51 OCCULT BLOOD IMMUNOASSAY, COLORECTAL SCREEN Z12.12 V76.41 3. Ulcer of foot, chronic, left, with unspecified severity L97.529 707.15 Orders Placed This Encounter Fecal Immunochemical Test (FIT) Assessment & Plan 1. Diabetic foot ulcers. He has a history of diabetic foot ulcers, with active ulcers currently being treated by wound care.He reports that the ulcers heal when he is off his feet but recur once he starts walking again. He has been using diabetic shoes for a year and a half and requires a new pair. A prescription for diabetic shoes will be issued through [facility]. 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 2. Neuropathy. He reports experiencing numbness and tingling in his feet and hands, consistent with diabetic neuropathy. No new treatment was discussed during this visit. He should continue to monitor his symptoms and report any significant changes to his healthcare provider. This note was automatically generated by a [employer] AI technology ([employer]), reviewed, edited, and finalized by Yuridia Thorpe MD. The author of this note, patient (or authorized passenger representative), and all other persons present consent to the audio recording of this visit for charting documentation purposes. IOTHORACIC SURGEON * Yuridia Thorpe MD - 08/04/2024 3:17 PM CST Depression Screen Positive: PHQ-2 score >= 3 or PHQ-9 score >= 9 PHQ-2 Total: 0 (08/04/2024 3:17 PM) DEPRESSION PLAN OF CARE His depression screen was negative. (PHQ2 <3, PHQ9 <10, [place] <11) IOTHORACIC SURGEON documented in this encounter Plan of Treatment Upcoming Encounters Date Type Department Care Team (Late st Contact Info) Description 08/25/2024 9:00 AM CARDIOTHORACIC SURGEON Office Visit [facility] [place] [address] [facility] [address] [facility] [place] [phone] Lynda Moran FNP [address] [facility] [place] [address] Scheduled Orders Name Type Priority Associated Diagnoses Orde r Schedule OCCULT BLOOD IMMUNOASSAY, COLORECTAL SCREEN Lab Routine Encounter for colorectal cancer screening Expected: 08/04/2024, Expires: 09/29/2024 documented as of this encounter Visit Diagnoses Diagnosis Type 2 diabetes mellitus with diabetic polyneuropathy, with long-term current use of insulin (CMS/HCC)- Primary Encounter for colorectal cancer screening Special screening for malignant neoplasms, colon Ulcer of foot, chronic, left, with unspecified severity (CMS/HCC) documented in this encounter Care Teams Health Therapist Relationship Specialty Start Date End Date Yuridia Thorpe MD [address] [address] PCP - General Family Practice 08/04/24 documented as of this encounter
--- OUTSIDE RECORDS SUMMARY | 2024-08-23 07:23 | XMS_ITS | Continuity of Care Document ---
Author Organization [facility] Address [address] [place] [address] Phone Care Team Providers Care Milling Operator Name Role Phone Fletcher Cunningham DPM Unavailable Unavailable Procedures Procedure Date Office/outpatient visit est Advance Directives Directive Yes / No Effective Date File Name No Information Encounters Encounter Description Practice Location Reason(s) For Visit Diagnoses Date Provider Providers Copied on Encounter [facility], [address] [place] [address] [place], [id number], tel:[phone] [facility] No Information [address] Oct[address]um. [address] [address], [place], [place], [id number] , [place]. tel:[phone] Referring Provider: Fletcher Jaramillo [address] [address], [place], [address] . tel:[phone] Office/outpat ient visit est [facility], [address] [place], [place] [address], [id number], tel:[phone] [facility] Unspecified local infection of skin and subcutaneous tissueUnspecified essential hypertension [address] Arden Pritchett. [address] [address], [place], [place], [address] , [place]. tel:[phone] Referring Provider: Romy Robb [address] [address], [place], [address] . tel:[phone] Family History Family Member Type Diagnosis Age At Onset No Information Payers Payer name Insurance type Covered libertarian ID Authoriza tion(s) No Information Social History Type Description Quantity Date Captured Comments Sex Male Smoking Status No Information Chief Complaint And Reason For Visit No Information Reason For Referral Reason For Referral No Information History Of Present Illness Encounter Date Complaint History Of Prese nt Illness No Information Functional Status Date Functional Assessmen t No Information Instructions Date Instruction Additional Infor mation No Information Assessments Type Assessment Date No Information Patient Care Teams Name Effective Dates (start - stop) Status Members No Information
--- OUTSIDE RECORDS SUMMARY | 2024-08-23 07:23 | XMS_ITS ---
Author Organization Unknown Vital Signs BpStanding BpSitting BpSupine Date Temperature HeartRate Weight Hei ght Spo2 Respiration Bmi HeadCircumference FieldCount TimeRecorded NeckCircumferen ce WaistCircumference Pulse 113/75 03/07 00:00 :00 98.3 233,9.0 0 5,11 99 16 32.6 00:00 103 130/72 12/02 00:00 :00 98.4 237,3.0 0 5,11 97 18 33.1 00:00 111 105/71 06/07 00:00 :00 97.3 227,2.0 0 5,11 99 18 31.7 00:00 106
--- OUTSIDE RECORDS SUMMARY | 2024-08-23 07:23 | XMS_ITS | Encounter Summary ---
Author Organization [facility] Address 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 Gender Identity Not on file Sexual Orientation Not on file documented as of this encounter Plan of Treatment Upcoming Encounters Date Type Department Care Team (Late st Contact Info) Description 08/25/2024 9:00 AM MINE SUPERINTENDENT Office Visit [facility] [place] [address] [facility] [address] [place] [address] [place] [phone] Lynda Moran FNP [address] [facility] [place] [address] documented as of this encounter Visit Diagnoses Not on filedocumented in this encounter Care Teams Parboiler Relationship Specialty Start Date End Date Yuridia Thorpe MD [address] [facility] [address] [place] [address] PCP - General Family Practice 08/04/24 documented as of this encounter
--- OUTSIDE RECORDS SUMMARY | 2024-08-23 07:23 | XMS_ITS | Continuity of Care Document ---
Author Organization [facility] Address [address] [place] [address] Phone Care Team Providers Care Surveillance Sensor Officer Name Role Phone Lázaro Ruiz MD Unavailable Unavailable Allergies, Adverse Reactions, Alerts Substance Reaction Status Criticality No Known Drug Allergies Active No I nformation Procedures Procedure Date OFFICE/OUTPATIENT VISIT, [facility] FEM/POPL REVAS W/ATHER TIB/PER REVASC W/ATHER X-ray exam, extremity artery, S&I X-ray exam, pelvic arteries, S&I 2018 Ultrasound Guidane Vascular Access Requi ring Ultrasound Eval OFFICE/OUTPATIENT VISIT, [facility] Duplex study, lower extremity artery, li mited Advance Directives Directive Yes / No Effective Date File Name No Information Encounters Encounter Description Practice Location Reason(s) For Visit Diagnoses Date Provider Providers Copied on Encounter [facility] [address], [place], [place], [id number] , [place] tel: [phone] [facility] No Information 0 Joseph Sesay. [address] [place] [address], [address], [place], [place], [address] , [place]. 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 [address], [address], [place], [place], [address] , [place]. tel:[phone] Referring Provider: Lázaro Cee, [address], [place], [address] . tel:[phone] [facility] [address], [place], [place], [address] , [place] tel: [phone] [facility] [place] arteries of extremities w gangrene, right leg Oct- 9 [employer] Powersal. [address], [address], [place], [place], [address] , [place]. tel: [phone] Referring Provider: Lázaro Cee, [address], [place], [address] . tel:[phone] OFFICE/OUTPA TIENT VISIT, [facility] [address], [place], [place], [address] , [place] tel: [phone] [facility] RLE Pressure wound (chief complaint) Elevated BP (chief complaint) PAD Lower (chief complaint) Body mass index (BMI) 32.0-32.9, adultObesity, unspecifiedAthero sclerosis of [place] artery of right lower extremity with gangrene Sep-2 9 Joseph Sesay. [address], [address], [place], [place], [address] , [place]. tel: [phone] Referring Provider: Fany Sher, [address] [facility] [address], [place], [address]. tel:[phone] [facility] [address], [place], [place], [address] , [place] tel:[phone] [facility] [place] arteries of extrm w intrmt violet, right leg Sep-2 - 9 Foster OLD Noemi. [address], [place], [place], [address] , [place]. tel:[phone] Referring Provider: Lázaro Cee, [address], [place], [address] . tel:[phone] [facility], [address], [place], [place], [address] , [place] tel: [phone] [facility] No Information [address], [address], [place], [place], [address] , [place]. tel: [phone] Family History Family Member Type Diagnosis Age At Onset Problem (finding) Family history of strok e Problem (finding) Family history of Diabe pedro mellitus Problem (finding) Family history of Heart Disease Payers Payer name Insurance type Covered libertarian ID Authoriza tion(s) [facility] [id number] Social History Type Description Quantity Date Captured Comments Alcohol Use Details Unknown Caffeine Use Details Unknown Tobacco Use Status No Information Smoking Status No Information Sex Male Chief Complaint And Reason For Visit No Information Reason For Referral Reason For Referral No Information Plan Of Treatment Date Type Action Status Goal Zoster vaccine ( ). Due on due Goal Sigmoidoscopy. Due on due Goal Dilated Eye Exam . Due on due Goal Influenza vaccin e. Due on due Goal Colonoscopy. Due on due Goal FOBT. Due on due Goal Tdap. Due on due Goal Lipid panel. Due on due Goal Depression scree hayder. Due on due Goal Td vaccine. Due on 19 due Goal Zoster vaccine ( ). Due on due Goal Sigmoidoscopy. Due on due Goal Dilated Eye Exam . Due on due Goal Influenza vaccin e. Due on due Goal Colonoscopy. Due on due Goal FOBT. Due on due Goal Tdap. Due on due Goal Lipid panel. Due on due Goal Depression scree hayder. Due on due Goal Td vaccine. Due on due Goal Zoster vaccine ( ). Due on due Goal Sigmoidoscopy. Due on due Goal Dilated Eye Exam . Due on due Goal Influenza vaccin e. Due on due Goal Colonoscopy. Due on due Goal FOBT. Due on due Goal Tdap. Due on due Goal Lipid panel. Due on due Goal Depression scree hayder. Due on due Goal Td vaccine. Due on due Goal Zoster vaccine ( ). Due on due Goal Sigmoidoscopy. Due on due Goal Dilated Eye Exam . Due on due Goal Influenza vaccin e. Due on due Goal Colonoscopy. Due on due Goal FOBT. Due on due Goal Tdap. Due on due Goal Lipid panel. Due on due Goal Depression scree hayder. Due on due Goal Td vaccine. Due on due Future Order: Radiology Order Ro utine EKG W\ Interp And Report [id number] ([id number]), Ordered on: Ordered History Of Present Illness Encounter Date Complaint History Of Prese nt Illness PAD Lower The patient visi ts the office to be evaluated for lower extremity vascular disease. The patient complains of aching of extremity, redness, swelling and weakness of extremity. Additional information: Pt just had surgery 2 weeks ago . He had a bone infection.. PAD Lower The patient visi ts the office to be evaluated for lower extremity vascular disease. The patient complains of aching of extremity, coldness of limb, cramping of extremity, difficulty with ambulation, muscle fatigue, nighttime cramping, numbness of extremity, redness, shiny skin, swelling and ulceration. The location is right foot. The symptoms worsen with ambulation. The patient's [place] category is 6 (grade III, major tissue loss). Elevated BP Patient's blood pressure was elevated at today's visit., we recommended the patient to follow up with the PCP. RLE Pressure wound Pt states he has Bilateral toe amputation back in march of 2018. Pt states his left foot healed afterwards but the right foot has not healed in over a year. Pt states he has wound care with Dr Rick every week. Hx of osteomyelitits. Functional Status Date Functional Assessmen t No Information Instructions Date Instruction Additional Infor edwardo Low Sodium Diet Instruction Low Sodium Diet Instruction Giving encouragement to exercise Related to Body mass index (BMI) 32.0-32.9, adult Assessments Type Assessment Date No Information Patient Care Teams Name Effective Dates (start - stop) Status Members No Information
--- OUTSIDE RECORDS SUMMARY | 2024-08-23 07:23 | XMS_ITS | Clinical Summary ---
Author Organization Narcisa Aguilar [facility] Address [address] [facility] [address] [place] [address] Phone Care Team Providers Care Principal Software Architect Name Role Phone Yuridia Thorpe MD Primary Care Provider Allergies No known active allergies Medications apixaban (ELIQUIS) 5 mg tablet Take by mouth daily. 1 Active metFORMIN (GLUCOPHAGE) 500 mg tablet Take 500 mg by mouth 2 times daily with meals. Active atorvastatin (LIPITOR) 40 mg tablet Take 40 mg by mouth daily. Active lisinopriL (PRINIVIL) 5 mg tablet Take 5 mg by mouth daily. Active semaglutide (OZEMPIC SUBCUT) Inject by subcutaneous injection. Active insulin glargine,hum.r ec.anlog (TOUJEO SOLOSTAR U-300 INSULIN SUBCUT) Inject by subcutaneous injection. Active Insulin Syringe-Needle U-100 0.5 mL 30 gauge x 5/16 Syringe Use 1 syringe daily with LEvemir for Diabetes. 2 Active lancets Check blood sugars twice daily for Diabetes. 2 Active prednisoLONE acetate (PRED FORTE) 1 % suspension INSTILL ONE DROP IN THE LEFT EYE FOUR TIMES DAILY STARTING AFTER PROCEDURE 4 Active Blood-Glucose Meter Kit Use as directed. True Metrix for Diabetes. 2 025 Active blood sugar diagnostic Strip Check blood sugars twice daily (True Metrix) for Diabetes. 2 Active diabetic shoes with insertsIndicat ions:Type 2 diabetes mellitus with diabetic polyneuropathy , with long-term current use of insulin ([facility]) Length of Need: 99 months. Patient has diabetes mellitus and one of the following: history of partial or complete amputation of the foot and foot deformity Patient has diabetes mellitus. Patient is being treated under comprehensive plan for diabetes and the patient needs special shoes because of diabetes. Dispense 1/ year shoe and 3/year inserts, that meets his specific interest. 1 Each 5 025 Active Problems Problem Noted Date Diagnosed Date Declined influenza vaccine 05/25/2024 Encounter for cast removal 01/19/2024 Hyperglycemia due to diabetes mellitus 3 Resolved Problems Problem Noted Date Diagnosed Date Resolved Date Chronic ulcer of right foot with fat layer exposed 01/19/2024 08/04/2024 Encounters Date Type Department Care Team Description 08/16/2024 External Device Data ST[facility] ABSTRACTION Provider, Abstract 08/16/2024 External Device Data [facility] ABSTRACTION Provider, Abstract 08/11/2024 External Device Data [facility] ABSTRACTION Provider, Abstract 08/05/[address] [phone] Yuridia Thorpe MD diabetic shoe rx 08/04/2024 3:00 PM DATA VISUALIZATION DEVELOPER Office Visit [address] [phone] Yuridia Thorpe MD Type 2 diabetes mellitus with diabetic polyneuropathy, with long-term current use of insulin ([facility]) (Primary Dx); Encounter for colorectal cancer screening; Ulcer of foot, chronic, left, with unspecified severity (CMS/HCC) 08/02/2024 External Device Data ST[facility] ABSTRACTION Provider, Abstract 07/05/2024 External Device Data [facility] ABSTRACTION Provider, Abstract 06/10/2024 Orders Only [facility] Information Management [place] [address] [place] [address] Provider, Abstract 06/10/2024 Abstract [facility] [address] [phone] Lynda Moran FNP 06/09/[address] [phone] Lynda Moran FNP Results 05/25/2024 1:00 PM DATA VISUALIZATION DEVELOPER Office Visit [facility] [place] [address] [place] [address] [place] [phone] Lynda Moran FNP Type 2 diabetes mellitus with diabetic polyneuropathy, with long-term current use of insulin ([facility]) (Primary Dx); Hyperlipidemia, unspecified hyperlipidemia type; History of amputation of toe; Petechial rash; Encounter for colorectal cancer screening; Declined influenza vaccine from Last 3 Months Immunizations Immunization Administration Dates Next Due (PNEUMOVAX 23)(50 YRS UP) PN EUMOCOCCAL POLYSACCHARIDE (PPV23) 0.5 ML, IM 10/18/2013 INFLUENZA VACCINE TRIVALENT SPLIT VIRUS, (6 MOS UP), 0.5ML (PF), IM 05/11/2024 Influenza Seasonal Unspecified Formulation PF IM 08/28/2011 Pneumococcal 7-valent conjugate vaccine IM 08/28 Social History Tobacco Use Types Packs/Day Years [...] on file Legal Sex Male 10:28 PM DATA VISUALIZATION DEVELOPER Gender Identity Not on file Sexual Orientation Not on file Last Filed Vital Signs Vital Sign Reading Time Taken Comments Blood Pressure 136/78 08/04/2024 3:23 PM DATA VISUALIZATION DEVELOPER Pulse 90 08/04/2024 3:18 PM DATA VISUALIZATION DEVELOPER Temperature 36.2 ??C (97.1 ??F) 08/04/2024 3:18 PM CS T Respiratory Rate 18 08/04/2024 3:18 PM DATA VISUALIZATION DEVELOPER Oxygen Saturation 99% 08/04/2024 3:18 PM DATA VISUALIZATION DEVELOPER Inhaled Oxygen Concentration - - Weight 101.6 kg (224 lb) 08/04/2024 3:18 PM DATA VISUALIZATION DEVELOPER Height 180.3 cm (5' 11 ) 08/04/2024 3:18 PM DATA VISUALIZATION DEVELOPER Body Mass Index 31.24 08/04/2024 3:18 PM DATA VISUALIZATION DEVELOPER Plan of Treatment Upcoming Encounters Date Type Department Care Team (Late st Contact Info) Description 08/25/2024 9:00 AM DATA VISUALIZATION DEVELOPER Office Visit [facility] [place] [address] [facility] [address] [facility] [place] [phone] Dean Lynda, CLICKING MACHINE OPERATOR [address] [facility] [place] [phone] Health Maintenance Due Date Last Done Comments DIABETES MICROALBUMIN ANNUAL SCREEN 1982 FIT/ DNA Q 3 YEARS (AUTO ORDER) 1982 FIT/FOBT Q 1 YEAR (AUTO ORDER) 1982 FLEX SIG/CT COLONOGRAPHY Q 5 YEARS (AUTO ORDER) 1982 DTAP/TDAP/TD VACCINES (1 - Tdap) 1983 COLORECTAL CANCER SCREENING (AUTO ORDER) 2009 COLORECTAL SCREENING 2009 Colorectal Cancer Screening (AUTO ORDER) 2009 Colorectal Cancer Screening 2009 FIT-DNA Q 3 years 2009 FIT/FOBT Q 1 year 2009 Flex Sig/CT Colonography Q 5 years 2009 ZOSTER VACCINE (1 of 2) 2014 DIABETES ANNUAL RETINAL EXAM 11/26/2022 11/26/2021, 04/12/2014 RSV VACCINE (60+ or ) (1 - Risk 60-74 years 1-dose series) 2024 KHE eGFR (Auto Order) 07/20/2024 06/07/2024 , 07/22/2022, 09/07/2019, Additional history exists KHE uACR (Auto Order) 07/20/2024 11/26/2021 Medicare Advantage ([place]) Preventative Visit/Annual Wellness Visit 07/20/2024 DIABETES HBA1C Q 6 MONTHS 12/05/2024 06/07/2024, 12/2021 DIABETES: A1C (Auto Order) 06/07/2025 06/07/2024, LDL CHOLESTEROL ANNUAL 06/07/2025 06/07/2024 DIABETES ANNUAL FOOT EXAM 08/04/2025 08/04/2024, INFLUENZA VACCINE Completed 05/25/2024, , 05/11/2024, Additional history exists HEPATITIS B VACCINES Aged Out No long er eligible based on patient's age to complete this topic Medical Devices Implanted Type Area Information Assurance Device Identifier Shelf Expiration Date Model / Serial / Lot Lens Io Bi-Aspheric Softechd+15.0 - [id number] Implanted:Qty: 1 on 11/07/2020 by Cristi Plascencia MD Eye Left: Eye [employer] 10/01/2024 SOFTECHD+15 .0 / [id number] / Procedures Procedure Name Priority Date/Time Associated Diagnosis Comments COMPREHENSIVE METABOLIC PANEL Routine 06/07/2024 10:27 AM DATA VISUALIZATION DEVELOPER HEMOGLOBIN A1C Routine 06/07/2024 LIPID PANEL Routine 06/07/2024 CBC WITH DIFFERENTIAL Routine 05/25/2024 2:29 PM DATA VISUALIZATION DEVELOPER Petechial rash PERIPHERAL BLOOD SMEAR PATHOLOGY INTERP Routine 05/25/2024 2:29 PM DATA VISUALIZATION DEVELOPER Petechial rash from Last 3 Months Results * COMPREHENSIVE METABOLIC PANEL (06/07/2024 10:27 AM DATA VISUALIZATION DEVELOPER) Blood us Abstract Provider CHEMISTRY ORDERABLES Final Res ult * HEMOGLOBIN A1C (06/07/2024) ABSTRACTED HGB A1C 6.7 % Blood 06/07/2024 us Abstract Provider CHEMISTRY ORDERABLES Final Res ult * LIPID PANEL (06/07/2024) ABSTRACTED CHOLESTEROL 94 ABSTRACTED TRIGLYCERIDE 124 ABSTRACTED HDL 34 ABSTRACTED LDL CALCULATED 36 Blood 06/07/2024 us Abstract Provider CHEMISTRY ORDERABLES Final Res ult * PERIPHERAL BLOOD SMEAR PATHOLOGY INTERP (05/25/2024 2:29 PM DATA VISUALIZATION DEVELOPER) PERIPHERAL BLOOD SMEAR INTERP [facility] Comment: ESSENTIALLY NORMAL PERIPHERAL SMEAR (ALL CELLULAR ELEMENTS). ?? SMEAR(S) REVIEWED BY CALLY ALCARAZ M.D. SMEAR REVIEW PERFORMING LOCATION: [place] [address] White Mixing Operator: Cally Alcaraz M.D. CLIA: [id number] Test Performed at: [facility] [address] [place], [place] ??[phone] Debbie Mao MD Blood 05/25/2024 2:29 PM DATA VISUALIZATION DEVELOPER 05/26/2024 3:29 AM DATA VISUALIZATION DEVELOPER us Lynda Moran CLICKING MACHINE OPERATOR HEMATOLOGY ORDERABLES Final Resu lt [facility] [phone] [facility] [address] [place] [address] * CBC WITH DIFFERENTIAL (05/25/2024 2:29 PM DATA VISUALIZATION DEVELOPER) WBC 8.8 3.8 - 10.8 Thousand/u L [facility] RBC 5.02 4.20 - 5.80 Million/uL [facility] HEMOGLOBIN 14.1 13.2 - 17.1 g/dL [facility] HEMATOCRIT 44.0 38.5 - 50.0 % [facility] MCV 87.6 80.0 - 100.0 fL [facility] MCH 28.1 27.0 - 33.0 pg [facility] MCHC 32.0 32.0 - 36.0 g/dL [facility] Comment: For adults, a slight decrease in the calculated MCHC value (in the range of 30 to 32 g/dL) is most likely not clinically significant; however, it should be interpreted with caution in correlation with other red cell parameters and the patient's clinical condition. RDW 13.6 11.0 - 15.0 % [facility] PLATELETS 312 140 - 400 Thousand/u L [facility] MPV 9.9 7.5 - 12.5 fL [facility] NEUTROPHIL ABSOLUTE 5,016 1,500 - 7,800 cells/uL [facility] LYMPHOCYTE ABSOLUTE 2,570 850 - 3,900 cells/uL [facility] MONOCYTE ABSOLUTE 686 200 - 950 cells/uL [facility] EOSINOPHIL ABSOLUTE 449 15 - 500 cells/uL [facility] BASOPHILS ABSOLUTE 79 0 - 200 cells/uL [facility] NEUTROPHIL 57 % [facility] LYMPHOCYTES 29.2 % [facility] MONOCYTE 7.8 % [facility] EOSINOPHILS 5.1 % [facility] BASOPHILS 0.9 % [facility] Comment: Test Performed at: [facility] [id number] [place] [address] ??[phone] Debbie Mao MD Blood 05/25/2024 2:29 PM DATA VISUALIZATION DEVELOPER 05/26/2024 3:29 AM DATA VISUALIZATION DEVELOPER us Lynda Moran CLICKING MACHINE OPERATOR HEMATOLOGY ORDERABLES Final Resu lt Performing Organization Address City/State/[facility] Co de Phone Number [facility] [phone] [facility] [address] [place] [address] from Last 3 Months Insurance MEDICAID [place] D[place] COMPLETE CHOICE [facility] [id number] Member Subscriber Plan / Payer (Ef fective 2023-Present) Name:Leo Abraham Relation to Subscriber:Self Name:Leo Abraham Payer ID:[id number] (NAIC) Group ID:Not on file Type:PPO Address: [place] [phone] Care Teams Principal Software Architect Relationship Specialty Start Date End Date Yuridia Thorpe MD [address] [phone] PCP - General Family Practice 08/04/24
--- OUTSIDE RECORDS SUMMARY | 2024-08-23 07:23 | XMS_ITS | Encounter Summary ---
Author Organization [facility] Address [address] [place] [address] Care Team Providers Care Engineering Group Leader Name Role Phone Yuridia Thorpe MD Primary Care Provider [phone] Encounter Details Date Type Department Care Team [...] on file Legal Sex Male 10:28 PM STONE SAWYER Gender Identity Not on file Sexual Orientation Not on file documented as of this encounter Plan of Treatment Upcoming Encounters Date Type Department Care Team (Late st Contact Info) Description 08/25/2024 9:00 AM STONE SAWYER Office Visit [facility] [place] [address] [facility] [address] [place] [address] [place] [phone] Lynda Moran FNP [address] [facility] [place] [phone] documented as of this encounter Visit Diagnoses Not on filedocumented in this encounter Care Teams Engineering Group Leader Relationship Specialty Start Date End Date Yuridia Thorpe MD [address] [facility] [address] [place] [address] PCP - General Family Practice 08/04/24 documented as of this encounter
--- NOTE | 2024-08-23 10:05 | PC.CHAP ---
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 hygiene teacher visit [] Patient/Family/Request visit [] Outpatient visit [] Follow-up visit [] Physician referral [] Code/Alert [] Routine visit [] Staff referral [] Actively dying [] Patient sleeping [] Family support [] [] Out of room [] Palliative care [] [x] Receiving care in room [] Pre-surgical visit [] Trauma [] Long length of stay [] ICU visit [] Other: Relational/Emotional Strength [] Patient feels connected with others/family/visitors/staff [] Distress [] Loneliness/isolation [] Abandonment Spirituality of Patient [] Person of Ariadne [] Attends Restorationism of their Ariadne [] Believes in Prayer [] Reads Bible or Jew materials [] There are Spiritual issues to be addressed Do All Operator Interventions [] Prayer [] Active listening [] Non-anxious presence [] Spiritual/emotional support [] Crisis/trauma care [] Spiritual counseling [] Bereavement support [] Provided bereavement packet [] Provided Bible/devotional materials [] Provided toy/stuffed animal, coloring book to patient or family member [] Provided Communion [] Anointing/[place] [] Salvation [] Completed spiritual assessment [] Other: Impact on Illness or Injury [] Angry [] Fearful [] Anxious [] Often cries [] Exhaustion [] Unable to work [] Unable to attend shinto [] Unable to walk/stand [] Unable to read [] Unable to drive [] Unable to eat/drink [] Unable to sleep [] Unable to be with family [] Patient intubated [] Other: Summary Time spent with patient
[2024-08-23 11:56] LABS: Glucose Point of Care 191 mg/dL (70-110)
[2024-08-23] MEDS: enoxaparin 40 mg/0.4 mL Syringe SUBCUT (12:22)
--- NOTE | 2024-08-23 13:43 | P.PN_ITS ---
Subjective 2 Subjective: Patient indicates that he is spoken with his family and friends and he is electing to proceed with a below-knee amputation on the left. Vitals/I&O/Wt Last Vital Signs Temp 98.0 F 08/23/24 12:00 Pulse 93 08/23/24 12:00 Resp 18 08/23/24 12:00 BP 129/79 08/23/24 12:00 Pulse Ox 98 08/23/24 12:00 O2 Del Method Room Air 08/23/24 12:00 08/22/24 08/23/24 08/23/24 22:59 06:59 14:59 Intake Total 660 / 660 250 / 910 610 / 610 Output Total 800 / 800 275 / 275 Balance 660 / 660 -550 / 110 335 / 335 Weight last 48 hrs Weight 214 lb 1.6 oz Weight 230 lb Physical Exam 2 Narrative: On exam today left foot is still draining serosanguineous fluid. Wound appears to still be is erythematous and exudate is still draining from this. Redness over the dorsum of the foot appears to have improved since IV antibiotics is started as well as the swelling and redness in his lower extremity. However, it still appears that this is a nonviable foot and therefore at this time we will go ahead and proceed with a below-knee amputation on the left Data 08/23/24 04:27 08/23/24 04:27 A&P Assessment and plan (1) Peripheral vascular disease due to secondary diabetes: (2) Chronic ulcer of left foot with fat layer exposed: Plan Nonhealing ulcers left foot, peripheral vascular disease secondary to diabetes Plan at this time is left below-knee amputation All risk benefits treatment alternatives been discussed with this patient he is agreeable to this at this time. All of his questions have been answered PDMP PDMP Reviewed: Not Reviewed Attestations 2 Medical Necessity Statement*: Assessment at this time is peripheral vascular disease with nonhealing ulcers left foot secondary to diabetes Plan at this time is below-knee amputation on the left Coding Level of Care Code Critical Care >/= 30 minutes Diagnoses Peripheral vascular disease due to secondary diabetes E13.51 Chronic ulcer of left foot with fat layer exposed L97.522
[2024-08-23] MEDS: vancomycin 1,250 MG/250 ML PIGGYBACK 166.6 MG IV (14:57)
[2024-08-23 16:07] LABS: Basophils # 0.1 10^3/uL (0.0-0.1); Basophils % 0.7 %; Eosinophils # 0.3 10^3/uL (0.0-0.8); Eosinophils % 3.9 %; Hematocrit 37.7 % (37-53); Lymphocytes # 1.7 10^3/uL (0.8-4.8); Lymphocytes % 25.8 %; Mean Corpuscular HGB Conc 32.1 g/dL (30-55); Mean Corpuscular Hemoglobin 28.1 pg (27-33); Mean Corpuscular Volume 87.5 fl (82-101); Mean Platelet Volume 9.6 fL (7.4-10.4); Monocytes # 0.5 10^3/uL (0.2-0.9); Monocytes % 7.7 %; Neutrophils # 4.05 10^3/uL (1.8-7.7); Neutrophils % 60.4 %; Nucleated Red Blood Cells % 0 %; Platelet Count 365 10^3/cmm (157-399); Red Blood Count 4.31 10^6/uL (3.85-5.65); Red Cell Distribution Width 14.3 % (12.1-15.1); White Blood Count 6.71 10^3/uL (3.29-11.43)
[2024-08-23 16:37] LABS: Glucose Point of Care 341 mg/dL (70-110)
--- NOTE | 2024-08-23 17:18 | PM.PN ---
Subjective Subjective: He is having runny nose minimal cough. Mild headache. Vitals/I&O/Wt Last Vital Signs Temp 98.1 F 08/23/24 16:00 Pulse 95 08/23/24 16:00 Resp 18 08/23/24 16:00 BP 133/78 08/23/24 16:00 Pulse Ox 96 08/23/24 16:00 O2 Del Method Room Air 08/23/24 16:00 08/23/24 08/23/24 08/23/24 06:59 14:59 22:59 Intake Total 250 / 910 610 / 610 250 / 860 Output Total 800 / 800 275 / 275 Balance -550 / 110 335 / 335 250 / 585 Weight last 48 hrs Weight 97.114 kg Weight 104.326 kg Physical Exam Const: COMMON NORMALS: patient oriented x3 and alert GENERAL APPEARANCE: cooperative ORIENTATION/CONSCIOUSNESS: Yes awake HENMT: COMMON NORMALS: oropharynx normal Neck/C-Spine: COMMON NORMALS: no JVD Resp: COMMON NORMALS: normal respiratory effort and clear to auscultation bilaterally AUSCULTATION: clear to auscultation bilaterally Cardio: COMMON NORMALS: no JVD, regular rhythm, S1 normal heart sound present, S2 normal heart sound present and No murmurs present (Cardio) RHYTHM: regular rhythm HEART SOUNDS: S1 normal heart sound present and S2 normal heart sound present GI: COMMON NORMALS: Normal to inspection, nondistended, normoactive bowel sounds present, Soft to palpation and non-tender PALPATION: Yes Soft to palpation Extremity: COMMON NORMALS: no joint enlargement and no pedal edema GENERAL: Yes edema (LLE) OTHER: Prior TMA amputations bilaterally. Neuro: COMMON NORMALS: patient oriented x3 and moves all extremities SENSORIUM/ORIENTATION: Yes alert Skin: NARRATIVE SKIN EXAM: Mild improvement of swelling of left lower extremity. Mild improvement of erythema and swelling of distal left foot. Deep ulceration of distal left lateral foot with purulent discharge with a lot of debris with surrounding induration. Left heel ulceration with purulent and bloody discharge. Surrounding induration. Right plantar mid distal foot tiny ulceration. Without surrounding induration. No erythema or swelling of right foot. Prior TMA. Data 08/23/24 15:28 08/23/24 04:27 A&P Assessment and plan (1) Diabetic infection of left foot: Mild improvement in symptoms today, slight improvement in edema, erythema. He has discussed with orthopedic surgery regarding consideration of options, with recommendation for BKA amputation, and he wanted to take today to further consider his options and discuss with family. Resume diet, he was agreeable to place n.p.o. after midnight. Reviewed vitals, CBC, BMP. Reviewed venous duplex, negative for DVT. Reviewed foot x-ray. Reviewed arterial duplex, noted degraded waveform and posterior tibial and dorsalis pedis arteries. Remaining calf vessels not visualized. No evidence of hemodynamically significant stenosis involving common femoral superficial femoral or popliteal arteries. Discussed with nurse case management. Reviewed orthopedic note, he has decided to proceed with BKA. Will hold morning lisinopril dose. Moderate risk with diabetes, hypertension, his age, but without condition that should delay surgical source control of his significant infection. Will obtain baseline EKG. Noted some hyperglycemia, continue to optimize sugar control. Increased sliding scale to moderate dose. Continue Lantus, currently at decreased dose and a suspicion of n.p.o status. Continue cefepime,, ice, monitor for risk of encephalopathy, CHICA, Mitchell-Franc syndrome, C. difficile. Diabetic foot infection with soft tissue infections of and around chronic wound, cellulitis, suspected possible deeper foot infection and osteomyelitis of the left foot. With swelling, redness, warmth, with open draining ulcerations of the left foot, including left lateral distal foot with deep ulceration down to bone, draining purulent discharge and debris with surrounding tissue swelling. As well as plantar left heel ulceration with purulent and bloody discharge with smaller amount of surrounding swelling. Erythema of distal foot, edema of distal left lower leg. Discussed with wound care provider, reviewed wound care provider note. Does have history of MRSA. Obtain wound culture. Orthopedic consultation, discussed with orthopedic surgeon, amputation is considered. Will give coverage with cefepime, vancomycin at current time. Monitor for risk of encephalopathy with cefepime. Risk of kidney injury with vancomycin. Reassess chemistry. He otherwise has been close to baseline state of health, although has had some headache, sneezing and mild cough. Will obtain respiratory viral panel. Reviewed A1c. Would benefit from better control. Plan Minimal malaise: With mild headache, runny nose, mild cough. Requested respiratory viral panel, reviewed, negative. DM2: Increase sliding scale to moderate. Continue insulin Lantus, decrease dose to 30 units for now as he will be n.p.o. for anticipated surgical procedure. Sliding scale insulin. POC glucose checks. Consult carbohydrate diet otherwise. HTN: Monitor blood pressures. A-fib: He has not taken his Eliquis in over a week. Hold at current time. PDMP PDMP Reviewed: Not Reviewed Attestations Medical Necessity Statement*: Continue admission for assessment management of diabetic foot infection. and High MDM includes amount and/or complexity of data reviewed/ordered [ previous or external records, resulted lab(s)/test(s), ordered lab(s)/test(s) and other healthcare professional discussion] and described risk of complication, morbidity or mortality of management as documented Diagnoses Diabetic infection of left foot E11.628; L08.9
--- NOTE | 2024-08-23 17:24 | ECG_ITS ---
[email or web address] Test Date: 2024-08-23 Pat Name: Leo Bond Department: Room: 251 Gender: Male Poultry Cutter: : 1965 Requested By: Steve Valladares Order Number: [id number] Lina MD: Balwinder Olivera M.D. Measurements Intervals [place] Rate: 91 P: 16 NH: 160 QRS: -23 QRSD: 96 T: 31 QT: 346 QTc: 426 Interpretive Statements SINUS RHYTHM BORDERLINE LEFT AXIS DEVIATION [QRS AXIS < -20] No previous ECG available for comparison Electronically Signed On 08-25-2024 22:21:43 INTERNAL MEDICINE NURSE PRACTITIONER by Balwinder Olivera M.D. [email or web address]
[2024-08-23] MEDS: insulin lispro 100 unit/1 mL SUBCUT ×2 (17:29→21:09)
[2024-08-23 20:16] LABS: Glucose Point of Care 169 mg/dL (70-110)
[2024-08-23] MEDS: insulin glargine 100 units/1 mL 30 UNIT SUBCUT (21:09)
[2024-08-23 22:05] LABS: Vancomycin Trough 21.9 ug/mL (10-15)
[2024-08-24] VITALS (19 sets, daily range): BP systolic 109–147; BP diastolic 61–83; PULSE 84–103; RESP 10–18; TEMP 36.3–37.1; O2SAT 90–100
[2024-08-24] MEDS: cefepime 2,000 mg SDV 2000 MG IVP ×2 (03:17→13:15)
[2024-08-24] MEDS: VANCOMYCIN ADD-Vantage 1,000 MG in 0.9% NaCl ADD-Vantage 250 ML 250 MG IV ×3 (05:00→21:12)
[2024-08-24 05:32] LABS: Basophils # 0.1 10^3/uL (0.0-0.1); Basophils % 0.9 %; Eosinophils # 0.4 10^3/uL (0.0-0.8); Eosinophils % 5.2 %; Hematocrit 36.6 % (37-53); Lymphocytes % 25.5 %; Mean Corpuscular HGB Conc 32.2 g/dL (30-55); Mean Corpuscular Hemoglobin 28.4 pg (27-33); Mean Corpuscular Volume 88.2 fl (82-101); Mean Platelet Volume 9.6 fL (7.4-10.4); Monocytes # 0.7 10^3/uL (0.2-0.9); Monocytes % 9.3 %; Neutrophils # 4.47 10^3/uL (1.8-7.7); Neutrophils % 57.1 %; Nucleated Red Blood Cells % 0 %; Platelet Count 377 10^3/cmm (157-399); Red Blood Count 4.15 10^6/uL (3.85-5.65); Red Cell Distribution Width 14.3 % (12.1-15.1); White Blood Count 7.84 10^3/uL (3.29-11.43)
[2024-08-24 06:03] LABS: Blood Urea Nitrogen 10 mg/dL (8-23); Calcium 8.8 mg/dL (8.5-10.5); Carbon Dioxide 25 mmol/L (22-29); Chloride 101 mmol/L (98-107); Creatinine Clr Calc Pharmacy 133.4603; Glucose 253 mg/dL (65-115); Osmolality Calculated 290 mOsm/kg (285-295); Sodium 136 mmol/L (136-145)
[2024-08-24 06:04] LABS: Anion Gap 14.5 (5-19); Potassium 4.5 mmol/L (3.5-5.1)
[2024-08-24 06:52] LABS: Glucose Point of Care 218 mg/dL (70-110)
--- NOTE | 2024-08-24 06:52 | ANES.PREANE2 ---
Pre-Anesthetic Assessment Height/Weight: Height 1.8 m Weight 97.25 kg Temp Pulse Resp BP Pulse Ox O2 Del Method 98.5 F 86 17 147/83 95 Room Air 08/24/24 03:43 08/24/24 03:43 08/24/24 03:43 08/24/24 03:43 08/24/24 03:43 08/24/24 03:43 Preop Diagnosis: Nonhealing ulcer left foot, peripheral vascular disease Operation Date: 08/24/24 08:00 Proposed Procedures p Below Knee Amputation(Left) - Kieran Gray MD Familial anesthetic complications: None Was Beta Melissa taken within 24 hours: N/A Was Clonidine taken within 24 hours: N/A Last intake: Intake Last Liquid Date 08/23/24 Last Liquid Time 23:00 Last Solid Date 08/23/24 Last Solid Time 23:00 Social No alcohol and No tobacco Exam alert, oriented x 3, clear to auscultation bilaterally and regular rate & rhythm Airway Mallampati: Class III Dentition: other (extremely poor dentition, missing, rotten, broken patient educated on elevated risk of dental damage w/ intubation) Metabolic Diabetes Mellitus Anesthetic Plan ASA status: 4 Anesthesia: General and Regional (specify below) Other: RSI for unknown last use semaglutide Risk of > 500 ml blood loss (7ml/kg in children): No Medications/Allergies Home Medications ?Medication ?Instructions ?Recorded ?Confirmed ?Last Taken ?Type apixaban 5 mg tablet (Eliquis) 5 mg PO BID 04/20/20 08/22/24 10/20/23 History metformin 500 mg tablet 500 mg PO BID 04/20/20 08/22/24 10/20/23 History atorvastatin 40 mg tablet 40 mg PO DAILY 10/20/23 08/22/24 10/20/23 History lisinopril 10 mg tablet 10 mg PO DAILY 10/20/23 08/22/24 10/20/23 History semaglutide 2 mg/dose (8 mg/3 mL) 2 mg SUBCUT Q7D 08/22/24 08/22/24 Unknown History subcutaneous pen injector (Ozempic) sulfamethoxazole 800 1 tab PO BID #20 tabs 08/22/24 08/22/24 Unknown Rx mg-trimethoprim 160 mg tablet (Bactrim DS) Allergies Allergy/AdvReac Type Severity Reaction Status Date / Time No Known Allergies Allergy Verified 07/24/21 15:14 Current Medications Generic Name Dose Route Start Last Admin Trade Name Freq PRN Reason Stop Dose Admin Cefepime HCl 2,000 mg 08/22/24 14:45 08/24/24 03:17 Cefepime 2,000 Mg Sdv IVP 2,000 mg Q12H APOLONIA Administration Protocol Enoxaparin Sodium 40 mg 08/22/24 13:15 08/23/24 12:22 Enoxaparin 40 Mg/0.4 Ml Syringe SUBCUT 40 mg Q24H APOLONIA Administration Vancomycin HCl 1,000 mg/ 250 mls @ 250 mls/hr 08/24/24 05:00 08/24/24 06:12 Sodium Chloride IV Infused 0500,1300,2100 APOLONIA Infusion Insulin Glargine 30 unit 08/22/24 21:00 08/23/24 21:09 Insulin Glargine 100 Units/1 Ml SUBCUT 30 unit BEDTIME APOLONIA Administration Insulin Human Lispro 0 unit 08/23/24 18:00 08/23/24 21:09 Insulin Lispro 100 Unit/1 Ml SUBCUT 4 unit WM&BEDTIME APOLONIA Administration Protocol [facility] Anesthesia Medical History Knowledge deficit on leg surgery leg opened with drain placement due to infection A-fib Amputation of one or more toes Hypertension Insulin dependent diabetes mellitus Acute cystitis without hematuria Acute urinary retention Surgical History History of cholecystectomy S/P debridement thigh and foot H/O amputation all toes S/P cholecystectomy Family History Father , at age 60 Myocardial infarction (lateral wall) Mother , at age 73 Diabetes Social History Second hand smoke exposure: Yes Alcohol intake: never Substance/Drug Use: never Caregiver/support person: Yes Lives independently: No Household members: family Housing: House Marital status: Single Number of children: 0 Highest education level completed: Some College, No Degree service: No Current occupational status: disabled Data Anesthesia 08/24/24 04:35 08/24/24 04:35 Short CBC 08/22/24 08/23/24 08/23/24 Range/Units 14:01 04:27 15:28 WBC 9.02 7.54 6.71 (3.29-11.43) 10^3/uL Hgb 12.20 12.40 12.10 (11.27-16.99) g/dL Hct 38.5 38.8 37.7 (37-53) % MCV 88.9 87.8 87.5 (82-101) fl Plt Count 313 360 365 (157-399) 10^3/cmm Neut % (Auto) 70.7 61.9 60.4 % Neut # (Auto) 6.37 4.67 4.05 (1.8-7.7) 10^3/uL 08/24/24 Range/Units 04:35 WBC 7.84 (3.29-11.43) 10^3/uL Hgb 11.80 (11.27-16.99) g/dL Hct 36.6 L (37-53) % MCV 88.2 (82-101) fl Plt Count 377 (157-399) 10^3/cmm Neut % (Auto) 57.1 % Neut # (Auto) 4.47 (1.8-7.7) 10^3/uL BMP 08/22/24 08/23/24 08/24/24 14:01 04:27 04:35 Sodium 131 L 135 L 136 Potassium 4.7 4.2 4.5 Chloride 96 L 100 101 Carbon Dioxide 24 23 25 BUN 11 9 10 Creatinine 0.7 0.6 L 0.7 Glucose 239 H 208 H 253 H Calcium 7.9 L 8.5 8.8 Liver Function 08/22/24 Range/Units 14:01 Total Bilirubin 0.2 (0.15-1.2) mg/dL AST 11 (0-40) U/L ALT 10 (0-41) U/L Alkaline Phosphatase 98 (40-130) U/L Albumin 3.0 L (3.5-5.2) g/dL Blood Bank 08/23/24 15:28 Blood Type A Positive Rho(D) Type Rh positive Antibody Screen Negative COVID Results 08/22/24 23:45 Coronavirus 229E (PCR) Not detected SARS-CoV-2 (PCR) Not detected Cardiac Studies: No Data to Display
--- NOTE | 2024-08-24 08:08 | PC.NURSE ---
time out @0745 per crystal 20 ml of .5 percent ropivicaine injected via ultrasound guidance left lower extremity
--- NOTE | 2024-08-24 08:57 | PC.CHAP ---
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 visit [] Patient/Family/Request visit [] Outpatient visit [] Follow-up visit [] Physician referral [] Code/Alert [] Routine visit [] Staff referral [] Actively dying [] Patient sleeping [] Family support [] [x] Out of room [] Palliative care [] [] Receiving care in room [] Pre-surgical visit [] Trauma [] Long length of stay [] ICU visit [] Other: Relational/Emotional Strength [] Patient feels connected with others/family/visitors/staff [] Distress [] Loneliness/isolation [] Abandonment Spirituality of Patient [] Person of Ariadne [] Attends Synagogue of their Ariadne [] Believes in Prayer [] Reads Bible or Mandaen materials [] There are Spiritual issues to be addressed Director Instructional Material Interventions [] Prayer [] Active listening [] Non-anxious presence [] Spiritual/emotional support [] Crisis/trauma care [] Spiritual counseling [] Bereavement support [] Provided bereavement packet [] Provided Bible/devotional materials [] Provided toy/stuffed animal, coloring book to patient or family member [] Provided Communion [] Anointing/[place] [] Salvation [] Completed spiritual assessment [] Other: Impact on Illness or Injury [] Angry [] Fearful [] Anxious [] Often cries [] Exhaustion [] Unable to work [] Unable to attend voodoo [] Unable to walk/stand [] Unable to read [] Unable to drive [] Unable to eat/drink [] Unable to sleep [] Unable to be with family [] Patient intubated [] Other: Summary Time spent with patient
--- NOTE | 2024-08-24 09:55 | P.OP_ITS ---
Operative Report Date of procedure: August 24, 2024 Surgeon: Kieran Gray MD Procedure: Preop diagnosis: Nonhealing ulcerations left foot secondary to peripheral vascular disease and infection Postop diagnosis: Same Procedure: Below-knee amputation left lower extremity Surgeon: Kieran Gray MD Anesthesia: General EBL: 50 cc Tourniquet time: 64 minutes at 250 mmHg Complications: None Indications: Mr. Abraham is a 59-year-old white male whose had severe diabetes and peripheral vascular disease for quite some time. He has been dealing with nonhealing ulcers of bilateral feet primarily on the left lower extremity for greater than a year. He has had multiple bouts of cellulitis and infection in the area and presently was admitted for cellulitis of the left lower extremity. Orthopedic consultation was obtained and after evaluating his past medical history and reviewing his physical exam and discussing his history it is felt the patient would most benefit from a below-knee amputation. He has had multiple procedures done on this foot including amputation of toes and debridements however this is not helping in any way and therefore at this time a definitive surgery would be a below-knee amputation. All risk benefits treatment alternatives were discussed with him and he was agreeable to this at this time. Procedure: After obtaining her consent patient was taken to the operating room placed on the operative table supine position and general anesthetic administered. Once again as he was achieved pneumatic cuffs placed around proximal left leg. Left lower extremities prepped and draped in usual fashion. After surgical timeout [place] exsanguination was done to the leg and pneumatic cuffs inflated 250 mmHg. Anterior incision line was marked with a marking pen and a ruler at 8 cm distal to the tibial tubercle. Subsequently using marking pen a [place] incision was drawn out on the leg with posterior flap longer. Sharp dissection was followed along these drawn out surgical line with a #[address] down to subcutaneous tissues. Electrocautery is for hemostasis. In stepwise fashion soft tissue released with electrocautery on both medial lateral sides of the tibia down to the neurovascular structures. These were identified and tied off with 0 silk ties. These were then divided with electrocautery. Continued dissection was taken on down to clear both the fibula and the tibia. A sagittal saw was was used to make a transverse cut through the tibia at the 8 cm george. Edges of it were beveled with a sagittal saw off also. Fibula was then cut approximately 2 to 3 cm higher than that of the tibia to avoid any impingement in the stump for prosthetic placement. At this point further dissection taken down through the posterior aspect of the leg again identifying neurovascular structures and tying them off with silk ties and divided with electrocautery. A flap of soleus and gastrocnemius muscles were kept extending distal to the anterior incision. Once the lower extremity was removed he was handed off for pathology evaluation. Soft tissues were then positioned to cover the end of the stump of the tibia. Drill holes were placed in the tibia for suturing. #2 Ethibond [id number]-[id number] sutures were then used to drill holes in the bone to bring about the fascia of the calf musculature posteriorly and tied up over the end of the tibia. Once this was completed 0 Vicryl xfkzbp-[id number]-[id number] sutures were then used to approximate the rest of the muscle tissue to the fascia of the anterior portion of the leg. 0 Vicryl interrupted and jsiopn-tb-owdsu suture was then used subcutaneously to bring the skin edges close together. 0 Prolene oqggsx-bt-nkkbs and horizontal mattress sutures were used to close the wound completely. Wound was then cleaned and dried dressed with Xeroform gauze, sterile gauze dressing, ABDs and Curlex wrap. Patient then had a short leg cast applied to this with appropriate application and molding. Patient was then awakened transferred to cover room in stable condition. Should be noted at the time of skin closure pneumatic cuff deflated after 1 hour and 4 minutes of tourniquet time.
--- NOTE | 2024-08-24 10:06 | ANES.PROC ---
Anesthesia Procedures Procedure/Date: 08/24/24 Nerve Block ^: Nerve Block 1: Time Out Performed: Yes Consent: from patient, risks and benefits reviewed and patient agrees to proceed Nerve block location: adductor canal and popliteal Anesthesia monitors applied: pulse oximetry Nerve block position: supine Anesthetic Used: ropivicaine 0.5% (diluted to 0.25%) Amount of anesthesia used (mL): 40 Ultrasound used to: recognize landmarks and other (sartorius muscle, saphenous nerve, sciatic, tibial and common peroneal nerves. ) Nerve Stimulator Used?: Yes Injection: neg aspiration of heme and paresthesia +/- Patient Tolerated Procedure: well and no complications Complications: none
[2024-08-24 10:08] LABS: Glucose Point of Care 225 mg/dL (70-110)
--- NOTE | 2024-08-24 10:09 | PC.NURSE ---
1007- Michelle ALATORRE notified of blood sugar at 225 - no orders rec'd
--- NOTE | 2024-08-24 10:34 | PC.NURSE ---
This nurse took report from TEA Escobedo in PACU at 1035am.
--- NOTE | 2024-08-24 10:35 | ANE.PACU2 ---
Inpatient post-anesthesia follow up: Airway intact: Yes Vital signs: Temperature 97.8 F Pulse Rate 84 Respiratory Rate 16 Blood Pressure 147/80 Pulse Oximetry 94 Oxygen Delivery Me thod Room Air Oxygen Flow Rate 8 Fraction of Inspir ed Oxygen Hydration adequate: Yes Nausea and vomiting: No Pain level: 1 Mental status: Baseline
--- NOTE | 2024-08-24 10:54 | PC.NURSE ---
1048 - accepted into room 251-2 with ADALI Kennedy at side - left bka dressing c/d/i - no distress noted in pt upon this nurse exiting - BP 13/80 - pulse 94 - 02 94% - temp 97.7
[2024-08-24 11:22] LABS: Glucose Point of Care 238 mg/dL (70-110)
[2024-08-24] MEDS: insulin lispro 100 unit/1 mL SUBCUT ×2 (13:15→21:11)
[2024-08-24] MEDS: enoxaparin 40 mg/0.4 mL Syringe SUBCUT (13:15)
[2024-08-24] MEDS: acetaminophen 325 mg Tablet 650 MG PO (13:26)
--- NOTE | 2024-08-24 13:48 | PC.SOCIAL ---
IMM Updated IMM dated and initialed, copy given to patient and placed in chart
[2024-08-24 17:02] LABS: Glucose Point of Care 132 mg/dL (70-110)
--- NOTE | 2024-08-24 18:13 | P.PN_ITS ---
Subjective 2 Subjective: He is returning after his BKA. Reports feeling a bit groggy, but otherwise okay. Vitals/I&O/Wt Last Vital Signs Temp 97.8 F 08/24/24 15:50 Pulse 87 08/24/24 15:50 Resp 15 08/24/24 15:50 BP 135/81 08/24/24 15:50 Pulse Ox 93 08/24/24 15:50 O2 Del Method Room Air 08/24/24 15:50 O2 Flow Rate 8 08/24/24 10:04 08/24/24 08/24/24 08/24/24 06:59 14:59 22:59 Intake Total 250 / 1940 500 / 500 120 / 620 Output Total 750 / 2325 250 / 250 400 / 650 Balance -500 / -385 250 / 250 -280 / -30 Weight last 48 hrs Weight 97.25 kg Weight 97.114 kg Physical Exam 2 Const: COMMON NORMALS: patient oriented x3 and alert GENERAL APPEARANCE: c ooperative ORIENTATION/CONSCIOUSNESS: Yes awake HENMT: COMMON NORMALS: oropharynx normal Neck/C-Spine: COMMON NORMALS: no JVD Resp: COMMON NORMALS: normal respiratory effort AUSCULTATION: wheezes (Mild) Cardio: COMMON NORMALS: no JVD, regular rhythm, S1 normal heart sound present, S2 normal heart sound present and No murmurs present (Cardio) RHYTHM: regular rhythm HEART SOUNDS: S1 normal heart sound present and S2 normal heart sound present GI: COMMON NORMALS: Normal to inspection, nondistended, normoactive bowel sounds present, Soft to palpation and non-tender PALPATION: Yes Soft to palpation Extremity: COMMON NORMALS: no joint enlargement NARRATIVE EXTREMITY EXAM: Surgical dressing left lower extremity after BKA. Neuro: COMMON NORMALS: patient oriented x3 and moves all extremities S ENSORIUM/ORIENTATION: Yes alert Skin: COMMON NORMALS: no rashes or lesions noted GENERAL SKIN EXAM: no rashes or lesions noted Data 08/24/24 04:35 08/24/24 04:35 A&P Assessment and plan (1) Diabetic infection of left foot: Reviewed vitals, CBC, BMP, orthopedic note, discussed with orthopedic surgery, he underwent left lower extremity BKA today. So far he is doing well after his surgery. He is having some mild wheezing, incentive spirometer is requested, discussed with him. Requested DuoNeb scheduled and as needed. Continues on IV antibiotics for now. Pending reassessment. Noted has been restarted on Eliquis. Reassess blood counts. Monitor for development of anemia. Continue cefepime,Vancomycin, monitor for risk of encephalopathy, CHICA, Mitchell- Franc syndrome, C. difficile. Discussed with nursing, child welfare caseworker.She has a wheelchair at home. Arrangements underway to try to find home health care for him. Does have history of MRSA. Obtain wound culture. Orthopedic consultation, discussed with orthopedic surgeon, amputation is considered. Will give coverage with cefepime, vancomycin at current time. Monitor for risk of encephalopathy with cefepime. Risk of kidney injury with vancomycin. Reassess chemistry. He otherwise has been close to baseline state of health, although has had some headache, sneezing and mild cough. Will obtain respiratory viral panel. Reviewed A1c. Would benefit from better control. Hydrocodone as needed for pain. IV morphine as needed for severe breakthrough pain. Plan Minimal bilateral wheeze: Requested DuoNeb scheduled and as needed. Minimal malaise: With mild headache, runny nose, mild cough. respiratory viral panel, negative. DM2: Continue moderate sliding scale. Reviewed glucose, down as low as 132 today. Diet has been resumed. Will increase Lantus to 35 units. Reassess blood glucose. Consult carbohydrate diet otherwise. HTN: Monitor blood pressures. Lisinopril has been resumed. A-fib: He has not taken his Eliquis in over a week. Hold at current time. PDMP PDMP Reviewed: Not Reviewed Attestations 2 Medical Necessity Statement*: Continue admission for assessment management after left diabetic foot infection, amputation. and High MDM includes amount and/or complexity of data reviewed/ordered [ previous or external records, resulted lab(s)/test(s), ordered lab(s)/test(s) and other healthcare professional discussion] and described risk of complication, morbidity or mortality of management as documented Diagnoses Diabetic infection of left foot E11.628; L08.9
[2024-08-24] MEDS: metformin 500 mg Tablet PO (18:32)
[2024-08-24] MEDS: ondansetron 2 mg/ML SDV 2 mL 4 MG IVP (18:32)
[2024-08-24] MEDS: sulfamethoxazole-trimeth DS 160-800 mg Tablet 1 TAB PO (18:32)
[2024-08-24] MEDS: apixaban 5 mg Tablet PO (18:32)
[2024-08-24] MEDS: ketorolac 30 mg/mL INJ IVP (18:32)
[2024-08-24] MEDS: docusate sodium 100 mg Capsule PO (18:32)
[2024-08-24] MEDS: ipratropium-albuterol 3 mL Neb INHALATION (19:35)
[2024-08-24 20:53] LABS: Glucose Point of Care 271 mg/dL (70-110)
[2024-08-24] MEDS: insulin glargine 100 units/1 mL 35 UNIT SUBCUT (21:22)
[2024-08-24] MEDS: HYDROcodone-acetaminophen 5-325 mg Tablet PO (21:26)
[2024-08-25] VITALS (11 sets, daily range): BP systolic 108–135; BP diastolic 66–81; PULSE 87–103; RESP 15–20; TEMP 36.8–38.2; O2SAT 92–96
[2024-08-25] MEDS: ketorolac 30 mg/mL INJ IVP ×2 (01:53→07:49)
[2024-08-25] MEDS: cefepime 2,000 mg SDV 2000 MG IVP ×2 (01:54→12:23)
[2024-08-25] MEDS: ondansetron 2 mg/ML SDV 2 mL 4 MG IVP (02:07)
[2024-08-25] MEDS: ipratropium-albuterol 3 mL Neb INHALATION ×4 (02:08→20:39)
[2024-08-25] MEDS: VANCOMYCIN ADD-Vantage 1,000 MG in 0.9% NaCl ADD-Vantage 250 ML 250 MG IV ×2 (05:00→12:22)
[2024-08-25 05:42] LABS: Basophils # 0.1 10^3/uL (0.0-0.1); Basophils % 0.8 %; Eosinophils # 0.2 10^3/uL (0.0-0.8); Eosinophils % 2.1 %; Hematocrit 34.8 % (37-53); Lymphocytes # 1.4 10^3/uL (0.8-4.8); Lymphocytes % 15.5 %; Mean Corpuscular HGB Conc 31.6 g/dL (30-55); Mean Corpuscular Hemoglobin 27.7 pg (27-33); Mean Corpuscular Volume 87.7 fl (82-101); Mean Platelet Volume 9.5 fL (7.4-10.4); Monocytes # 0.9 10^3/uL (0.2-0.9); Monocytes % 10.5 %; Neutrophils # 6.18 10^3/uL (1.8-7.7); Neutrophils % 69.4 %; Nucleated Red Blood Cells % 0 %; Platelet Count 382 10^3/cmm (157-399); Red Blood Count 3.97 10^6/uL (3.85-5.65); Red Cell Distribution Width 14.4 % (12.1-15.1); White Blood Count 8.91 10^3/uL (3.29-11.43)
[2024-08-25 05:54] LABS: Blood Urea Nitrogen 11 mg/dL (8-23); Calcium 7.9 mg/dL (8.5-10.5); Carbon Dioxide 24 mmol/L (22-29); Chloride 103 mmol/L (98-107); Creatinine Clr Calc Pharmacy 116.5511; Glomerular Filtration Rate 98.6 mL/min (90-130); Glucose 120 mg/dL (65-115); Osmolality Calculated 287 mOsm/kg (285-295); Sodium 138 mmol/L (136-145)
[2024-08-25 06:18] LABS: Glucose Point of Care 110 mg/dL (70-110)
[2024-08-25] MEDS: docusate sodium 100 mg Capsule PO ×2 (07:49→16:58)
[2024-08-25] MEDS: lisinopril 10 mg Tablet PO (07:49)
[2024-08-25] MEDS: sulfamethoxazole-trimeth DS 160-800 mg Tablet 1 TAB PO ×2 (07:49→16:58)
[2024-08-25] MEDS: apixaban 5 mg Tablet PO ×2 (07:49→16:58)
[2024-08-25] MEDS: metformin 500 mg Tablet PO ×2 (07:49→16:58)
[2024-08-25] MEDS: atorvastatin 40 mg Tablet PO (07:49)
[2024-08-25] MEDS: HYDROcodone-acetaminophen 5-325 mg Tablet PO ×2 (09:52→16:58)
--- NOTE | 2024-08-25 11:29 | P.PN_ITS ---
Subjective 2 Subjective: He is returning after his BKA. Reports feeling a bit groggy, but otherwise okay. Patient is now 24 hours out from below-knee amputation left lower extremity. States that the pain is tolerable but is still needing pain medication for control. He states he is only tried once to sit up in bed and drain transfer. Medications: Reviewed: Yes Vitals/I&O/Wt Last Vital Signs Temp 98.3 F 08/25/24 07:08 Pulse 91 08/25/24 07:34 Resp 16 08/25/24 07:30 BP 135/81 08/25/24 07:08 Pulse Ox 96 08/25/24 07:30 O2 Del Method Room Air 08/25/24 07:30 O2 Flow Rate 8 08/24/24 10:04 08/24/24 08/25/24 08/25/24 22:59 06:59 14:59 Intake Total 810 / 1310 490 / 1800 240 / 240 Output Total 900 / 1150 200 / 1350 200 / 200 Balance -90 / 160 290 / 450 40 / 40 Weight last 48 hrs Weight 213 lb 8 oz Weight 214 lb 6.4 oz Physical Exam 2 Narrative: On exam today patient is resting in bed. Dressings in casting over the operative extremity are intact. There is no bloody drainage identified. There is no drainage at all. All is fitting well with no other problems at this time. Data 08/25/24 04:55 08/25/24 04:55 A&P Assessment and plan (1) Peripheral vascular disease due to secondary diabetes: (2) Chronic ulcer of left foot with fat layer exposed: Plan Plan at this time is to continue with pain control as well as physical therapy for training for transfers. Wheelchair is being arranged for home use. PDMP PDMP Reviewed: Not Reviewed Attestations 2 Medical Necessity Statement*: Patient is 1 day status post left below-knee amputation. He is tolerating this well however still needs pain control as well as nursing care for daily activities. Coding Level of Care Code Critical Care >/= 30 minutes Diagnoses Peripheral vascular disease due to secondary diabetes E13.51 Chronic ulcer of left foot with fat layer exposed L97.522
[2024-08-25 11:41] LABS: Glucose Point of Care 146 mg/dL (70-110)
[2024-08-25] MEDS: enoxaparin 40 mg/0.4 mL Syringe SUBCUT (12:22)
[2024-08-25] MEDS: insulin lispro 100 unit/1 mL SUBCUT ×2 (12:22→21:01)
[2024-08-25 12:31] LABS: Vancomycin Trough 21.4 ug/mL (10-15)
[2024-08-25 16:40] LABS: Glucose Point of Care 110 mg/dL (70-110)
--- NOTE | 2024-08-25 17:24 | P.PN_ITS ---
Subjective 2 Subjective: He is overall doing okay, has been encouraged to use incentive spirometer, placed a device closer to him to be within reach. He otherwise still has been having pain and requiring pain medication for control, has been requiring Toradol, hydrocodone. He otherwise has also spoken with case management and arrangements for home health for him. He already has a wheelchair at home. Vitals/I&O/Wt Last Vital Signs Temp 98.4 F 08/25/24 15:16 Pulse 90 08/25/24 15:16 Resp 17 08/25/24 15:16 BP 114/71 08/25/24 15:16 Pulse Ox 95 08/25/24 15:16 O2 Del Method Room Air 08/25/24 15:16 O2 Flow Rate 8 08/24/24 10:04 08/25/24 08/25/24 08/25/24 06:59 14:59 22:59 Intake Total 490 / 1800 610 / 610 Output Total 200 / 1350 200 / 200 150 / 350 Balance 290 / 450 410 / 410 -150 / 260 Weight last 48 hrs Weight 96.842 kg Weight 97.25 kg Physical Exam 2 Const: COMMON NORMALS: patient oriented x3 and alert GENERAL APPEARANCE: c ooperative ORIENTATION/CONSCIOUSNESS: Yes awake HENMT: COMMON NORMALS: oropharynx normal Neck/C-Spine: COMMON NORMALS: no JVD Resp: COMMON NORMALS: normal respiratory effort and clear to auscultation bilaterally AUSCULTATION: clear to auscultation bilaterally and wheezes (Mild) Cardio: COMMON NORMALS: no JVD, regular rhythm, S1 normal heart sound present, S2 normal heart sound present and No murmurs present (Cardio) RHYTHM: regular rhythm HEART SOUNDS: S1 normal heart sound present and S2 normal heart sound present GI: COMMON NORMALS: Normal to inspection, nondistended, normoactive bowel sounds present, Soft to palpation and non-tender PALPATION: Yes Soft to palpation Extremity: COMMON NORMALS: no joint enlargement and no pedal edema N ARRATIVE EXTREMITY EXAM: Surgical dressing left lower extremity after BKA. GENERAL: Yes edema (LLE) OTHER: Prior TMA amputations bilaterally. Neuro: COMMON NORMALS: patient oriented x3 and moves all extremities S ENSORIUM/ORIENTATION: Yes alert Skin: COMMON NORMALS: no rashes or lesions noted NARRATIVE SKIN EXAM: Mild improvement of swelling of left lower extremity. Mild improvement of erythema and swelling of distal left foot. Deep ulceration of distal left lateral foot with purulent discharge with a lot of debris with surrounding induration. Left heel ulceration with purulent and bloody discharge. Surrounding induration. Right plantar mid distal foot tiny ulceration. Without surrounding induration. No erythema or swelling of right foot. Prior TMA. GENERAL SKIN EXAM: no rashes or lesions noted Data 08/25/24 04:55 08/25/24 04:55 A&P Assessment and plan (1) Diabetic infection of left foot: Reviewed vitals, CBC, BMP, Vanco trough, for now continue empirically antibiotic coverage. Her, as discussed with him anticipate likely discontinuation of troponin prior to discharge. Pending orthopedic reassessment. Still requiring optimization of pain control, as well as arrangements for post discharge support, wound care. Discussed with case technician, home health arrangements underway and they will be working with his family to continue wound care and dressing changes. Continue to optimize pain control, acetaminophen, hydrocodone, Toradol for moderate pain, IV morphine for severe breakthrough. Discussed with him mild anemia today, hemoglobin down to 11. Continues with Eliquis. Monitor for bleeding. Reassess blood counts. Reviewed orthopedic note, discussed with nursing, case technician. Continue cefepime,Vancomycin, monitor for risk of encephalopathy, CHICA, Mitchell- Franc syndrome, C. difficile. Discussed with nursing, case technician. He has a wheelchair at home. Arrangements underway to try to find home health care for him. Reviewed A1c. Would benefit from better control. Reviewed POC glucose, glucose is better, 110-120. Continue metformin, insulin Lantus. Currently on 35 units. Will not increase further, monitor for risk of hypoglycemia with likely improved insulin sensitivity with improvement of infection after imitation. Sliding scale insulin. Hydrocodone as needed for pain. IV morphine as needed for severe breakthrough pain. Plan Minimal bilateral wheeze: Requested DuoNeb scheduled and as needed. Minimal malaise: With mild headache, runny nose, mild cough. respiratory viral panel, negative. DM2: Reviewed POC glucose. Continue Lantus at current dose. Continue moderate sliding scale. Reassess blood glucose. Consult carbohydrate diet otherwise. HTN: Monitor blood pressures. Lisinopril has been resumed. A-fib: He has not taken his Eliquis in over a week. Hold at current time. PDMP PDMP Reviewed: Not Reviewed Attestations 2 Medical Necessity Statement*: Continue admission for assessment management after left diabetic foot infection, amputation. Pain control. Post discharge planning and arrangements. and High MDM includes amount and/or complexity of data reviewed/ordered [ previous or external records, resulted lab(s)/test(s), ordered lab(s)/test(s) and other healthcare professional discussion] and described risk of complication, morbidity or mortality of management as documented Diagnoses Diabetic infection of left foot E11.628; L08.9
[2024-08-25 20:41] LABS: Glucose Point of Care 173 mg/dL (70-110)
[2024-08-25] MEDS: insulin glargine 100 units/1 mL 35 UNIT SUBCUT (21:01)
[2024-08-26] VITALS (10 sets, daily range): BP systolic 92–138; BP diastolic 52–76; PULSE 97–111; RESP 15–19; TEMP 36.7–39.5; O2SAT 90–95
[2024-08-26] MEDS: ondansetron 2 mg/ML SDV 2 mL 4 MG IVP ×3 (00:06→17:13)
[2024-08-26] MEDS: ketorolac 30 mg/mL INJ IVP (00:06)
[2024-08-26] MEDS: vancomycin 1,250 MG/250 ML PIGGYBACK 166.67 MG IV (01:12)
[2024-08-26] MEDS: ipratropium-albuterol 3 mL Neb INHALATION ×3 (02:09→20:36)
[2024-08-26] MEDS: cefepime 2,000 mg SDV 2000 MG IVP ×2 (03:02→14:12)
[2024-08-26 04:26] LABS: Basophils # 0.1 10^3/uL (0.0-0.1); Basophils % 0.7 %; Eosinophils # 0.2 10^3/uL (0.0-0.8); Eosinophils % 2.6 %; Hematocrit 34.9 % (37-53); Lymphocytes # 1.1 10^3/uL (0.8-4.8); Lymphocytes % 12.1 %; Mean Corpuscular HGB Conc 31.2 g/dL (30-55); Mean Corpuscular Volume 89.7 fl (82-101); Monocytes # 0.9 10^3/uL (0.2-0.9); Monocytes % 10.1 %; Neutrophils # 6.59 10^3/uL (1.8-7.7); Neutrophils % 71.8 %; Nucleated Red Blood Cells % 0 %; Platelet Count 390 10^3/cmm (157-399); Red Blood Count 3.89 10^6/uL (3.85-5.65); Red Cell Distribution Width 14.9 % (12.1-15.1); White Blood Count 9.18 10^3/uL (3.29-11.43)
[2024-08-26 04:52] LABS: Blood Urea Nitrogen 14 mg/dL (8-23); Carbon Dioxide 24 mmol/L (22-29); Chloride 102 mmol/L (98-107); Creatinine Clr Calc Pharmacy 105.1911; Glomerular Filtration Rate 86.1 mL/min (90-130); Glucose 77 mg/dL (65-115); Osmolality Calculated 279 mOsm/kg (285-295); Sodium 135 mmol/L (136-145)
[2024-08-26 06:33] LABS: Glucose Point of Care 67 mg/dL (70-110)
[2024-08-26] MEDS: apixaban 5 mg Tablet PO ×2 (08:29→17:08)
[2024-08-26] MEDS: sulfamethoxazole-trimeth DS 160-800 mg Tablet 1 TAB PO ×2 (08:29→17:08)
[2024-08-26] MEDS: atorvastatin 40 mg Tablet PO (08:29)
[2024-08-26] MEDS: lisinopril 10 mg Tablet PO (08:29)
[2024-08-26] MEDS: docusate sodium 100 mg Capsule PO ×2 (08:29→17:08)
[2024-08-26] MEDS: metformin 500 mg Tablet PO ×2 (08:29→17:08)
[2024-08-26] MEDS: HYDROcodone-acetaminophen 5-325 mg Tablet PO (08:36)
[2024-08-26 10:45] LABS: Adenovirus Not Detected (NOT DETECT); Chlamydia Pneumoniae Not Detected (NOT DETECT); Coronavirus 229E,HKU1,NL63,OC4 Not Detected (NOT DETECT); Human Metapneumovirus Not Detected (NOT DETECT); Human Rhinovirus/Enterovirus Not Detected (NOT DETECT); Influenza A Not Detected (NOT DETECT); Influenza A H1 Not Detected (NOT DETECT); Influenza A H1-2009 Not Detected (NOT DETECT); Influenza A H3 Not Detected (NOT DETECT); Influenza B Not Detected (NOT DETECT); Mycoplasma Pneumoniae Not Detected (NOT DETECT); Parainfluenza Virus Type 1 Not Detected (NOT DETECT); Parainfluenza Virus Type 2 Not Detected (NOT DETECT); Parainfluenza Virus Type 3 Not Detected (NOT DETECT); Parainfluenza Virus Type 4 Not Detected (NOT DETECT); Respiratory Syncytial Virus B Not Detected (NOT DETECT); SARS-COV-2 Not Detected (NOT DETECT)
[2024-08-26 10:47] LABS: Glucose Point of Care 134 mg/dL (70-110)
[2024-08-26 10:51] LABS: Respiratory Syncytial Virus A Detected (NOT DETECT)
[2024-08-26] MEDS: vancomycin 1,250 MG/250 ML PIGGYBACK 166 MG IV (14:12)
[2024-08-26] MEDS: enoxaparin 40 mg/0.4 mL Syringe SUBCUT (14:12)
--- NOTE | 2024-08-26 15:22 | P.PN_ITS ---
Subjective 2 Subjective: He is having some low-grade fever and mild dry cough. Some malaise. No worsening or changes in the left lower extremity. No swelling or drainage. We tested a viral panel and he is coming back positive for RSV. Vitals/I&O/Wt Last Vital Signs Temp 99.4 F 08/26/24 11:50 Pulse 101 H 08/26/24 11:50 Resp 15 08/26/24 11:50 BP 96/56 08/26/24 11:50 Pulse Ox 92 08/26/24 11:50 O2 Del Method Room Air 08/26/24 11:50 O2 Flow Rate 8 08/24/24 10:04 08/26/24 08/26/24 08/26/24 06:59 14:59 22:59 Intake Total 370 / 1800 270 / 270 Output Total 200 / 550 Balance 170 / 1250 270 / 270 Weight last 48 hrs Weight 100.062 kg Weight 96.842 kg Physical Exam 2 Const: COMMON NORMALS: patient oriented x3 and alert GENERAL APPEARANCE: c ooperative ORIENTATION/CONSCIOUSNESS: Yes awake HENMT: COMMON NORMALS: oropharynx normal Neck/C-Spine: COMMON NORMALS: no JVD Resp: COMMON NORMALS: normal respiratory effort and clear to auscultation bilaterally AUSCULTATION: clear to auscultation bilaterally and wheezes (Mild) Cardio: COMMON NORMALS: no JVD, regular rhythm, S1 normal heart sound present, S2 normal heart sound present and No murmurs present (Cardio) RHYTHM: regular rhythm HEART SOUNDS: S1 normal heart sound present and S2 normal heart sound present GI: COMMON NORMALS: Normal to inspection, nondistended, normoactive bowel sounds present, Soft to palpation and non-tender PALPATION: Yes Soft to palpation Extremity: COMMON NORMALS: no joint enlargement and no pedal edema N ARRATIVE EXTREMITY EXAM: Surgical dressing left lower extremity after BKA.No proximal swelling. GENERAL: Yes edema (LLE) OTHER: Prior TMA amputations RLE Neuro: COMMON NORMALS: patient oriented x3 and moves all extremities S ENSORIUM/ORIENTATION: Yes alert Skin: COMMON NORMALS: no rashes or lesions noted NARRATIVE SKIN EXAM: Prior R TMA without surrounding erythema or swelling. GENERAL SKIN EXAM: no rashes or lesions noted Data 08/26/24 04:12 08/26/24 04:12 A&P Assessment and plan (1) Diabetic infection of left foot: Reviewed vitals, CBC, chemistry, requested respiratory viral panel. He is having some malaise, low-grade temp and some dry cough. He is coming back positive for RSV. Maintain isolation. Otherwise hemoglobin appears to be remaining similar to yesterday, 10.9. Will reassess CBC. His pain is getting under more consistent control, he has Discussed with orthopedic surgery, once post discharge arrangements are done she would be able to discharge back home. Begin with case aide, he will be accepted by [facility], they should be notified prior to discharge if discharging tomorrow. Encouraged incentive spirometer. Continues with Eliquis. Monitor for bleeding. Reassess blood counts. On review, tissue culture showing Staph aureus. For today continue Vancomycin, monitor for risk of kidney injury, C. difficile. Stop cefepime. Per A1c would benefit from better control. Glucose is doing better, will not increase Lantus further. Should continue to monitor blood glucose at home. May need adjustment of his home Lantus dose. Will not increase further, monitor for risk of hypoglycemia with likely improved insulin sensitivity with improvement of infection after imitation. Sliding scale insulin. Hydrocodone as needed for pain. IV morphine as needed for severe breakthrough pain. Add MiraLAX for constipation. (2) RSV (acute bronchiolitis due to respiratory syncytial virus): Maintain isolation. Antitussive as needed. Nebulizer treatments. Plan Constipation: Add MiraLAX. DM2: Reviewed POC glucose. Continue Lantus at current dose. Will not increase further with risk of hypoglycemia. Reassess glucose. Continue moderate sliding scale. Reassess blood glucose. Consult carbohydrate diet otherwise. HTN: Monitor blood pressures. Lisinopril has been resumed. A-fib: Resumed on Eliquis. Stop Lovenox. He is becoming somewhat tachycardic, blood pressure on the soft side. Will hold lisinopril. If blood pressure allows, could start on some beta-ronny. PDMP PDMP Reviewed: Not Reviewed Attestations 2 Medical Necessity Statement*: Continue admission for reassessment after left lower extremity BKA, reassessment after fever, malaise, with contracted RSV bronchitis, finalizing discharge planning and arrangements. and High MDM includes amount and/or complexity of data reviewed/ordered [ resulted lab(s)/test(s), ordered lab(s)/test(s) and other healthcare professional discussion] as documented Diagnoses Diabetic infection of left foot E11.628; L08.9 RSV (acute bronchiolitis due to respiratory syncytial virus) J21.0
--- NOTE | 2024-08-26 15:30 | P.PN_ITS ---
Subjective 2 Subjective: Patient is voicing no complaints and nursing staff. Nursing staff expresses no concerns Medications: Reviewed: Yes Vitals/I&O/Wt Last Vital Signs Temp 99.4 F 08/26/24 11:50 Pulse 101 H 08/26/24 11:50 Resp 15 08/26/24 11:50 BP 96/56 08/26/24 11:50 Pulse Ox 92 08/26/24 11:50 O2 Del Method Room Air 08/26/24 11:50 O2 Flow Rate 8 08/24/24 10:04 08/26/24 08/26/24 08/26/24 06:59 14:59 22:59 Intake Total 370 / 1800 270 / 270 Output Total 200 / 550 Balance 170 / 1250 270 / 270 Weight last 48 hrs Weight 220 lb 9.6 oz Weight 213 lb 8 oz Physical Exam 2 Narrative: On exam today patient is sleeping however his casted left lower extremity is clear. No drainage noted on the dressings. Otherwise feeling well. Data 08/26/24 04:12 08/26/24 04:12 A&P Assessment and plan (1) History of left below knee amputation: Plan Plan at this time is continue on with the cast care of his operative side. He can be discharged home at any time now once home health care is arranged and he has a wheelchair for ambulation. Follow-up in my office in approximately 1 week's time. PDMP PDMP Reviewed: Not Reviewed Attestations 2 Medical Necessity Statement*: Patient is still receiving physical therapy for transfers, also needed pain medication for pain control Coding Level of Care Code 84822 Diagnoses History of left below knee amputation Z89.512
--- NOTE | 2024-08-26 16:29 | PC.OT ---
Pt seen for OT treatment session; pt washes face set-up assist supine in bed. Pt declines further OT treatment due to feeling malaise. Will attempt OT treatment again at another time.
[2024-08-26 17:08] LABS: Glucose Point of Care 141 mg/dL (70-110)
[2024-08-26] MEDS: acetaminophen 325 mg Tablet 650 MG PO (17:08)
[2024-08-26] MEDS: polyethylene glycol 3350 Pkt 17 gm PO (17:08)
[2024-08-26 21:00] LABS: Glucose Point of Care 171 mg/dL (70-110)
[2024-08-26] MEDS: insulin lispro 100 unit/1 mL SUBCUT (21:16)
[2024-08-26] MEDS: insulin glargine 100 units/1 mL 35 UNIT SUBCUT (21:16)
[2024-08-27] VITALS (10 sets, daily range): BP systolic 99–133; BP diastolic 53–69; PULSE 98–114; RESP 16–19; TEMP 37.2–38; O2SAT 91–94; BMI 29.7
[2024-08-27] MEDS: vancomycin 1,250 MG/250 ML PIGGYBACK 166 MG IV ×2 (00:59→13:04)
[2024-08-27] MEDS: ipratropium-albuterol 3 mL Neb INHALATION ×3 (01:48→13:37)
[2024-08-27 06:31] LABS: Glucose Point of Care 166 mg/dL (70-110)
[2024-08-27 08:24] LABS: Basophils # 0.1 10^3/uL (0.0-0.1); Basophils % 0.7 %; Eosinophils # 0.1 10^3/uL (0.0-0.8); Eosinophils % 0.6 %; Hematocrit 35.6 % (37-53); Lymphocytes % 12.3 %; Mean Corpuscular HGB Conc 32.3 g/dL (30-55); Mean Corpuscular Hemoglobin 28.1 pg (27-33); Mean Platelet Volume 9.1 fL (7.4-10.4); Monocytes # 0.9 10^3/uL (0.2-0.9); Monocytes % 11.6 %; Neutrophils % 73.4 %; Nucleated Red Blood Cells % 0 %; Platelet Count 390 10^3/cmm (157-399); Red Blood Count 4.09 10^6/uL (3.85-5.65); White Blood Count 8.04 10^3/uL (3.29-11.43)
[2024-08-27 08:46] LABS: Anion Gap 15.6 (5-19); Blood Urea Nitrogen 13 mg/dL (8-23); Carbon Dioxide 21 mmol/L (22-29); Chloride 100 mmol/L (98-107); Creatinine Clr Calc Pharmacy 116.5006; Glomerular Filtration Rate 98.6 mL/min (90-130); Glucose 153 mg/dL (65-115); Osmolality Calculated 277 mOsm/kg (285-295); Potassium 4.6 mmol/L (3.5-5.1); Sodium 132 mmol/L (136-145)
[2024-08-27] MEDS: metformin 500 mg Tablet PO (08:58)
[2024-08-27] MEDS: docusate sodium 100 mg Capsule PO ×2 (08:58→17:47)
[2024-08-27] MEDS: apixaban 5 mg Tablet PO ×2 (08:59→17:47)
[2024-08-27] MEDS: sulfamethoxazole-trimeth DS 160-800 mg Tablet 1 TAB PO ×2 (08:59→17:47)
[2024-08-27] MEDS: atorvastatin 40 mg Tablet PO (08:59)
[2024-08-27] MEDS: polyethylene glycol 3350 Pkt 17 gm PO ×2 (08:59→17:47)
[2024-08-27 11:51] LABS: Glucose Point of Care 165 mg/dL (70-110)
--- NOTE | 2024-08-27 12:18 | P.PN_ITS ---
Subjective 2 Subjective: Patient was not seen today but chart was reviewed Vitals/I&O/Wt Last Vital Signs Temp 99.2 F 08/27/24 07:52 Pulse 109 H 08/27/24 08:23 Resp 16 08/27/24 08:23 BP 133/69 08/27/24 07:52 Pulse Ox 93 08/27/24 08:23 O2 Del Method Nasal Cannula 08/27/24 08:23 O2 Flow Rate 1 08/27/24 08:23 08/26/24 08/27/24 08/27/24 22:59 06:59 14:59 Intake Total 490 / 760 370 / 1130 Output Total 400 / 400 Balance 490 / 760 -30 / 730 Weight last 48 hrs Weight 213 lb 4.8 oz Weight 220 lb 9.6 oz Physical Exam 2 Narrative: Nursing indicates dressings are clear Data 08/27/24 08:05 08/27/24 08:05 A&P Assessment and plan (1) Status post below-knee amputation of left lower extremity: Patient now has RSV and is in isolation. No further orthopedic involvement needs to be done until later date when wound check needs to be done in about 1 week. Plan Continue present care plan PDMP PDMP Reviewed: Not Reviewed Attestations 2 Medical Necessity Statement*: Patient being treated for RSV and other medical issues per the hospitalist at this time Coding Level of Care Code 22589 Diagnoses Status post below-knee amputation of left lower extremity Z89.512
[2024-08-27 12:31] LABS: Vancomycin Trough 17.8 ug/mL (10-15)
[2024-08-27 14:28] LABS: Estmated Average Glucose 252; Hemoglobin A1C 10.4 % (4.0-6.0)
--- NOTE | 2024-08-27 14:36 | P.PN_ITS ---
Subjective 2 Subjective: Hospital course, labs appreciated. Patient laying comfortably in bed. He is on 1 L saturating more than 92%. Denies any nausea, vomiting, headache. States he is feeling terribly weak. Denies any headache. Medications: Reviewed: Yes Vitals/I&O/Wt Last Vital Signs Temp 99.3 F 08/27/24 12:00 Pulse 104 H 08/27/24 13:43 Resp 18 08/27/24 13:37 BP 120/68 08/27/24 12:00 Pulse Ox 94 08/27/24 13:37 O2 Del Method Nasal Cannula 08/27/24 13:37 O2 Flow Rate 1 08/27/24 13:37 08/26/24 08/27/24 08/27/24 22:59 06:59 14:59 Intake Total 490 / 760 370 / 1130 360 / 360 Output Total 400 / 400 Balance 490 / 760 -30 / 730 360 / 360 Weight last 48 hrs Weight 96.751 kg Weight 100.062 kg Physical Exam 2 Const: COMMON NORMALS: patient oriented x3 and alert GENERAL APPEARANCE: c ooperative ORIENTATION/CONSCIOUSNESS: Yes awake HENMT: COMMON NORMALS: oropharynx normal Neck/C-Spine: COMMON NORMALS: no JVD Resp: COMMON NORMALS: normal respiratory effort and clear to auscultation bilaterally AUSCULTATION: clear to auscultation bilaterally and wheezes (Mild) Cardio: COMMON NORMALS: no JVD, regular rhythm, S1 normal heart sound present, S2 normal heart sound present and No murmurs present (Cardio) RHYTHM: regular rhythm HEART SOUNDS: S1 normal heart sound present and S2 normal heart sound present GI: COMMON NORMALS: Normal to inspection, nondistended, normoactive bowel sounds present, Soft to palpation and non-tender PALPATION: Yes Soft to palpation Extremity: COMMON NORMALS: no joint enlargement and no pedal edema N ARRATIVE EXTREMITY EXAM: Surgical dressing left lower extremity after BKA.No proximal swelling. GENERAL: Yes edema (LLE) OTHER: Prior TMA amputations RLE Neuro: COMMON NORMALS: patient oriented x3 and moves all extremities S ENSORIUM/ORIENTATION: Yes alert Skin: COMMON NORMALS: no rashes or lesions noted NARRATIVE SKIN EXAM: Prior R TMA without surrounding erythema or swelling. GENERAL SKIN EXAM: no rashes or lesions noted Data 08/27/24 08:05 08/27/24 08:05 A&P Assessment and plan (1) Diabetic infection of left foot: Post BKA. Wound culture prior to BKA consistent with MRSA from the bone. Wound care as per orthopedic team. For now continue with IV vancomycin and Bactrim. Will de-escalate to linezolid and Levaquin for a 10-day course on discharge. Hemoglobin stable. Continue with home dose of Eliquis 5 mg twice daily for now. Physical therapy. Hydrocodone as needed for pain. (2) RSV (acute bronchiolitis due to respiratory syncytial virus): Maintain isolation. Antitussive as needed. Nebulizer treatments. Supportive treatment. Prednisone 40 mg oral daily. (3) Peripheral vascular disease due to secondary diabetes: Check A1c, lipid panel. Will start on atorvastatin 20 mg daily accordingly. (4) Status post below-knee amputation: (5) MRSA (methicillin resistant staph aureus) culture positive: Plan Constipation: Add MiraLAX. DM2: A1c more than 10. Takes Ozempic and metformin at home. Most likely will plan to discharge on Ozempic and Lantus with advised to check fasting blood sugars daily. Advised patient of stricter blood glucose control. HTN: Goal blood pressure less than 140/90 mmHg. Hold off on lisinopril for now. Monitor blood pressures. A-fib: Start on metoprolol 25 mg twice daily. Heart rate mildly elevated. Continue with home dose of Eliquis. Full code Carb consistent diet Eliquis will be sufficient for DVT prophylaxis Famotidine for PUD prophylaxis PDMP PDMP Reviewed: Not Reviewed Attestations 2 Medical Necessity Statement*: Requires further hospitalization for management of diabetic foot infection post BKA, RSV, A-fib with RVR Diagnoses Diabetic infection of left foot E11.628; L08.9 RSV (acute bronchiolitis due to respiratory syncytial virus) J21.0 Peripheral vascular disease due to secondary diabetes E13.51 Status post below-knee amputation Z89.519 MRSA (methicillin resistant staph aureus) culture positive Z22.322
[2024-08-27 14:52] LABS: Chol HDL Ratio 3.58 mg/dL (1.0-5.00); Cholesterol 86 mg/dL (0-200); HDL Cholesterol 24 mg/dL (60-100); Iron 14 ug/dL (59-158); LDL Cholesterol Calculated 43 mg/dL (50-129); Percent Saturation 8.1 % (20-50); Thyroid Stimulating Hormone 1.46 uIU/mL (0.27-4.20); Total Iron Binding Capacity 172 mcg/dl; Triglycerides 94 mg/dL (0-150); Unsaturated Iron Binding 158 ug/dL (112-347); VLDL Cholestrol Calculation 19 mg/dL (0-30); Vitamin B12 432 pg/mL (232-1245)
[2024-08-27] MEDS: acetaminophen 325 mg Tablet 650 MG PO (15:59)
[2024-08-27] MEDS: benzonatate 100 mg Capsule 200 MG PO ×2 (15:59→20:16)
[2024-08-27] MEDS: predniSONE 20 mg Tablet 40 MG PO (15:59)
[2024-08-27 16:13] LABS: Glucose Point of Care 156 mg/dL (70-110)
[2024-08-27] MEDS: famotidine 20 mg Tablet PO (17:47)
[2024-08-27] MEDS: insulin lispro 100 unit/1 mL SUBCUT ×2 (17:48→20:26)
[2024-08-27] MEDS: metoprolol tartrate 25 mg Tablet PO (20:16)
[2024-08-27 20:21] LABS: Glucose Point of Care 181 mg/dL (70-110)
[2024-08-27] MEDS: insulin glargine 100 units/1 mL 35 UNIT SUBCUT (20:26)
[2024-08-28] VITALS (8 sets, daily range): BP systolic 108–136; BP diastolic 63–82; PULSE 76–94; RESP 16–20; TEMP 36.4–37; O2SAT 92–96
[2024-08-28] MEDS: vancomycin 1,250 MG/250 ML PIGGYBACK 166 MG IV ×2 (00:07→12:32)
[2024-08-28] MEDS: ipratropium-albuterol 3 mL Neb INHALATION ×2 (01:06→07:57)
[2024-08-28 05:55] LABS: Basophils % 0.3 %; Lymphocytes % 9.9 %; Mean Corpuscular HGB Conc 31.9 g/dL (30-55); Mean Corpuscular Hemoglobin 28.2 pg (27-33); Mean Corpuscular Volume 88.2 fl (82-101); Mean Platelet Volume 9.4 fL (7.4-10.4); Monocytes # 0.6 10^3/uL (0.2-0.9); Monocytes % 5.7 %; Neutrophils # 7.98 10^3/uL (1.8-7.7); Neutrophils % 82.9 %; Nucleated Red Blood Cells % 0 %; Platelet Count 428 10^3/cmm (157-399); Red Blood Count 4.08 10^6/uL (3.85-5.65); Red Cell Distribution Width 14.8 % (12.1-15.1); White Blood Count 9.63 10^3/uL (3.29-11.43)
[2024-08-28 06:15] LABS: Glucose Point of Care 242 mg/dL (70-110)
[2024-08-28 06:17] LABS: Alanine Aminotransferase 30 U/L (0-41); Albumin Level 2.9 g/dL (3.5-5.2); Alkaline Phosphatase 135 U/L (40-130); Anion Gap 18.6 (5-19); Aspartate Amino Transferase 67 U/L (0-40); Blood Urea Nitrogen 15 mg/dL (8-23); Calcium 7.9 mg/dL (8.5-10.5); Carbon Dioxide 21 mmol/L (22-29); Chloride 99 mmol/L (98-107); Creatinine Clr Calc Pharmacy 133.1435; Globulin 3.1 g/dL (1.3-4.6); Glucose 248 mg/dL (65-115); Osmolality Calculated 285 mOsm/kg (285-295); Potassium 5.6 mmol/L (3.5-5.1); Sodium 133 mmol/L (136-145); Total Bilirubin 0.2 mg/dL (0.15-1.2)
[2024-08-28] MEDS: insulin lispro 100 unit/1 mL SUBCUT ×2 (09:05→12:32)
[2024-08-28] MEDS: dextrose 10% 250 ML 1000 ML IV (09:06)
[2024-08-28] MEDS: calcium gluconate 0.1 gm/mL 10% SDV 10mL 1 GM IVP (09:06)
[2024-08-28] MEDS: benzonatate 100 mg Capsule 200 MG PO (09:07)
[2024-08-28] MEDS: predniSONE 20 mg Tablet 40 MG PO (09:07)
[2024-08-28] MEDS: docusate sodium 100 mg Capsule PO (09:07)
[2024-08-28] MEDS: insulin regular-human 100 units/1 mL 10 UNIT IVP (09:07)
[2024-08-28] MEDS: apixaban 5 mg Tablet PO (09:07)
[2024-08-28] MEDS: famotidine 20 mg Tablet PO (09:07)
[2024-08-28] MEDS: metoprolol tartrate 25 mg Tablet PO (09:07)
[2024-08-28] MEDS: atorvastatin 40 mg Tablet PO (09:08)
[2024-08-28] MEDS: polyethylene glycol 3350 Pkt 17 gm PO (09:08)
[2024-08-28] MEDS: acetaminophen 325 mg Tablet 650 MG PO (09:08)
[2024-08-28 09:52] LABS: Glucose Point of Care 255 mg/dL (70-110)
--- NOTE | 2024-08-28 11:41 | P.DS_ITS ---
Discharge Providers Date of Admission: 08/22/24 12:21 Date of Discharge: August 28, 2024 Attending Provider at Admission: Steve Valladares Attending Provider at Discharge: Bud Walsh MD Consults: Orthopedics: Dr. Gray Primary Care Provider: Jacinda Dutta NP Diagnoses at Discharge Discharge Diagnosis (1) Diabetic infection of left foot: Status: Acute (2) RSV (acute bronchiolitis due to respiratory syncytial virus): Status: Acute (3) Peripheral vascular disease due to secondary diabetes: Status: Acute (4) Status post below-knee amputation: Status: Acute (5) MRSA (methicillin resistant staph aureus) culture positive: Status: Acute Reason for Visit Reason for Visit: observation Brief History: History as per HPI: Pleasant 59-year-old gentleman with history of diabetes on long-acting insulin and Ozempic with prior history of diabetic foot wounds, amputations, been following with wound care. Has had a small ulceration of plantar right foot which has been under control, where is his left foot wounds have started giving him more problems. He has developed more purulent drainage from left lateral ulcer, as well as with redness, swelling of the distal left foot, with swelling tracking up into distal left leg. He denies fever or chills reports has had some sneezing, headache and mild cough. He does have history of MRSA infection. MRI was initially ordered for him for tomorrow, however, given significant s welling, erythema, drainage, depth of the wound and purulent debris he was referred for direct admission to the hospital. Hospital Course Hospital Course Patient was roomed to the hospital further evaluation and management of diabetic foot with concerns of failure to outpatient treatment. He was started on broad-spectrum antibiotics. He was found to have uncontrolled type 2 diabetes mellitus with A1c more than 10. Orthopedics was consulted. At first the plan was to treat patient conservatively with IV antibiotics but because of no improvement patient underwent BKA with orthopedic team on 08/24. His preoperative cultures were consistent with MRSA. Postoperatively patient developed fever without leukocytosis. Respiratory viral panel was checked which was positive for RSV. He is been discharged in stable condition on oral steroid for next 5 days, antibiotic as per culture with linezolid and Levaquin for next 10 days. He is to follow-up with orthopedic team within next 2 weeks for further wound care. He has been discharged on Lantus 40 units daily along with continuation of home dose of Ozempic with advised to follow-up with a blood sugar diary with a primary care provider within next 2 weeks. He is advised to check fasting blood sugars for next 2 weeks. Goal blood sugar fasting is less than 120. Physical Exam Const: COMMON NORMALS: patient oriented x3 and alert GENERAL APPEARANCE: cooperative ORIENTATION/CONSCIOUSNESS: Yes awake HENMT: COMMON NORMALS: oropharynx normal Neck/C-Spine: COMMON NORMALS: no JVD Resp: COMMON NORMALS: normal respiratory effort and clear to auscultation bilaterally AUSCULTATION: clear to auscultation bilaterally and wheezes (Mild) Cardio: COMMON NORMALS: no JVD, regular rhythm, S1 normal heart sound present, S2 normal heart sound present and No murmurs present (Cardio) RHYTHM: regular rhythm HEART SOUNDS: S1 normal heart sound present and S2 normal heart sound present GI: COMMON NORMALS: Normal to inspection, nondistended, normoactive bowel sounds present, Soft to palpation and non-tender PALPATION: Yes Soft to palpation Extremity: COMMON NORMALS: no joint enlargement and no pedal edema NARRATIVE EXTREMITY EXAM: Surgical dressing left lower extremity after BKA.No proximal swelling. GENERAL: Yes edema (LLE) OTHER: Prior TMA amputations RLE Neuro: COMMON NORMALS: patient oriented x3 and moves all extremities SENSORIUM/ORIENTATION: Yes alert Skin: COMMON NORMALS: no rashes or lesions noted NARRATIVE SKIN EXAM: Prior R TMA without surrounding erythema or swelling. GENERAL SKIN EXAM: no rashes or lesions noted Discharge Data Studies Completed and Pending Completed Studies During Hospitalization Category Date Time Status XR foot LT min 3V* [id number] Routine Exams 08/22/24 15:10 [place] [id number] Routine Ultrasound 08/22/24 13:33 [place] [id number] Routine Ultrasound 08/22/24 13:33 Completed Pending at discharge Category Date Time Status BMP [Basic Metabolic Panel] Routine Lab 08/28/24 12:00 Ordered Blood Culture Stat Lab 08/27/24 17:06 Results Wound Culture and Gram Stain Routine Lab 08/26/24 12:47 Ordered Pathology: Surgical [PTH] Routine Pth 08/24/24 09:29 Received Radiology Impressions Duplex Scan Lower Extremity Artery 08/22/24 13:33 IMPRESSION: 1. Degraded waveforms in the posterior tibial and dorsalis pedis arteries. Remaining calf vessels were not visualized. 2. No evidence for hemodynamically significant stenosis involving the common femoral, superficial femoral, or popliteal arteries. Venous Duplex 08/22/24 13:33 IMPRESSION: No evidence of deep vein thrombosis. Foot X-Ray 08/22/24 15:10 IMPRESSION: 1. Amputations of the 1st through 5th digits as described above, stable compared to March 07, 2024. 2. Marked soft tissue edema with soft tissue gas projecting over the soft tissues, particularly surrounding the 4th digit. 3. No definite radiographic evidence for osteomyelitis. If clinically indicated, MRI may be helpful for further evaluation. 4. Probable small plantar soft tissue ulcer within the heel pad, less pronounced compared to the prior study. Microbiology 08/27/24 17:06 Blood Blood Culture - Preliminary SPECIMEN COLLECTED 08/27/24 17:00 Blood Blood Culture - Preliminary SPECIMEN COLLECTED Laboratory Results WBC 9.63 10^3/uL (3.29-11.43) 08/28/24 05:07 RBC 4.08 10^6/uL (3.85-5.65) 08/28/24 05:07 Hgb 11.50 g/dL (11.27-16.99) 08/28/24 05:07 Hct 36.0 % (37-53) L 08/28/24 05:07 MCV 88.2 fl (82-101) 08/28/24 05:07 MCH 28.2 pg (27-33) 08/28/24 05:07 MCHC 31.9 g/dL (30-55) 08/28/24 05:07 RDW 14.8 % (12.1-15.1) 08/28/24 05:07 Plt Count 428 10^3/cmm (157-399) H 08/28/24 05:07 MPV 9.4 fL (7.4-10.4) 08/28/24 05:07 Neut % (Auto) 82.9 % 08/28/24 05:07 Lymph % (Auto) 9.9 % 08/28/24 05:07 [place] % (Auto) 5.7 % 08/28/24 05:07 Eos % (Auto) 0.0 % 08/28/24 05:07 Baso % (Auto) 0.3 % 08/28/24 05:07 Neut # (Auto) 7.98 10^3/uL (1.8-7.7) H 08/28/24 05:07 Lymph # (Auto) 1.0 10^3/uL (0.8-4.8) 08/28/24 05:07 [place] # (Auto) 0.6 10^3/uL (0.2-0.9) 08/28/24 05:07 Eos # (Auto) 0.0 10^3/uL (0.0-0.8) 08/28/24 05:07 Baso # (Auto) 0.0 10^3/uL (0.0-0.1) 08/28/24 05:07 Nucleated RBC % (auto) 0 % 08/28/24 05:07 Nucleated RBCs # 0.0 /100WBC 08/28/24 05:07 Sodium 133 mmol/L (136-145) L 08/28/24 05:07 Potassium 5.6 mmol/L (3.5-5.1) H 08/28/24 05:07 Chloride 99 mmol/L (98-107) 08/28/24 05:07 Carbon Dioxide 21 mmol/L (22-29) L 08/28/24 05:07 Anion Gap 18.6 (5-19) 08/28/24 05:07 BUN 15 mg/dL (8-23) 08/28/24 05:07 Creatinine 0.7 mg/dL (0.7-1.2) 08/28/24 05:07 GFR Calculation 115.0 mL/min (90-130) 08/28/24 05:07 Glucose 248 mg/dL (65-115) H 08/28/24 05:07 POC Glucose 255 mg/dL (70-110) H 08/28/24 09:12 Estimat Average Glucose 252 08/27/24 08:05 Hemoglobin A1c 10.4 % (4.0-6.0) H 08/27/24 08:05 Calculated Osmolality 285 mOsm/kg (285-295) 08/28/24 05:07 Calcium 7.9 mg/dL (8.5-10.5) L 08/28/24 05:07 Iron 14 ug/dL (59-158) L 08/27/24 08:05 TIBC 172 mcg/dl 08/27/24 08:05 % Saturation 8.1 % (20-50) L 08/27/24 08:05 Unsat Iron Binding 158 ug/dL (112-347) 08/27/24 08:05 Total Bilirubin 0.2 mg/dL (0.15-1.2) 08/28/24 05:07 AST 67 U/L (0-40) H 08/28/24 05:07 ALT 30 U/L (0-41) 08/28/24 05:07 Alkaline Phosphatase 135 U/L (40-130) H 08/28/24 05:07 Total Protein 6.0 g/dL (6.6-8.7) L 08/28/24 05:07 Albumin 2.9 g/dL (3.5-5.2) L 08/28/24 05:07 Globulin 3.1 g/dL (1.3-4.6) 08/28/24 05:07 Triglycerides 94 mg/dL (0-150) 08/27/24 08:05 Cholesterol 86 mg/dL (0-200) 08/27/24 08:05 LDL Cholesterol, Calc 43 mg/dL (50-129) L 08/27/24 08:05 Total VLDL Cholesterol 19 mg/dL (0-30) 08/27/24 08:05 HDL Cholesterol 24 mg/dL (60-100) L 08/27/24 08:05 Cholesterol/HDL Ratio 3.58 mg/dL (1.0-5.00) 08/27/24 08:05 Vitamin B12 432 pg/mL (232-1245) 08/27/24 08:05 TSH 1.46 uIU/mL (0.27-4.20) 08/27/24 08:05 Vancomycin Trough 17.8 ug/mL (10-15) H 08/27/24 12:00 Adenovirus (PCR) Not detected (NOT DETECT) 08/26/24 08:40 C. pneumoniae DNA (PCR) Not detected (NOT DETECT) 08/26/24 08:40 Coronavirus 229E (PCR) Not detected (NOT DETECT) 08/26/24 08:40 Human Metapneumovir PCR Not detected (NOT DETECT) 08/26/24 08:40 Influenza A (H1) PCR Not detected (NOT DETECT) 08/26/24 08:40 Influ A (H1/09) PCR Not detected (NOT DETECT) 08/26/24 08:40 Influenza A (H3) PCR Not detected (NOT DETECT) 08/26/24 08:40 Influenza Type A (PCR) Not detected (NOT DETECT) 08/26/24 08:40 Influenza Type B (PCR) Not detected (NOT DETECT) 08/26/24 08:40 M. pneumoniae (PCR) Not detected (NOT DETECT) 08/26/24 08:40 Parainfluenza 1 (PCR) Not detected (NOT DETECT) 08/26/24 08:40 Parainfluenza 2 (PCR) Not detected (NOT DETECT) 08/26/24 08:40 Parainfluenza 3 (PCR) Not detected (NOT DETECT) 08/26/24 08:40 Parainfluenza 4 (PCR) Not detected (NOT DETECT) 08/26/24 08:40 RSV Type A (PCR) Detected (NOT DETECT) A 08/26/24 08:40 RSV Type B (PCR) Not detected (NOT DETECT) 08/26/24 08:40 Entero/Rhino (PCR) Not detected (NOT DETECT) 08/26/24 08:40 SARS-CoV-2 (PCR) Not detected (NOT DETECT) 08/26/24 08:40 Blood Type A Positive 08/23/24 15:28 Rho(D) Type Rh positive 08/23/24 15:28 Antibody Screen Negative 08/23/24 15:28 Vitals Last Vital Signs Temp 98.6 F 08/28/24 08:00 Pulse 93 08/28/24 08:00 Resp 17 08/28/24 08:00 BP 120/74 08/28/24 08:00 Pulse Ox 93 08/28/24 08:00 O2 Del Method Nasal Cannula 08/28/24 08:00 O2 Flow Rate 1 08/28/24 01:05 Discharge Plan Discharge Patient Disposition: Home Condition: Stable Prescriptions: New prednisone 20 mg Tablet 40 mg PO DAILY Qty: 8 0RF benzonatate 100 mg Capsule 100 mg PO TID Qty: 20 0RF insulin glargine [Lantus Solostar U-100 Insulin] 100 unit/mL (3 mL) insulin pen 40 unit SUBCUT QPM Qty: 15 0RF levofloxacin 750 mg tablet 750 mg PO Q24H 10 Days Qty: 10 0RF metoprolol tartrate 25 mg Tablet 25 mg PO BID@0900,2100 Qty: 60 0RF linezolid 600 mg tablet 600 mg PO BID 10 Days Qty: 20 0RF Continued Eliquis 5 mg tablet 5 mg PO BID Ozempic 2 mg/dose (8 mg/3 mL) pen injector 2 mg SUBCUT Q7D atorvastatin 40 mg Tablet 40 mg PO DAILY lisinopril 10 mg Tablet 10 mg PO DAILY Discontinued sulfamethoxazole-trimethoprim [Bactrim DS] 800-160 mg tablet 1 tab PO BID Qty: 20 0RF metformin 500 mg tablet 500 mg PO BID Discharge Orders: Discharge Order (Routine); Ordered 08/28/24 Ordered By: Bud Walsh Other Ambulatory Orders: DME: [employer] (Order) Location: None Selected Ordered By: Steve Valladares Referrals: Keiran Gray MD [Physician] - 7-10 days (We have notified Dr. Gray's clinic of the need for a follow-up appointment to be scheduled. If you have not heard from them within the next 2 business days, please call them directly. ) Jacnida Dutta NP [Primary Care Provider] - 7-10 days (Call your primary care provider at [phone] tomorrow 08/29/24 to make a follow up appointment in 7- 10 days.) Patient Instructions: Acute Wound Care (DC), Opioid Safety, Post Anesthesia Care Activity Restrictions/Additional Instructions: Please check your blood pressures daily, fasting blood sugars daily. Maintain a blood sugar and blood pressure diary. Your goal blood pressure of less than 140/90 mmHg. Goal fasting blood sugar is less than 120. Follow-up with a primary care provider within next 10 days for further adjustment of medication. You will be on Lantus which is a new medication. You will take 40 units every day. Continue taking Ozempic as before. Do not take metformin as before. Discharge Attestations Time Spent in Discharge Care*: greater than 30 min Specific Discharge Activities: educating patient, discussing with pcp/other providers, discussing with case resource manager/social workers/dc planners, documenting/other paperwork and evaluating patient/reviewing data Status at Discharge: Cognitive status at discharge: cognitively intact , Behavioral status at discharge: cooperative , Functional status at discharge: independent ambulation , Overall status at discharge: patient is back to baseline Quality Metrics Clinical Quality Measures [ No reported AMI, CVA or VTE this stay] Coding Level of Care Code 48212 Total time (in minutes) for Discharge: 60 Diagnoses Diabetic infection of left foot E11.628; L08.9 RSV (acute bronchiolitis due to respiratory syncytial virus) J21.0 Peripheral vascular disease due to secondary diabetes E13.51 Status post below-knee amputation Z89.519 MRSA (methicillin resistant staph aureus) culture positive Z22.322
[2024-08-28 11:57] LABS: Glucose Point of Care 206 mg/dL (70-110)
[2024-08-28 13:16] LABS: Anion Gap 17.6 (5-19); Blood Urea Nitrogen 17 mg/dL (8-23); Calcium 8.9 mg/dL (8.5-10.5); Carbon Dioxide 22 mmol/L (22-29); Chloride 96 mmol/L (98-107); Glomerular Filtration Rate 86.1 mL/min (90-130); Glucose 223 mg/dL (65-115); Osmolality Calculated 280 mOsm/kg (285-295); Potassium 4.6 mmol/L (3.5-5.1); Sodium 131 mmol/L (136-145)
--- NOTE | 2024-08-28 14:30 | PC.NURSE ---
Discharge paperwork discussed with patient. All questions were answered. IV was removed. Patient was assisted with ADLs and dressing by this nurse. Patient stated his sister would be picking him up. Patient educated to notify staff when his sister arrived.
--- NOTE | 2024-08-28 15:06 | PC.NURSE ---
Patient escorted to exit, via wheelchair, by MARYA Heller with all belongings at 1500.
== END 2024-08-28 15:00 | disposition home health service (06) | DRG 240 ==
PROVIDERS: Orthopaedic Surgery; Admitting Provider Internal Medicine; PCP Nurse Practitioner Family; Visit Provider Student in an Organized Health Care Education/Training Program
PROC: 0Y6J0Z1 Detachment at Left Lower Leg, High, Open Approach (ICD-10-PCS; CPT 27880; principal; 2024-08-24 08:00)
DX: E11.51 Type 2 diabetes mellitus with diabetic peripheral angiopathy without gangrene (principal); L03.116 Cellulitis of left lower limb; L97.419 Non-pressure chronic ulcer of right heel and midfoot with unspecified severity; E11.621 Type 2 diabetes mellitus with foot ulcer; E11.40 Type 2 diabetes mellitus with diabetic neuropathy, unspecified; L97.522 Non-pressure chronic ulcer of other part of left foot with fat layer exposed; E11.628 Type 2 diabetes mellitus with other skin complications; B95.62 Methicillin resistant Staphylococcus aureus infection as the cause of diseases classified elsewhere; Z79.4 Long term (current) use of insulin; Z79.84 Long term (current) use of oral hypoglycemic drugs; Z79.85 Long-term (current) use of injectable non-insulin antidiabetic drugs; B97.4 Respiratory syncytial virus as the cause of diseases classified elsewhere; I10 Essential (primary) hypertension; I48.91 Unspecified atrial fibrillation; Z79.01 Long term (current) use of anticoagulants; Z86.14 Personal history of Methicillin resistant Staphylococcus aureus infection; Z89.412 Acquired absence of left great toe; Z89.411 Acquired absence of right great toe; Z89.422 Acquired absence of other left toe(s); Z89.421 Acquired absence of other right toe(s)
CPT/HCPCS: 11042; 36415; 36416; 73630; 80048; 80053; 80061; 80202; 82607; 82962; 83036; 83540; 83550; 84443; 85025; 86850; 86900; 87040; 87486; 87581; 87633; 88307; 88311; 93005; 93926; 93971; 94640; 96372; 97162; 97165; 97530; 97597; G0379; J0330; J0612; J0692; J1171; J1650; J1815; J1885; J2250; J2405; J2704; J2795; J3010; J3370; J7050; J7512; J7799

== ENCOUNTER → 2024-09-01 14:51 | Outpatient (BNVA) | payer MEDICARE, MEDICAID, SELFPAY | PROVIDERS: PCP Nurse Practitioner Family; Visit Provider Thoracic Surgery (Cardiothoracic Vascular Surgery) | DX: E11.52 Type 2 diabetes mellitus with diabetic peripheral angiopathy with gangrene (principal); E11.621 Type 2 diabetes mellitus with foot ulcer; L97.511 Non-pressure chronic ulcer of other part of right foot limited to breakdown of skin | CPT/HCPCS: 97597 ==

== ENCOUNTER → 2024-09-08 10:18 | Outpatient (BNVA) | payer MEDICARE, MEDICAID, SELFPAY | PROVIDERS: PCP Nurse Practitioner Family; Visit Provider Thoracic Surgery (Cardiothoracic Vascular Surgery) | DX: Z09 Encounter for follow-up examination after completed treatment for conditions other than malignant neoplasm (principal); Z87.2 Personal history of diseases of the skin and subcutaneous tissue | CPT/HCPCS: 99212; A6210 ==

== ENCOUNTER → 2024-09-12 13:21 | Outpatient (BNVA) | payer MEDICARE, MEDICAID, SELFPAY | PROVIDERS: PCP Nurse Practitioner Family; Visit Provider Orthopaedic Surgery | DX: S88.112D Complete traumatic amputation at level between knee and ankle, left lower leg, subsequent encounter (principal); X58.XXXD Exposure to other specified factors, subsequent encounter | CPT/HCPCS: 99024 ==

== ENCOUNTER → 2024-09-19 09:30 | Outpatient (BNVA) | payer MEDICARE, MEDICAID, SELFPAY | PROVIDERS: PCP Nurse Practitioner Family; Visit Provider Orthopaedic Surgery | DX: Z89.512 Acquired absence of left leg below knee (principal) | CPT/HCPCS: 99024 ==

== ENCOUNTER → 2024-10-07 08:54 | Outpatient (BNVA) | payer MEDICARE, MEDICAID, SELFPAY | PROVIDERS: PCP Nurse Practitioner Family; Visit Provider Orthopaedic Surgery | DX: Z89.512 Acquired absence of left leg below knee (principal) | CPT/HCPCS: 99024 ==

== ENCOUNTER → 2024-10-17 12:54 | Outpatient (BNVA) | payer MEDICARE, MEDICAID, SELFPAY | PROVIDERS: PCP Nurse Practitioner Family; Visit Provider Thoracic Surgery (Cardiothoracic Vascular Surgery) | DX: I96 Gangrene, not elsewhere classified (principal); T87.81 Dehiscence of amputation stump; Y83.8 Other surgical procedures as the cause of abnormal reaction of the patient, or of later complication, without mention of misadventure at the time of the procedure; Z89.512 Acquired absence of left leg below knee | CPT/HCPCS: 11042; 97597; 99203 ==

== ENCOUNTER → 2024-10-21 07:54 | Outpatient (BNVA) | payer MEDICARE, MEDICAID, SELFPAY | PROVIDERS: PCP Nurse Practitioner Family; Visit Provider Orthopaedic Surgery | DX: Z98.890 Other specified postprocedural states (principal); Z89.512 Acquired absence of left leg below knee | CPT/HCPCS: 99024 ==

== ENCOUNTER → 2024-10-24 09:47 | Outpatient (BNVA) | payer MEDICARE, MEDICAID, SELFPAY | PROVIDERS: PCP Nurse Practitioner Family; Visit Provider Thoracic Surgery (Cardiothoracic Vascular Surgery) | DX: I96 Gangrene, not elsewhere classified (principal); T87.81 Dehiscence of amputation stump; Y83.8 Other surgical procedures as the cause of abnormal reaction of the patient, or of later complication, without mention of misadventure at the time of the procedure; Z89.512 Acquired absence of left leg below knee | CPT/HCPCS: 97597 ==

== ENCOUNTER → 2024-10-31 08:57 | Outpatient (BNVA) | payer MEDICARE, MEDICAID, SELFPAY | PROVIDERS: PCP Nurse Practitioner Family | DX: I96 Gangrene, not elsewhere classified (principal); T87.81 Dehiscence of amputation stump; Y83.8 Other surgical procedures as the cause of abnormal reaction of the patient, or of later complication, without mention of misadventure at the time of the procedure; Z89.512 Acquired absence of left leg below knee | CPT/HCPCS: 97597; A6212; A6213 ==

== ENCOUNTER → 2024-11-07 13:12 | Outpatient (BNVA) | payer MEDICARE, MEDICAID, SELFPAY | PROVIDERS: PCP Nurse Practitioner Family; Visit Provider Thoracic Surgery (Cardiothoracic Vascular Surgery) | DX: I96 Gangrene, not elsewhere classified (principal); T87.81 Dehiscence of amputation stump; Y83.8 Other surgical procedures as the cause of abnormal reaction of the patient, or of later complication, without mention of misadventure at the time of the procedure; Z89.512 Acquired absence of left leg below knee; Z09 Encounter for follow-up examination after completed treatment for conditions other than malignant neoplasm | CPT/HCPCS: 97597 ==

== ENCOUNTER → 2024-11-18 08:19 | Outpatient (BNVA) | payer MEDICARE, MEDICAID, SELFPAY | PROVIDERS: PCP Nurse Practitioner Family; Visit Provider Orthopaedic Surgery | DX: Z89.512 Acquired absence of left leg below knee (principal) | CPT/HCPCS: 99024 ==

== ENCOUNTER → 2025-06-27 10:43 | Outpatient (BNVA) | payer MEDICARE, SELFPAY | PROVIDERS: PCP Nurse Practitioner Family; Visit Provider Podiatrist Foot & Ankle Surgery | DX: E11.621 Type 2 diabetes mellitus with foot ulcer (principal); L97.512 Non-pressure chronic ulcer of other part of right foot with fat layer exposed; Z89.431 Acquired absence of right foot; E11.42 Type 2 diabetes mellitus with diabetic polyneuropathy; M24.571 Contracture, right ankle; Z79.4 Long term (current) use of insulin; E11.51 Type 2 diabetes mellitus with diabetic peripheral angiopathy without gangrene | CPT/HCPCS: 99214 ==

== ENCOUNTER → 2025-06-28 09:24 | Outpatient (BNVA) | payer MEDICARE, SELFPAY | PROVIDERS: PCP Nurse Practitioner Family; Visit Provider Thoracic Surgery (Cardiothoracic Vascular Surgery) | DX: E11.52 Type 2 diabetes mellitus with diabetic peripheral angiopathy with gangrene (principal); E11.621 Type 2 diabetes mellitus with foot ulcer; L97.512 Non-pressure chronic ulcer of other part of right foot with fat layer exposed | CPT/HCPCS: 11042; A6252 ==

== ENCOUNTER → 2025-07-05 10:10 | Outpatient (BNVA) | payer MEDICARE, SELFPAY | PROVIDERS: PCP Nurse Practitioner Family; Visit Provider Thoracic Surgery (Cardiothoracic Vascular Surgery) | DX: E11.52 Type 2 diabetes mellitus with diabetic peripheral angiopathy with gangrene (principal); E11.621 Type 2 diabetes mellitus with foot ulcer; L97.511 Non-pressure chronic ulcer of other part of right foot limited to breakdown of skin | CPT/HCPCS: 97597; A6210; A6219 ==

== ENCOUNTER → 2025-07-11 13:17 | Outpatient (BNVA) | payer MEDICARE, SELFPAY | PROVIDERS: PCP Nurse Practitioner Family; Visit Provider Thoracic Surgery (Cardiothoracic Vascular Surgery) | DX: E11.52 Type 2 diabetes mellitus with diabetic peripheral angiopathy with gangrene (principal); E11.621 Type 2 diabetes mellitus with foot ulcer; L97.511 Non-pressure chronic ulcer of other part of right foot limited to breakdown of skin | CPT/HCPCS: 97597 ==

== ENCOUNTER → 2025-07-19 11:21 | Outpatient (BNVA) | payer MEDICARE, MEDICAID, SELFPAY | PROVIDERS: PCP Nurse Practitioner Family; Visit Provider Thoracic Surgery (Cardiothoracic Vascular Surgery) | DX: E11.52 Type 2 diabetes mellitus with diabetic peripheral angiopathy with gangrene (principal); E11.621 Type 2 diabetes mellitus with foot ulcer; L97.511 Non-pressure chronic ulcer of other part of right foot limited to breakdown of skin | CPT/HCPCS: 97597; A6219 ==